=== PATIENT | female | born 1950 | race Caucasian/White ===

== ENCOUNTER 2020-02-08 06:20 | Outpatient (REF) | payer MEDICARE, SELFPAY ==
[2020-02-08 07:39] LABS: MANUAL DIFF FLAG NO
[2020-02-08 07:43] LABS: Basophils Percent Auto 0.4 % (0-2); Eosinophils Absolute Auto 0.2 X10*3/uL (0.0-0.4); Eosinophils Percent Auto 2.1 % (0-4); Hematocrit 44.4 % (37-47); Hemoglobin 14.4 g/dl (12.0-16.0); Imm Gran Abs Auto 0.01 X10*3/uL (0.00-0.03); Imm Gran Pct Auto 0.1 % (0.0-0.4); Lymphocytes Absolute Auto 2.2 X10*3/uL (1.2-4.9); Lymphocytes Percent Auto 29.5 % (20-40); Mean Corpuscular HGB Conc 32.4 g/dl (31.0-35.0); Mean Corpuscular Hemoglobin 28.6 pg (27.0-33.0); Mean Corpuscular Volume 88.3 fL (80-98); Mean Platelet Volume 10.5 fL (9.4-12.3); Monocytes Absolute Auto 0.6 X10*3/uL (0.1-1.2); Monocytes Percent Auto 8.3 % (2-11); Neutrophils Absolute Auto 4.4 X10*3/uL (2.0-8.3); Neutrophils Percent Auto 59.6 % (45-73); Platelet Count 231 X10*3/uL (160-400); Red Blood Count 5.03 X10*6/uL (4.20-5.50); Red Cell Distribution Width 13.6 % (11.0-16.0); White Blood Count 7.3 X10*3/uL (4.8-10.8)
[2020-02-08 08:18] LABS: Alanine Aminotransferase 14 U/L (0-31); Alkaline Phosphatase 96 U/L (39-117); Anion Gap 14 (12-20); Aspartate Amino Transferase 17 U/L (5-31); Bilirubin Total 0.3 mg/dL (0.0-1.0); Blood Urea Nitrogen 11 mg/dL (9-16); Calcium 8.5 mg/dL (8.4-10.2); Carbon Dioxide 28 mmol/L (22-29); Chloride 104 mmol/L (96-108); Cholesterol 188 mg/dL; Estimated Glomerular Filt Rate > 60; Glucose Fasting 104 mg/dL (60-99); HDL Cholesterol 50 mg/dL; LDL Cholesterol Calculated 120 mg/dl; Potassium 4.5 mmol/l (3.3-5.1); Sodium 141 mmol/L (135-145); Total Protein 6.8 g/dL (6.5-8.0); Triglycerides 93 mg/dL
== END 2020-02-08 06:21 | disposition home or self-care (01) ==
LOC: HO.LAB 06:20
PROVIDERS: Visit Provider Internal Medicine Medical Oncology
DX: E66.9 Obesity, unspecified (principal); E78.5 Hyperlipidemia, unspecified
CPT/HCPCS: 36415; 80053; 80061; 85025

== ENCOUNTER 2020-06-04 07:20 | Outpatient (REF) | payer MEDICARE, SELFPAY ==
[2020-06-04 07:55] LABS: MANUAL DIFF FLAG NO
[2020-06-04 08:00] LABS: Basophils Percent Auto 0.5 % (0-2); Eosinophils Absolute Auto 0.2 X10*3/uL (0.0-0.4); Eosinophils Percent Auto 2.8 % (0-4); Hematocrit 45.5 % (37-47); Hemoglobin 14.9 g/dl (12.0-16.0); Imm Gran Abs Auto 0.02 X10*3/uL (0.00-0.03); Imm Gran Pct Auto 0.3 % (0.0-0.4); Lymphocytes Absolute Auto 2.8 X10*3/uL (1.2-4.9); Lymphocytes Percent Auto 37.4 % (20-40); Mean Corpuscular HGB Conc 32.7 g/dl (31.0-35.0); Mean Corpuscular Hemoglobin 28.7 pg (27.0-33.0); Mean Corpuscular Volume 87.7 fL (80-98); Mean Platelet Volume 10.3 fL (9.4-12.3); Monocytes Absolute Auto 0.6 X10*3/uL (0.1-1.2); Neutrophils Absolute Auto 3.9 X10*3/uL (2.0-8.3); Platelet Count 217 X10*3/uL (160-400); Red Blood Count 5.19 X10*6/uL (4.20-5.50); Red Cell Distribution Width 14.1 % (11.0-16.0); White Blood Count 7.5 X10*3/uL (4.8-10.8)
[2020-06-04 08:28] LABS: Alanine Aminotransferase 14 U/L (0-31); Alkaline Phosphatase 90 U/L (39-117); Anion Gap 11 (12-20); Aspartate Amino Transferase 15 U/L (5-31); Bilirubin Total 0.5 mg/dL (0.0-1.0); Blood Urea Nitrogen 12 mg/dL (9-16); Calcium 8.9 mg/dL (8.4-10.2); Carbon Dioxide 30 mmol/L (22-29); Chloride 105 mmol/L (96-108); Estimated Glomerular Filt Rate > 60; Glucose Fasting 105 mg/dL (60-99); Potassium 4.3 mmol/L (3.3-5.1); Sodium 142 mmol/L (135-145); Total Protein 6.7 g/dL (6.5-8.0)
[2020-06-04 08:50] LABS: Free T4 (Free Thyroxine) 0.96 ng/dL (0.71-1.85); Thyroid Stimulating Hormone 0.61 uIU/mL (0.32-4.0); Vitamin D 25-OH Total 61.4 ng/mL (>30)
== END 2020-06-04 07:21 | disposition home or self-care (01) ==
LOC: HO.LAB 07:20
PROVIDERS: PCP Internal Medicine Medical Oncology; Visit Provider Internal Medicine Medical Oncology
DX: E78.5 Hyperlipidemia, unspecified (principal); E66.9 Obesity, unspecified
CPT/HCPCS: 36415; 80053; 82306; 84439; 84443; 85025

== ENCOUNTER 2020-09-12 06:06 | Outpatient (REF) | payer MEDICARE, SELFPAY | END 2020-09-12 06:07 | disposition home or self-care (01) | LOC: HO.LAB 06:06 | PROVIDERS: PCP Psychiatry & Neurology Neurology; Visit Provider Internal Medicine Medical Oncology | DX: G40.209 Localization-related (focal) (partial) symptomatic epilepsy and epileptic syndromes with complex partial seizures, not intractable, without status epilepticus (principal) | CPT/HCPCS: 36415; 80184 ==

== ENCOUNTER 2020-12-13 06:32 | Outpatient (REF) | payer MEDICARE, SELFPAY ==
[2020-12-13 07:54] LABS: MANUAL DIFF FLAG NO
[2020-12-13 08:01] LABS: Basophils Percent Auto 0.5 % (0-2); Eosinophils Absolute Auto 0.2 X10*3/uL (0.0-0.4); Eosinophils Percent Auto 2.5 % (0-4); Hematocrit 43.2 % (37-47); Hemoglobin 14.2 g/dl (12.0-16.0); Imm Gran Abs Auto 0.01 X10*3/uL (0.00-0.03); Imm Gran Pct Auto 0.2 % (0.0-0.4); Lymphocytes Absolute Auto 3.2 X10*3/uL (1.2-4.9); Lymphocytes Percent Auto 49.6 % (20-40); Mean Corpuscular HGB Conc 32.9 g/dl (31.0-35.0); Mean Corpuscular Volume 88.2 fL (80-98); Mean Platelet Volume 10.3 fL (9.4-12.3); Monocytes Absolute Auto 0.6 X10*3/uL (0.1-1.2); Monocytes Percent Auto 9.4 % (2-11); Neutrophils Absolute Auto 2.5 X10*3/uL (2.0-8.3); Neutrophils Percent Auto 37.8 % (45-73); Platelet Count 188 X10*3/uL (160-400); Red Cell Distribution Width 13.7 % (11.0-16.0); White Blood Count 6.5 X10*3/uL (4.8-10.8)
[2020-12-13 08:27] LABS: Alanine Aminotransferase 13 U/L (0-31); Albumin Level 3.9 g/dL (3.5-5.0); Alkaline Phosphatase 89 U/L (39-117); Anion Gap 10 (12-20); Aspartate Amino Transferase 16 U/L (5-31); Bilirubin Total 0.3 mg/dL (0.0-1.0); Blood Urea Nitrogen 15 mg/dL (9-16); Carbon Dioxide 32 mmol/L (22-29); Chloride 105 mmol/L (96-108); Cholesterol 179 mg/dL; Estimated Glomerular Filt Rate > 60; Glucose Fasting 91 mg/dL (60-99); HDL Cholesterol 60 mg/dL; LDL Cholesterol Calculated 105 mg/dl; Potassium 4.5 mmol/L (3.3-5.1); Sodium 142 mmol/L (135-145); Total Protein 6.4 g/dL (6.5-8.0); Triglycerides 72 mg/dL
[2020-12-13 08:51] LABS: Free T4 (Free Thyroxine) 0.99 ng/dL (0.71-1.85); Thyroid Stimulating Hormone 1.29 uIU/mL (0.32-4.0)
== END 2020-12-13 06:33 | disposition home or self-care (01) ==
LOC: HO.LAB 06:32
PROVIDERS: PCP Internal Medicine Medical Oncology; Visit Provider Internal Medicine Medical Oncology
DX: E78.5 Hyperlipidemia, unspecified (principal); E03.9 Hypothyroidism, unspecified; E66.9 Obesity, unspecified
CPT/HCPCS: 36415; 80053; 80061; 84439; 84443; 85025

== ENCOUNTER 2021-05-15 10:46 | Outpatient (REF) | payer MEDICARE, SELFPAY ==
--- NOTE | ~2021-05-15 | MM_ITS ---
EXAMINATION: MM SCREENING DIGITAL BREAST TOMOSYNTHESIS, BILATERAL CLINICAL INFORMATION: Screening. Asymptomatic. Family history breast cancer, sister. The lifetime risk of breast cancer based on the Tyrer-Cuzick Model is 10%. COMPARISON: Mammography: 12/23/2019, 12/17/2018, 12/10/2017 TECHNIQUE: Digital breast tomosynthesis is performed in both the craniocaudal and mediolateral oblique views along with computer-aided detection (CAD). Synthesized 2D images are generated from the tomosynthesis. FINDINGS: There are scattered areas of fibroglandular density (ACR BI-RADS breast composition Category b). The breasts are mildly symmetrically smaller with secondary mild increased density consistent with weight loss. The parenchymal pattern is otherwise similar to prior exams. There is no developing density or interval mass or architectural abnormality or abnormal calcifications. The axilla and skin contours are unremarkable. MM/MM tomosynthesis screening BI IMPRESSION: No significant changes from prior studies. ASSESSMENT: BI-RADS 2: Benign RECOMMENDATION: Routine annual mammography screening. This patient's information was entered into a reminder system with a target due date for their next mammogram.
== END 2021-05-15 10:47 | disposition home or self-care (01) ==
LOC: HO.MAMMO 10:46
PROVIDERS: PCP Internal Medicine Medical Oncology; Visit Provider Internal Medicine Medical Oncology
DX: Z12.31 Encounter for screening mammogram for malignant neoplasm of breast (principal)
CPT/HCPCS: 77063; 77067

== ENCOUNTER 2021-08-14 06:23 | Outpatient (REF) | payer MEDICARE, SELFPAY ==
[2021-08-14 06:33] LABS: MANUAL DIFF FLAG NO
[2021-08-14 07:16] LABS: Basophils Percent Auto 0.5 % (0-2); Eosinophils Absolute Auto 0.2 X10*3/uL (0.0-0.4); Eosinophils Percent Auto 2.8 % (0-4); Hematocrit 43.8 % (37.0-47.0); Hemoglobin 14.3 g/dl (12.0-16.0); Imm Gran Abs Auto 0.01 X10*3/uL (0.00-0.03); Imm Gran Pct Auto 0.2 % (0.0-0.4); Lymphocytes Absolute Auto 3.2 X10*3/uL (1.2-4.9); Lymphocytes Percent Auto 50.3 % (20-40); Mean Corpuscular HGB Conc 32.6 g/dl (31.0-35.0); Mean Corpuscular Hemoglobin 29.2 pg (27.0-33.0); Mean Corpuscular Volume 89.4 fL (80.0-98.0); Mean Platelet Volume 9.8 fL (9.4-12.3); Monocytes Absolute Auto 0.6 X10*3/uL (0.1-1.2); Monocytes Percent Auto 8.9 % (2-11); Neutrophils Absolute Auto 2.4 x10*3/uL (2.0-8.3); Neutrophils Percent Auto 37.3 % (45-73); Platelet Count 186 X10*3/uL (160-400); Red Cell Distribution Width 13.2 % (11.0-16.0); White Blood Count 6.4 X10*3/uL (4.8-10.8)
[2021-08-14 07:43] LABS: Alanine Aminotransferase 16 U/L (0-31); Albumin Level 4.1 g/dL (3.5-5.0); Alkaline Phosphatase 94 U/L (39-117); Anion Gap 11 (12-20); Aspartate Amino Transferase 18 U/L (5-31); Bilirubin Total 0.2 mg/dL (0.0-1.0); Blood Urea Nitrogen 18 mg/dL (9-16); Calcium 9.6 mg/dL (8.4-10.2); Carbon Dioxide 32 mmol/L (22-29); Chloride 102 mmol/L (96-108); Cholesterol 213 mg/dL; Estimated Glomerular Filt Rate 57; Glucose Fasting 99 mg/dL (60-99); HDL Cholesterol 65 mg/dL; LDL Cholesterol Calculated 123 mg/dl; Potassium 4.4 mmol/L (3.3-5.1); Sodium 141 mmol/L (135-145); Triglycerides 125 mg/dL
[2021-08-14 08:06] LABS: Thyroid Stimulating Hormone 1.79 uIU/mL (0.32-4.0)
== END 2021-08-14 06:24 | disposition home or self-care (01) ==
LOC: HO.LAB 06:23
PROVIDERS: PCP Internal Medicine Medical Oncology; Visit Provider Internal Medicine Medical Oncology
DX: E03.9 Hypothyroidism, unspecified (principal); E78.5 Hyperlipidemia, unspecified; E66.3 Overweight
CPT/HCPCS: 36415; 80053; 80061; 84439; 84443; 85025

== ENCOUNTER → 2022-03-12 15:22 | Outpatient (BNVA) | payer MEDICARE, SELFPAY | PROVIDERS: PCP Internal Medicine Medical Oncology; Visit Provider Obstetrics & Gynecology | DX: N75.0 Cyst of Bartholin's gland (principal) | CPT/HCPCS: 99202 ==

== ENCOUNTER 2022-05-21 10:40 | Outpatient (REF) | payer MEDICARE, SELFPAY ==
--- NOTE | ~2022-05-21 | MM_ITS ---
EXAMINATION: MM SCREENING DIGITAL BREAST TOMOSYNTHESIS, BILATERAL CLINICAL INFORMATION: Screening. Asymptomatic. Family history breast cancer, sister. The lifetime risk of breast cancer based on the Tyrer-Cuzick Model is 4%. COMPARISON: Mammography: 05/15/2021, 12/23/2019, 12/17/2018 TECHNIQUE: Digital breast tomosynthesis is performed in both the craniocaudal and mediolateral oblique views along with computer-aided detection (CAD). Synthesized 2D images are generated from the tomosynthesis. FINDINGS: There are scattered areas of fibroglandular density (ACR BI-RADS breast composition Category b). There are no significant masses, abnormal calcifications, or other abnormalities. No architectural abnormality or developing density or significant change from prior studies. The skin contours are smooth. MM/MM tomosynthesis screening BI IMPRESSION: No mammographic evidence of malignancy. ASSESSMENT: BI-RADS 1: Negative RECOMMENDATION: Routine annual mammography screening. This patient's information was entered into a reminder system with a target due date for their next mammogram.
== END 2022-05-21 10:41 | disposition home or self-care (01) ==
LOC: HO.MAMMO 10:40
PROVIDERS: PCP Internal Medicine Medical Oncology; Visit Provider Internal Medicine Medical Oncology
DX: Z12.31 Encounter for screening mammogram for malignant neoplasm of breast (principal)
CPT/HCPCS: 77063; 77067

== ENCOUNTER → 2022-06-13 08:59 | Outpatient (BNVA) | payer MEDICARE, SELFPAY | PROVIDERS: PCP Internal Medicine Medical Oncology; Visit Provider Obstetrics & Gynecology | DX: Z13.89 Encounter for screening for other disorder (principal) ==

== ENCOUNTER 2022-06-23 07:40 | Outpatient (REF) | payer MEDICARE, SELFPAY ==
[2022-06-23 08:10] LABS: MANUAL DIFF FLAG NO
[2022-06-23 08:49] LABS: Basophils Percent Auto 0.6 % (0-2); Eosinophils Absolute Auto 0.2 X10*3/uL (0.0-0.4); Eosinophils Percent Auto 2.9 % (0-4); Hematocrit 45.5 % (37.0-47.0); Hemoglobin 14.7 g/dl (12.0-16.0); Imm Gran Abs Auto 0.02 X10*3/uL (0.00-0.03); Imm Gran Pct Auto 0.3 % (0.0-0.4); Lymphocytes Absolute Auto 2.3 X10*3/uL (1.2-4.9); Lymphocytes Percent Auto 34.6 % (20-40); Mean Corpuscular HGB Conc 32.3 g/dl (31.0-35.0); Mean Corpuscular Hemoglobin 27.6 pg (27.0-33.0); Mean Corpuscular Volume 85.5 fL (80.0-98.0); Mean Platelet Volume 9.6 fL (9.4-12.3); Monocytes Absolute Auto 0.7 X10*3/uL (0.1-1.2); Monocytes Percent Auto 10.5 % (2-11); Neutrophils Absolute Auto 3.4 x10*3/uL (2.0-8.3); Neutrophils Percent Auto 51.1 % (45-73); Platelet Count 242 X10*3/uL (160-400); Red Blood Count 5.32 X10*6/uL (4.20-5.50); Red Cell Distribution Width 13.5 % (11.0-16.0); White Blood Count 6.6 X10*3/uL (4.8-10.8)
[2022-06-23 09:39] LABS: Alanine Aminotransferase 16 U/L (0-31); Alkaline Phosphatase 108 U/L (39-117); Anion Gap 13 (12-20); Aspartate Amino Transferase 16 U/L (5-31); Bilirubin Total 0.4 mg/dL (0.0-1.0); Blood Urea Nitrogen 18 mg/dL (9-16); Calcium 9.2 mg/dL (8.4-10.2); Carbon Dioxide 28 mmol/L (22-29); Chloride 104 mmol/L (96-108); Estimated Glomerular Filt Rate > 60; Glucose Fasting 95 mg/dL (60-99); Sodium 140 mmol/L (135-145); Total Protein 6.8 g/dL (6.5-8.0)
[2022-06-23 09:43] LABS: Free T4 (Free Thyroxine) 0.94 ng/dL (0.71-1.85); Thyroid Stimulating Hormone 0.72 uIU/mL (0.32-4.0); Vitamin D 25-OH Total 47.9 ng/mL (>30)
== END 2022-06-23 07:41 | disposition home or self-care (01) ==
LOC: HO.LAB 07:40
PROVIDERS: PCP Internal Medicine Medical Oncology; Visit Provider Internal Medicine Medical Oncology
DX: G40.219 Localization-related (focal) (partial) symptomatic epilepsy and epileptic syndromes with complex partial seizures, intractable, without status epilepticus (principal); E03.9 Hypothyroidism, unspecified; E78.5 Hyperlipidemia, unspecified; E66.3 Overweight; Z79.899 Other long term (current) drug therapy
CPT/HCPCS: 36415; 80053; 80184; 82306; 84439; 84443; 85025

== ENCOUNTER 2022-07-18 09:19 | Outpatient (REF) | payer MEDICARE, SELFPAY ==
--- NOTE | ~2022-07-18 | MM_ITS ---
EXAMINATION: BONE DENSITOMETRY CLINICAL INDICATION: Asymptomatic menopausal state. COMPARISON: None (current study represents initial baseline exam). TECHNIQUE: Using a Zerply DXA System (software version: 13.1) manufactured by [employer], dual-energy x-ray absorptiometry was performed of the lumbar spine and left hip. The images are of good technical quality. Summary results are attached. FINDINGS: AP SPINE L1-L4: BMD 1.023 g/cm2, Z-score 0.0, T-score -1.3, osteopenia. LEFT FEMUR, NECK: BMD 0.733 g/cm2, Z-score -0.7, T-score -2.2, osteopenia. LEFT FEMUR, TOTAL: BMD 0.770 g/cm2, Z-score -0.6, T-score -1.9, osteopenia. IDENTIFIED RISK FACTORS: Anticonvulsant, menopause. HISTORY OF FRACTURE: None listed. MEDICATIONS: Calcium supplements or multivitamin, vitamin D. MM/XR DEXA axial skeleton IMPRESSION: 1. DIAGNOSIS: Osteopenia based on the lowest T-score value of -2.2 in the femoral neck applying World Health Organization criteria. 2. 10-YEAR FRACTURE RISK PREDICTION, FRAX: Major osteoporotic fracture (clinical spine, forearm, hip or shoulder) 12.5%. Hip fracture 2.8%. 3. Treatment Recommendations: NOF guidelines recommend consideration for treatment in postmenopausal women and men age 50 and older presenting with the following: -A hip or vertebral (clinical or morphometric) fracture. -T-score less than or equal to -2.5 at the femoral neck or spine after appropriate evaluation to exclude secondary causes. -Low bone mass at the hip or spine and a 10-year fracture probability by FRAX of greater than or equal to 3% for hip fracture or greater than or equal to 20% for major osteoporotic fracture based on the [place] adapted WHO algorithm. 4. Other Recommendations: All treatment decisions require clinical judgment and consideration of individual patient factors, including patient preferences, comorbidities, previous drug use, risk factors not captured in the FRAX model (e.g. frailty, falls, vitamin D deficiency, increased bone turnover, interval significant decline in bone density) and possible under or overestimation of fracture risk by FRAX. Additional medical evaluation for secondary cause of low bone mineral density may be appropriate. FUTURE SCAN RECOMMENDATION: People with diagnosed cases of osteoporosis or at high risk for fracture should have regular bone mineral density tests. For patients eligible for Medicare, routine testing is allowed once every 2 years. The testing frequency can be increased to one year for patients who have rapidly progressing disease, those who are receiving or discontinuing medical therapy to restore bone mass, or have additional risk factors.
== END 2022-07-18 09:20 | disposition home or self-care (01) ==
LOC: HO.MAMMO 09:19
PROVIDERS: PCP Internal Medicine Medical Oncology; Visit Provider Obstetrics & Gynecology
DX: Z13.820 Encounter for screening for osteoporosis (principal); Z78.0 Asymptomatic menopausal state
CPT/HCPCS: 77080

== ENCOUNTER → 2022-08-15 10:18 | Outpatient (BNVA) | payer MEDICARE, SELFPAY | PROVIDERS: PCP Internal Medicine Medical Oncology; Visit Provider Obstetrics & Gynecology | DX: M85.80 Other specified disorders of bone density and structure, unspecified site (principal) | CPT/HCPCS: 99212 ==

== ENCOUNTER → 2022-09-27 15:40 | Outpatient (BNVA) | payer MEDICARE, SELFPAY | PROVIDERS: PCP Internal Medicine Medical Oncology; Visit Provider Internal Medicine Endocrinology, Diabetes & Metabolism | DX: E03.9 Hypothyroidism, unspecified (principal); R63.5 Abnormal weight gain; Z68.34 Body mass index [BMI] 34.0-34.9, adult; Z79.899 Other long term (current) drug therapy | CPT/HCPCS: 99212 ==

== ENCOUNTER 2022-11-07 10:29 | Outpatient (AMB) | payer MEDICARE, SELFPAY ==
--- NOTE | 2022-11-07 10:40 | A.OFFVIS_ITS ---
Intake VS Expanded 11/07/22 10:47 Height 5 ft Weight 175 lb 0.752 oz BMI 34.2 Intake Visit Reasons: f/u hypothyroidism Allergies divalproex sodium [From DEPAKOTE] Allergy (Unknown, Verified 09/27/22 15:45) UNKNOWN phenytoin [Dilantin] Allergy (Unknown, Verified 09/27/22 15:45) hives From DILANTIN Allergy (Mild, Uncoded 09/27/22 15:45) HIVES Benadryl Adverse Reaction (Unknown, Uncoded 09/27/22 15:45) rapid heart beat HPI Nutrition Presentation Details Pt presents for MNT for weight gain. Pt was referred by Dr. Chavis Pt reports having tried noom for weight loss in 2019 and was able to reach 138 lbs from 245 lbs . Pt reports in the the past 2 years she has gradually gained weight. Per recorded wt here at [facility] in 03/2022 weight was 170 today 11/07/22 at 175 lbs. Pt reports typically eating 3 meals per day , choosing lean protein foods and salads, admits to gradually increase frequency of higher fat foods /snacks. Breakfast 2good yogurt with 1/2 c blackberries , sour dough bread L: salad with protein chicken , yogurt dressing D: poultry/zucchini, water eating out: 2 x/wk Snacks/empty fer : 2x/wk fish : 0-1/m fruits:0-1/d vegetables : 2-4 serving/d dairy:3 servings/da starches> 19 serving/d fluids: water, , cofee physical activity: sedentary ETOH/SMOking: denies JGZ-Hgxgzzx-Pp.Jeor Equation Height 5 ft Weight 175 lb Resting Metabolic Rate 1235.17 Calculated Activity Level Sedentary Calories Needed to Maintain Weight 1482.20 Diagnosis Nutrition problem #1 overweight/obesity As related to (etiology) #1 excess energy intake As evidenced by (sign/symptom) #1 high BMI (34.2 on 11/07/22) Most Recent Diabetes Results: Cholesterol 213 mg/dL 08/14/21 HDL Cholesterol 65 mg/dL 08/14/21 Triglycerides 125 mg/dL 08/14/21 Creatinine 0.84 mg/dL (0.5-1.4) 06/23/22 Blood Urea Nitrogen 18 mg/dL (9-16) H 06/23/22 Sodium 140 mmol/L (135-145) 06/23/22 Potassium 5.0 mmol/L (3.3-5.1) 06/23/22 Chloride 104 mmol/L (96-108) 06/23/22 Carbon Dioxide 28 mmol/L (22-29) 06/23/22 Calcium 9.2 mg/dL (8.4-10.2) 06/23/22 AST 16 U/L (5-31) 06/23/22 ALT 16 U/L (0-31) 06/23/22 Total Protein 6.8 g/dL (6.5-8.0) 06/23/22 Albumin 4.0 g/dL (3.5-5.0) 06/23/22 [facility] Medical History (Updated 09/27/22 @ 16:18 by Elian Chavis MD) Hypothyroidism Seizure Weight gain Surgical History H/O tubal ligation History of cholecystectomy History of tonsillectomy and adenoidectomy Family History Father HTN (hypertension) Diabetes Mother HTN (hypertension) Diabetes Hyperlipemia Social History Household Members: Spouse Housing: House Alcohol intake: never Patient Tobacco Use Status: Never used Tobacco Current occupational status: retired Sexual orientation: Straight/Heterosexual Gender identity: Female Female Reproductive History Menstrual Age of Menarche: 13 Assessment & Plan Assessment & Plan (1) Weight gain: Code(s): R63.5 - Abnormal weight gain Plan: wt: 80 Est kcal needs as per MSJ: 5086-6976 (40% carb, 30% protein/fat) Est fluid needs as per 25-30 ml/d: 2000 Est prot per day as per 1 g/kg bw: 80 Recommend fiber intake : 8-10 g per day and gradually increase to 25-28 g per day for women or as tolerated Recommend sodium intake per day : less than 2000 mg Educated patient on: ( R = reviewed V = verbalizes understanding N/R = needs review N/A = not applicable * Food sources of carbohydrate, adequate serving sizes and its role in various health conditions: R V * Differences between complex carbohydrates a simple carbohydrates, role of fiber in diet: R V * Differences between types of fats and role in diet (mono on saturated fat fatty acids, saturated fatty acids, trans fats): R V * Food sources of sodium in salt and healthy modifications for heart health in kidney health: R V * Healthy plate method concept: R V * Physical activity: Benefits a precaution: R V Patient Instructions: Reduce on fat intake by: have a fruit in place of pastries on a daily basis Choose to bake/grill/steam in stead of frying Practive mindful eating Coding Level of Care Code Nutr Indiv Intake (48857) Diagnoses Weight gain R63.5 Time Spent (min) 30
[2022-11-07 10:47] VITALS: BMI 34.2
[2022-11-12 12:52] VITALS: BMI 34.2
== END 2022-11-07 11:17 | disposition home or self-care (01) ==
PROVIDERS: PCP Internal Medicine Medical Oncology; Visit Provider Dietitian, Registered
DX: R63.5 Abnormal weight gain (principal)

== ENCOUNTER → 2022-11-07 10:29 | Outpatient (BNVA) | payer MEDICARE, SELFPAY | PROVIDERS: PCP Internal Medicine Medical Oncology; Visit Provider Dietitian, Registered | DX: R63.5 Abnormal weight gain (principal) | CPT/HCPCS: 97802 ==

== ENCOUNTER 2022-12-25 06:33 | Outpatient (REF) | payer MEDICARE, SELFPAY ==
[2022-12-25 06:44] LABS: MANUAL DIFF FLAG NO
[2022-12-25 07:17] LABS: Basophils Percent Auto 0.6 % (0-2); Eosinophils Absolute Auto 0.2 X10*3/uL (0.0-0.4); Eosinophils Percent Auto 3.3 % (0-4); Hematocrit 43.5 % (37.0-47.0); Hemoglobin 14.1 g/dl (12.0-16.0); Imm Gran Abs Auto 0.01 X10*3/uL (0.00-0.03); Imm Gran Pct Auto 0.1 % (0.0-0.4); Lymphocytes Absolute Auto 3.5 X10*3/uL (1.2-4.9); Lymphocytes Percent Auto 48.8 % (20-40); Mean Corpuscular HGB Conc 32.4 g/dl (31.0-35.0); Mean Corpuscular Hemoglobin 28.5 pg (27.0-33.0); Mean Corpuscular Volume 88.1 fL (80.0-98.0); Mean Platelet Volume 9.6 fL (9.4-12.3); Monocytes Absolute Auto 0.6 X10*3/uL (0.1-1.2); Monocytes Percent Auto 8.3 % (2-11); Neutrophils Absolute Auto 2.8 x10*3/uL (2.0-8.3); Neutrophils Percent Auto 38.9 % (45-73); Platelet Count 218 X10*3/uL (160-400); Red Blood Count 4.94 X10*6/uL (4.20-5.50); Red Cell Distribution Width 13.5 % (11.0-16.0); White Blood Count 7.2 X10*3/uL (4.8-10.8)
[2022-12-25 07:50] LABS: Alanine Aminotransferase 11 U/L (0-31); Albumin Level 3.7 g/dL (3.5-5.0); Alkaline Phosphatase 104 U/L (39-117); Anion Gap 12 (12-20); Aspartate Amino Transferase 14 U/L (5-31); Bilirubin Total 0.3 mg/dL (0.0-1.0); Blood Urea Nitrogen 13 mg/dL (9-16); Calcium 8.9 mg/dL (8.4-10.2); Carbon Dioxide 27 mmol/L (22-29); Chloride 107 mmol/L (96-108); Cholesterol 201 mg/dL (<200); Estimated Glomerular Filt Rate > 60; Glucose Fasting 99 mg/dL (60-99); HDL Cholesterol 65 mg/dL (>40); LDL Cholesterol Calculated 119 mg/dL (<100); Potassium 4.1 mmol/L (3.3-5.1); Sodium 142 mmol/L (135-145); Total Protein 6.7 g/dL (6.5-8.0); Triglycerides 86 mg/dL (<150)
[2022-12-25 08:06] LABS: Free T4 (Free Thyroxine) 0.93 ng/dL (0.71-1.85)
== END 2022-12-25 06:34 | disposition home or self-care (01) ==
LOC: HO.LAB 06:33
PROVIDERS: Internal Medicine Endocrinology, Diabetes & Metabolism; Visit Provider Internal Medicine Medical Oncology
DX: E03.9 Hypothyroidism, unspecified (principal); E78.5 Hyperlipidemia, unspecified; E66.9 Obesity, unspecified
CPT/HCPCS: 36415; 80053; 80061; 84439; 84443; 85025

== ENCOUNTER 2023-03-27 10:02 | Outpatient (AMB) | payer MEDICARE, SELFPAY ==
--- NOTE | 2023-03-27 10:03 | MHC.OFFVIS ---
Intake Vital Signs 03/27/23 10:04 Height 5 ft Weight 185 lb 13.595 oz BMI 36.3 BP 120/82 Blood Pressure Location Lt brachial Position Sitting Pulse 74 Pulse Source Pulse Oximeter Intake Visit Reasons: f/u hypothyroidism-LVM Intake Note: Patient present today for Hypothyroidism follow up visit. Material Processor Required: No Accompanied by: Self / Same As Patient Allergies divalproex sodium [From DEPAKOTE] Allergy (Unknown, Verified 03/27/23 10:10) UNKNOWN phenytoin [Dilantin] Allergy (Unknown, Verified 03/27/23 10:10) hives From DILANTIN Allergy (Mild, Uncoded 09/27/22 15:45) HIVES Benadryl Adverse Reaction (Unknown, Uncoded 09/27/22 15:45) rapid heart beat HPI HPI Comments History of Present Illness Details This is a 72-year-old white female previously seen by myself here at [place] for management of hypothyroidism. Patient is currently on Levoxyl 125 mcg q.d.. She denies any symptoms of hypothyroidism hyperthyroidism [facility] Medical History (Updated 09/27/22 @ 16:18 by Elian Chavis MD) Weight gain Seizure Hypothyroidism Surgical History History of cholecystectomy History of tonsillectomy and adenoidectomy H/O tubal ligation Family History Father HTN (hypertension) Diabetes Mother HTN (hypertension) Diabetes Hyperlipemia Social History Household Members: Spouse Housing: House Alcohol intake: never Patient Tobacco Use Status: Never used Tobacco Current occupational status: retired Sexual orientation: Straight/Heterosexual Gender identity: Female Female Reproductive History Menstrual Age of Menarche: 13 Physical Exam Vital Signs: Last Vital Signs Pulse 74 03/27/23 10:04 BP 120/82 03/27/23 10:04 BMI result Body Mass Index 36.3 Const Other: Thyroid gland is normal size weighs about 15 g . There are no thyroid nodules palpated. Reflexes 2+ DTR Assessment & Plan Assessment & Plan (1) Hypothyroidism: Code(s): E03.9 - Hypothyroidism, unspecified Plan: This 72-year-old white female with a history of hypothyroidism be replaced on 125 mcg of Levoxyl She appears to be clinically and biochemically euthyroid Plan is to continue current management (2) Weight gain: Code(s): R63.5 - Abnormal weight gain Plan: See above plan for thyroid Medications: Refilled Levoxyl (levothyroxine) 125 mcg PO DAILY 30 tabs 5RF NS Coding Level of Care Code Est Pt Level 3 (55520) Diagnoses Hypothyroidism E03.9 Weight gain R63.5
[2023-03-27 10:04] VITALS: BP 120/82; PULSE 74; BMI 36.3
== END 2023-03-27 10:40 | disposition home or self-care (01) ==
PROVIDERS: PCP Internal Medicine Medical Oncology; Visit Provider Internal Medicine Endocrinology, Diabetes & Metabolism
DX: E03.9 Hypothyroidism, unspecified (principal); R63.5 Abnormal weight gain
CPT/HCPCS: 99213

== ENCOUNTER → 2023-03-27 10:02 | Outpatient (BNVA) | payer MEDICARE, SELFPAY | PROVIDERS: PCP Internal Medicine Medical Oncology; Visit Provider Internal Medicine Endocrinology, Diabetes & Metabolism | DX: E03.9 Hypothyroidism, unspecified (principal); R63.5 Abnormal weight gain | CPT/HCPCS: 99212 ==

== ENCOUNTER 2023-05-24 10:57 | Outpatient (REF) | payer MEDICARE, SELFPAY | END 2023-05-24 10:58 | disposition home or self-care (01) | LOC: HO.MAMMO 10:57 | PROVIDERS: PCP Internal Medicine Medical Oncology; Visit Provider Internal Medicine Medical Oncology | DX: Z12.31 Encounter for screening mammogram for malignant neoplasm of breast (principal) | CPT/HCPCS: 77063; 77067 ==

== ENCOUNTER → 2023-05-24 11:00 | Outpatient (BNV) | payer MEDICARE, SELFPAY | PROVIDERS: PCP Internal Medicine Medical Oncology; Visit Provider Radiology Diagnostic Radiology | DX: Z12.31 Encounter for screening mammogram for malignant neoplasm of breast (principal) | CPT/HCPCS: 77063; 77067 ==

== ENCOUNTER 2023-07-12 15:00 | Outpatient (REF) | payer MEDICARE, SELFPAY ==
--- NOTE | ~2023-07-12 | XR_ITS ---
EXAMINATION: XR CHEST CLINICAL INFORMATION: Pneumonia COMPARISON: Chest x-ray July 26, 2015 TECHNIQUE: 2 views of the chest were obtained. FINDINGS: Lungs are clear. No pulmonary vascular congestion. There is no pleural effusion. The heart size is normal. The cardiac and mediastinal contours are normal. There are multilevel degenerative changes of dorsal spine. Surgical clips right upper quadrant of abdomen XR/XR chest 2V IMPRESSION: Unremarkable examination.
== END 2023-07-12 15:01 | disposition home or self-care (01) ==
LOC: HO.XRAY 15:00
PROVIDERS: PCP Internal Medicine Medical Oncology; Visit Provider Internal Medicine Medical Oncology
DX: J18.9 Pneumonia, unspecified organism (principal)
CPT/HCPCS: 71046

== ENCOUNTER 2023-08-20 09:32 | Outpatient (AMB) | payer MEDICARE, SELFPAY ==
[2023-08-20 09:44] VITALS: BP 110/66; BMI 37.3
--- NOTE | 2023-08-20 09:44 | MHC.OFFVIS ---
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 No complaints. Last Pap/HPV was many years ago with no history of abnormal Pap smears last 25 Last Mammogram was BI-RADS 1 in 06/01 No previous screening Colonoscopy Last DEXA scan was in 07/29, in the low risk category PFSH Medical History Weight gain Seizure Hypothyroidism Surgical History History of cholecystectomy History of tonsillectomy and adenoidectomy H/O tubal ligation Family History Father HTN (hypertension) Diabetes Mother HTN (hypertension) Diabetes Hyperlipemia Social History Household Members: Spouse Housing: House Alcohol intake: never Patient Tobacco Use Status: Never used Tobacco Patient : No Current occupational status: retired Sexual orientation: Straight/Heterosexual Gender identity: Female Female Reproductive History Menstrual Age of Menarche: 13 control method: permanent sterilization Total pregnancies: 2 Full term: 2 Number of Living Children: 2 Date of Mammogram: 05/24/23 Review of Systems Const All systems reviewed & are unremarkable except as noted in HPI and below Card Reports as per HPI Resp Reports as per HPI GI Reports as per HPI and Reports no additional complaints Reports as per HPI Physical Exam Vital Signs: Last Vital Signs BP 110/66 08/20/23 09:44 BMI result Body Mass Index 37.3 Const General: cooperative, healthy appearing and comfortable Chest Chest palpation & inspection: normal inspection of the chest and normal palpation of entire chest wall Breast/axilla inspection: normal inspection of the breasts and normal inspection of the axillae Breast/axilla palpation: normal palpation of the breasts, normal palpation of the axillae and no axillary lymphadenopathy Resp Effort & Inspection: normal respiratory effort Auscultation: clear to auscultation bilaterally Percussion: percussion normal Cardio Palpation: normal PMI Rate: regular rate Rhythm: regular rhythm Heart sounds: no murmurs and no rubs Peripheral pulses: Peripheral pulses 2+ throughout GI Inspection: Yes normal to inspection Palpation (GI): Soft to palpation, nontender, no guarding, not rigid and No hepatosplenomegaly present Percussion: Yes normal to percussion Auscultation: normal bowel sounds Rectal Exam - Female: deferred General: Yes bladder normal to palpation External Female Exam: No lesion Speculum Exam - Vagina: normal appearance of the vagina, normal palpation, normal vaginal discharge and not erythematous Speculum Exam - Cervix: normal appearance of the cervix and normal palpation Bimanual exam- vagina & uterus: normal bimanual exam, normal palpation, uterine size normal, bladder normal to palpation, consistency normal and normal palpation Bimanual Exam- Adnexa, other: normal adnexae, no masses and no tenderness Assessment & Plan Assessment & Plan (1) Well woman exam: Code(s): Z01.419 - Encounter for gynecological examination (general) (routine) without abnormal findings Category: Medical Plan: Co testing not indicated since the patient 's age is above 65 with no history of abnormal Pap smears last 25 years. Counseled the patient about the recommended dietary allowance of 1200 mg of Calcium & 800 IU of vitamin D. Instructions given the patient to schedule next screening Mammogram in 06/02 Offered the patient to be referred for screening colonoscopy , the patient would like to think about it and get back to us The patient was instructed to perform monthly self-breast exams and to schedule a 2 week DEXA scan follow-up appointment and an annual exam in a year; All questions answered and the patient verbalized understanding. Coding Level of Care Code Est Pt Prev Care >65y(98774) Diagnoses Well woman exam Z01.419
== END 2023-08-20 10:05 | disposition home or self-care (01) ==
LOC: HO.HWS 09:32
PROVIDERS: PCP Internal Medicine Medical Oncology; Visit Provider Obstetrics & Gynecology
DX: Z01.419 Encounter for gynecological examination (general) (routine) without abnormal findings (principal)
CPT/HCPCS: 99397; G0101

== ENCOUNTER → 2023-08-20 09:32 | Outpatient (BNVA) | payer MEDICARE, SELFPAY | PROVIDERS: PCP Internal Medicine Medical Oncology; Visit Provider Obstetrics & Gynecology | DX: Z01.419 Encounter for gynecological examination (general) (routine) without abnormal findings (principal); Z98.51 Tubal ligation status; Z78.0 Asymptomatic menopausal state | CPT/HCPCS: G0101 ==

== ENCOUNTER 2024-01-18 07:33 | Outpatient (REF) | payer MEDICARE, SELFPAY ==
[2024-01-18 07:57] LABS: MANUAL DIFF FLAG NO
[2024-01-18 09:01] LABS: Basophils Percent Auto 0.6 % (0-2); Eosinophils Absolute Auto 0.2 X10*3/uL (0.0-0.4); Eosinophils Percent Auto 2.8 % (0-4); Hematocrit 44.4 % (37.0-47.0); Hemoglobin 14.8 g/dl (12.0-16.0); Imm Gran Abs Auto 0.02 X10*3/uL (0.00-0.03); Imm Gran Pct Auto 0.3 % (0.0-0.4); Lymphocytes Absolute Auto 2.4 X10*3/uL (1.2-4.9); Lymphocytes Percent Auto 38.7 % (20-40); Mean Corpuscular HGB Conc 33.3 g/dl (31.0-35.0); Mean Corpuscular Volume 87.1 fL (80.0-98.0); Mean Platelet Volume 9.4 fL (9.4-12.3); Monocytes Absolute Auto 0.5 X10*3/uL (0.1-1.2); Monocytes Percent Auto 8.3 % (2-11); Neutrophils Absolute Auto 3.1 x10*3/uL (2.0-8.3); Neutrophils Percent Auto 49.3 % (45-73); Platelet Count 222 X10*3/uL (160-400); Red Cell Distribution Width 13.7 % (11.0-16.0); White Blood Count 6.2 X10*3/uL (4.8-10.8)
[2024-01-18 09:31] LABS: Alanine Aminotransferase 17 U/L (0-31); Albumin Level 3.9 g/dL (3.5-5.0); Alkaline Phosphatase 107 U/L (39-117); Anion Gap 12 (12-20); Aspartate Amino Transferase 16 U/L (5-31); Bilirubin Total 0.3 mg/dL (0.0-1.0); Blood Urea Nitrogen 14 mg/dL (9-16); Calcium 9.2 mg/dL (8.4-10.2); Carbon Dioxide 29 mmol/L (22-29); Chloride 105 mmol/L (96-108); Cholesterol 229 mg/dL (<200); Estimated Glomerular Filt Rate > 60; Glucose Fasting 108 mg/dL (60-99); HDL Cholesterol 58 mg/dL (>40); LDL Cholesterol Calculated 141 mg/dL (<100); Potassium 4.4 mmol/L (3.3-5.1); Sodium 142 mmol/L (135-145); Total Protein 7.1 g/dL (6.5-8.0); Triglycerides 150 mg/dL (<150)
[2024-01-18 09:43] LABS: Free T4 (Free Thyroxine) 0.86 ng/dL (0.71-1.85); Thyroid Stimulating Hormone 1.96 uIU/mL (0.32-4.0); Vitamin D 25-OH Total 48.1 ng/mL (>30)
== END 2024-01-18 07:34 | disposition home or self-care (01) ==
LOC: HO.LAB 07:33
PROVIDERS: PCP Internal Medicine Medical Oncology; Visit Provider Internal Medicine Medical Oncology
DX: J45.909 Unspecified asthma, uncomplicated (principal); E03.9 Hypothyroidism, unspecified; E78.5 Hyperlipidemia, unspecified; E66.9 Obesity, unspecified
CPT/HCPCS: 36415; 80053; 80061; 82306; 84439; 84443; 85025

== ENCOUNTER 2024-03-25 09:49 | Outpatient (AMB) | payer MEDICARE, SELFPAY ==
--- OUTSIDE RECORDS SUMMARY | 2024-03-25 09:52 | XMS_ITS ---
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 Name Role Phone Elian Russell Primary Care Provider REASON FOR VISIT Chest Cold-Message Only Social History Sex Assigned At : Social History Observation Description Sex Assigned At Female Encounters Encounter Location Date Provider Diagnosis Elian Russell III, MD [address] [place] [address] [place] [address] 02/07/2024 Elian Russell Plan Of Treatment Next Appt Details Provider Name:Elian Russell, 06/26/2024 10:00:00 AM, [address] [place] [address] [place], [address], Provider Name:Elian Russell, 01/27/2025 03:00:00 PM, [address] [place] [address] [place], [address], Progress Notes * Bjorn CORTEZOB:1950 (73 yo F)Acc No.[id number]:02/07/2024 Patient:?Barbara CORTEZ :1950???Age:73 Y???Sex:Female Address:[address] [place], [address] * true * Date:? Generated for Printi sabrina/Lorenzo/eTransmitting on:?03/25/2024 09:52 AM EST
--- OUTSIDE RECORDS SUMMARY | 2024-03-25 09:52 | XMS_ITS ---
Author Organization Elian Russell III, MD Address [address] [place] [address] Care Team Providers Care Emergency Room Rn Name Role Phone Elian Russell Primary Care Provider Allergies Allergen (clinical drug ingredient) Drug/Non Drug Allergy documented on EMR Reaction Allergy Type Onset Date Status Mold Unknown Allergy Active Dust Mites Unknown Allergy Active Guaiatussin AC stomach upset Drug Allergy Active Seasonale Unknown Drug Allergy Active phenytoin Dilantin HIVES Drug Allergy Active ciprofloxacin Cipro SEVERE ACID REFLUX Drug Allergy Active diphenhydramine Benadryl Unknown Drug Allergy A ctive sulfamethoxazole / trimethoprim Sulfamethoxazole/ Trimethoprim stomach upset Drug Allergy Active REASON FOR VISIT Epilepsy, Obesity, [...] Date Provider Diagnosis Elian Russell III, MD [address] [place] [address] [address] [facility] [place] [address] 03/02/2024 Elian Russell Acute asthmatic bronchitis J45.909 [...] her to the weight loss program at [facility]. 03/02/2024 Acquired hypothyroidism (ICD-10 - E03.9) [...] the [facility] weight loss program Provider Name:Elian Russell, 06/26/2024 10:00:00 AM, [address] [place] [address] [address], [place], [address], Provider Name:Elian Russell, 01/27/2025 03:00:00 PM, [address] [place] [address] [address], [place], [address], Progress Notes * Bjorn ELAMOB: (73 yo F)Acc No.[id number]:03/02/2024 Patient:?DIEGOTessaTaraan Provider:?Elian Russell MD :1950???Age:73 Y???Sex:Female D ate:03/02/2024 Address[address] [facility] Subjective: * Chief Complaints: * ???EpilepsyObesityHypothyroi dismHyperlipidemia * HPI: ???:?Telehealth?Location of provider rendering services:?{...} [address] [place] [address] ?Location of patient:?address listed in demographics for today's visit ?Patient identification confirmed using:?Name, ?Telehealth method:?Telephone only. Patient not visible to care provider. ?Consent:?Patient verbally consented to treatment, Patient verbally consented to billing insurance company, Patient informed of any privacy concerns related to method of visit ?Total time spent with patient (mins)?15 ?This telehealth visit took place over 15 minutes with the patient at home and me in my office.? She gave consent for billing. The patient, [...] does not cover weight loss drugs. * ROS:?General/Constitutional:?pain?only normal aches and pains.?Denies?Chills,?denies.?Fatigue?admits.?Denies?Fever,?denies.?ENT:?Decreased hearing?denies.?Respiratory:?Cough?denies.?Cardiovascular:?Chest pain with exertion?denies.?Dyspnea on exertion?denies.?Shortness of breath?denies.?Gastrointestinal:?Constipation?denies.?Decreased appetite?denies.?Diarrhea?that is infrequent.?Heartburn?occasional.?Nausea?denies.?Rectal bleeding?denies.?Vomiting?denies.?Hematology:?bruising?denies.?petechiae?denies.?Swollen glands?none have been noted.?Genitourinary:?Frequent urination?denies.?Musculoskeletal:?Muscle aches?denies.?Painful joints?denies.?Sciatica?denies.?Weakness?denies.?Skin:?Itching?denies.?Rash?denies.?Skin lesion(s)?denies.?Neurologic:?Difficulty speaking?denies.?Dizziness?denies.?Headache?denies.?Low back pain?denies.?Psychiatric:?Depressed mood?denies.? * Medical History:? * Surgical History:?Tubal liga tion 1995cholecystectomy 2012tonsillecctomy No history * Hospitalization/Major Diagno stic Procedure:?No history * Family History:?Father: dece ased 64 yrs, diagnosed with CVD, DM, HTN, Hyperlipidemia.?Mother: 88 yrs, diagnosed with DM, HTN, Hyperlipidemia.?Daughter(s): alive.?Siblings: alive.?Maternal aunt: .?3 sister(s) - healthy. 2 daughter(s) - healthy. .? Her father at 64 yrs Dx with COPD,diabetes type 2 ,heart disease ,alcoholism, lung disease (activities concierge). Her mother is alive Dx with type 2 diabetes, HTN, emphysema and heart disease. One sister has MS, another sister has heart problems, another sister has mental health issues, another sister with a blood disorder.Maternal aunt with lung CA.. One sister has had lung cancer resected. * Social History:?Tobacco Use:?Tobacco Use/Smoking?Patient is a?nonsmoker ?Additional Findings: Tobacco Non-User?Aggressive non-smoker ?Tobacco Control (Standard)?Tobacco use:?Nonsmoker ?Additional Findings: Tobacco non-user?Aggressive nonsmoker ???She was born at [facility] in [place], [place]. She has been to Dario for 46 years. They have 2 daughters, Maliha and Selene and 2 healthy grandchildren. She worked until she was 57 and then retired. She has no toxic exposures. 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 * Medications:?TakingTriamcino lone Acetonide 0.1 % Cream 1 application Externally [...] reviewed and reconciled with the patient * Allergies:?Dilantin: HIVESCi pro: SEVERE ACID REFLUXBenadrylGuaiatussin AC: stomach upsetSulfamethoxazole/Trimethoprim: stomach upsetMoldDust MitesSeasonaleno[Allergies Verified] Objective: * Vitals:?Ht: 60, Wt:200, BMI: 39.06, Ht-cm: 152.4, Wt-k.72. Assessment: * Assessment: 1.?Obesity (BMI 30.0-34.9) - E66.9 (Primary)???Notes :Her insurance does not cover weight loss.? At her request we have referred her to the weight loss program at [facility].???2.?Acute asthmatic bronchitis - J45.909???Notes :She has a new viral syndrome as does her she will use a cough suppressant containing dextromethorphan and an expectorant. He will use Tylenol. She will call me if the fever returns.???3.?Acquired hypothyroidism - E03.9???Notes :Comprehensive blood work including thyroid function tests will be done.? No change in her medication today was necessary.???4.?Hyperlipidemia - E78.5???Notes :Her lipids have been stable.? We discussed weight loss healthy diet today at length.??? Plan: * Treatment: 2.?Acute asthmatic bronchiti s? Continue Triamcinolone Acetonide Cream, 0.1 %, 1 application, Externally, Twice a day;?Continue PHENobarbital Tablet, 32.4 MG, 1 tablet, Orally, five times a day;?Continue Multivitamin Adults 50+ Tablet, -, Orally;?Continue Vitamin D Tablet, 1000 UNIT, 1 tablet, Orally, Once a day;?Continue Levothyroxine Sodium Tablet, 125 MCG, TAKE ONE TABLET BY MOUTH EVERY DAY IN THE MORNING ON AN EMPTY STOMACH;?Continue Melatonin Tablet, 3 MG, 1 tablet at bedtime as needed, Orally, Once a day;?Continue predniSONE Tablet, 20 MG, 1 tablet with food or milk, Orally, Once a day; Continue Wegovy Solution Auto-injector, 0.25 MG/0.5ML, 0.5 mL, Subcutaneous, weekly;?Continue Semaglutide Tablet, 3 MG, one tablet, Orally, once a day.?? 3.?Acquired hypothyroidism?LAB: PROFILE, FASTING (COMPREHENSIVE METABOLIC) ?LAB: TSH (THYROID STIMULATING HORMONE) ?LAB: CBC WITH AUTO DIFF ?LAB: Lipid Panel ?LAB: Free T4 (Free Thyroxine) 4.?Hyperlipidemia?LAB: PROFILE, FASTING (COMPREHENSIVE METABOLIC) ?LAB: TSH (THYROID STIMULATING HORMONE) ?LAB: CBC WITH AUTO DIFF ?LAB: Lipid Panel ?LAB: Free T4 (Free Thyroxine) 5.?Others? Continue B12.?? * Procedure Codes:?35006 PHONE E/M BY LAITH 11-20 MIN * Preventive Medicine:? ??Counseling:?Care goal follow-up plan:?Counseling for abnormal BMI given?Yes ?Above Normal BMI Follow-up?Dietary management education, guidance, and counseling, Dietary needs education, Exercise promotion: strength training, Exercise promotion: stretching, Feeding regime, Giving encouragement to exercise, Lifestyle education regarding diet, Nutrition / feeding management, Nutrition therapy, Prescribed activity/exercise education, Prescribed diet education, Prescribed dietary intake, Special diet education, Weight monitoring , Intervention, Order not done: Medical or Other reason not done * Follow Up:?4 Months, 3 or 4 months (Reason: OV, To monitor the patient's progress with the '[facility]' weight loss program) * Images: * Sign off status: Completed true * Provider:?Elian Russell MD Date:?02/07 Generated for Ben bennett/Lorenzo/eTransmitting on:?03/25/2024 09:52 AM EST History and Physical Notes * HPI (History of Present Illness) Category Sub-Category Detail Notes Telehealth Location of [facility] rendering services:: {...} [address] [place] [address] Location of patient:: address listed in demographics [...]
--- OUTSIDE RECORDS SUMMARY | 2024-03-25 09:52 | XMS_ITS ---
Author Organization Elian Russell III, MD Address [address] [place] [address] Care Team Providers Care Store Coordinator Name Role Phone Elian Russell Primary Care Provider [phone] Allergies Allergen (clinical drug ingredient) Drug/Non Drug [...] upset Drug Allergy Active REASON FOR VISIT Viral syndrome [...] Date Provider Diagnosis Elian Russell III, MD [address] [place] [address] [address] [place], [place] [id number] 02/10/2024 Elian Russell Acute asthmatic bronchitis J45.909 [...] Follow Up: 2 Weeks, Reason: Provider Name:Elian Russell, 06/26/2024 10:00:00 AM, [address] [place] [address] [address], [place], [phone], Provider Name:Elian Russell, 01/27/2025 03:00:00 PM, [address] [place] [address] [address], [place], [phone], Progress Notes * TaraFranciscoOB: 2 (73 yo F)Acc No.[id number]:02/10/2024 Patient:?Barbara ELAM Provider:?Elian Russell MD :1950???Age:73 Y???Sex:Female D ate:02/10/2024 Address:[address] [place] [address] [facility] [id number] Subjective: * Chief Complaints: * ???Viral syndrome * HPI: ???:?This telehealth visit took place over 15 minutes with the patient at home and me in my office.? She gave consent for billing.? She reports that she has had a bad cold for the last several days.? He has had a cough which is nonproductive and chills and anorexia.? He has had a sore throat and plugged ears and sinuses.? Her temperature was up to 100 and to decrease several days ago but is now within normal limits.? She denies any recent vertigo.? She is rapidly improving.? She was asked to give me a call in 72 hours to report her status.? We were unable to get her insurance company to reimburse Wegovy.? I have prescribed oral semaglutide aat her request. ?Telehealth?Location of provider rendering services:?{...} [address] [place] [address] ?Location of patient:?address listed in demographics for today's visit ?Patient identification confirmed using:?Name, ?Telehealth method:?Telephone only. Patient not visible to care provider. ?Consent:?Patient verbally consented to treatment, Patient verbally consented to billing insurance company, Patient informed of any privacy concerns related to method of visit ?Total time spent with patient (mins)?15 * ROS:?General/Constitutional:?pain?only normal aches and pains.?Chills?associated with fever.?Fatigue?admits.?Fever?up to 102 degrees.?ENT:?Decreased hearing?denies.?Respiratory:?Cough?non-productive.?Cardiovascular:?Chest pain with exertion?denies.?Dyspnea on exertion?denies.?Shortness of breath?denies.?Gastrointestinal:?Constipation?occasional.?Decreased appetite?denies.?Diarrhea?denies.?Heartburn?denies.?Nausea?denies.?Rectal bleeding?denies.?Vomiting?denies.?Hematology:?bruising?denies.?petechiae?denies.?Swollen glands?none have been noted.?Genitourinary:?Frequent urination?denies.?Musculoskeletal:?Muscle aches?denies.?Painful joints?denies.?Sciatica?denies.?Weakness?denies.?Skin:?Itching?denies.?Rash?denies.?Skin lesion(s)?denies.?Neurologic:?Difficulty speaking?denies.?Dizziness?denies.?Headache?denies.?Low back pain?denies.?Psychiatric:?Depressed mood?denies.? * Medical History:? * Surgical History:?Tubal liga tion 1995cholecystectomy 2012tonsillecctomy No history * Hospitalization/Major Diagno stic Procedure:?No history * Family History:?Father: dece ased 64 yrs, diagnosed with DM, HTN, Hyperlipidemia, CVD.?Mother: 88 yrs, diagnosed with DM, HTN, Hyperlipidemia.?Daughter(s): alive.?Siblings: alive.?Maternal aunt: .?3 sister(s) - healthy. 2 daughter(s) - healthy. .? Her father at 64 yrs Dx with COPD,diabetes type 2 ,heart disease ,alcoholism, lung disease (electrical wirer). Her mother is alive Dx with type [...] Tobacco non-user?Aggressive nonsmoker ???She was born at [facility] in [place], [place]. She has been to Dario for 46 years. They have 2 daughters, Neftali and 2 healthy grandchildren. She worked until she was 57 and then retired. She has no toxic exposures. 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 * Medications:?TakingTriamcino lone Acetonide 0.1 % Cream [...] 39.06, Ht-cm: 152.4, Wt-k.72. 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 She is compliant with her phenobarbital and is up-to-date with her neurology visits.???2.?Acute asthmatic bronchitis - J45.909???Notes :She has a new viral syndrome as does her she will use a cough? suppressant containing dextromethorphan and an expectorant.? He will use Tylenol.? She will call me if the fever returns.???3.?Acquired hypothyroidism - E03.9???Notes :She is compliant with her medication and her levels have been normal. No change in her regimen as needed.???4.?Obesity (BMI 30.0- 34.9) - E66.9???Notes :She has gained 9 pounds. She admits to stress eating. We have discussed alternate ways of reducing stress. She declined an order for Contrave. I have prescribed Wegovy.??? Plan: * Treatment: 2.?Others? Continue B12.?? * Procedure Codes:?64567 PHONE E/M BY PHYS 11-20 MIN * Preventive Medicine:? ??Counseling:?Care goal follow-up plan:?Counseling for abnormal BMI given?Yes ?Above Normal BMI Follow-up?Dietary management education, guidance, and counseling, Dietary needs education * Follow Up:?2 Weeks * Images: * Sign off status: Completed true * Provider:?Elian Russell MD Date:?07/2023 Generated for Ben bennett/Lorenzo/Citlaliitting on:?03/25/2024 09:52 AM EST History and Physical Notes * HPI (History of Present Illness) Category Sub-Category Detail Notes Telehealth Location of [facility] rendering services:: {...} [address] [facility] [address] Location of patient:: address listed in demographics [...]
--- OUTSIDE RECORDS SUMMARY | 2024-03-25 09:53 | XMS_ITS | Patient Health Record ---
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 Role Phone Elian Russell Primary Care Provider [phone] Allergies Allergen (clinical drug ingredient) Drug/Non Drug [...] Sulfamethoxazole/ Trimethoprim stomach upset Drug Allergy Active Results Component Value Reference Range Notes URINE DIP STICK Reviewed date:01/27/2024 03:24:51 PM Interpretation: Performing Lab: Notes/Report: SG 1.005 1.005 - 1.025 pH 6.0 5.0 - 9.0 LUCILA Negative Negative - NIT Negative Negative - PRO 15 Negative - Trace GLU Negative Negative - KET Negative Negative - UBG 0.2 0.1 - 1.8 ROSIE negative 0.2 - 1.3 BLD Negative Negative - MM tomosynthesis screening B I Reviewed date:07/06/2023 07:04:51 PM Interpretation: Performing Lab: Notes/Report: [facility] [address] [place] [address] Mammography Report Signed Patient: Barbara Alas MR#: [id number] 807 : 1950 Acct:[id number] Age/Sex: 72 / F ADM Date: 05/24/23 Loc: [facility] Attending Dr: Elian Russell MD Ordering Physician: Elian Russell MD Results: 1Negativ e Date of Service: 05/24/23 Follow Up: 1 Year From Orig inal Mammogram Procedure(s): MM tomosynthesis screening BI Accession Number(s): [id number] cc: Elian Russell MD EXAMINATION: MM SCREENING DIGITAL BREAST TOMOSYNTHESIS, BILATERAL CLINICAL INFORMATION: Screening. Asymptomatic. COMPARISON: Mammography: This study is compared with prior exams dating back to 2018. TECHNIQUE: Digital breast tomosynthesis is performed in both the craniocaudal and mediolateral oblique views along with computer-aided detection (CAD). Synthesized 2D images are generated from the tomosynthesis. FINDINGS: There are scattered areas of fibroglandular density (ACR BI-RADS breast composition Category b). There are no significant masses, abnormal calcifications, or other abnormalities. MM/MM tomosynthesis screening BI IMPRESSION: No mammographic evidence of malignancy. ASSESSMENT: BI-RADS BI-RADS 1 - Negative RECOMMENDATION: Routine annual mammography screening. 1 year F/U This examination should not preclude the clinical evaluation of a suspicious palpable abnormality. This patient's information was entered into a reminder system with a target due date for their next mammogram. Dictated By: Yu Brunson MD Signed By: <Electronically signed by Yu Brunson MD in OV> 06/18/23 1229 DD/ 1120 TD/TT: Wafer Fab Operator: [place] [facility] [address] [place] [address] Mammography Report Signed Patient: Tara Alas MR#: [id number] 807 : 1950 Acct:[id number] Age/Sex: 72 / F ADM Date: 05/24/23 Loc: SHAW Attending Dr: Elian Russell MD Ordering Physician: Elian Russell MD Results: 1Negativ e Date of Service: 05/24/23 Follow Up: 1 Year From Orig inal Mammogram Procedure(s): MM tomosynthesis screening BI Accession Number(s): [id number] cc: Elian Russell MD EXAMINATION: MM SCREENING DIGITAL BREAST TOMOSYNTHESIS, BILATERAL CLINICAL INFORMATION: Screening. Asymptomatic. COMPARISON: Mammography: This study is compared with prior exams dating back to 2018. TECHNIQUE: Digital breast tomosynthesis is performed in both the craniocaudal and mediolateral oblique views along with computer-aided detection (CAD). Synthesized 2D image s are generated from the tomosynthesis. FINDINGS: There are scattered areas of fibroglandular density (ACR BI-RADS breast composition Category b). There are no significant masses, abnormal calcifications, or other abnormalities. MM/MM tomosynthesis screening BI IMPRESSION: No mammographic evidence of malignancy. ASSESSMENT: BI-RADS BI-RADS 1 - Negative RECOMMENDATION: Routine annual mammography screening. 1 year F/U This examination should not preclude the clinical evaluation of a suspicious palpable abnormality. This patient's information was entered into a reminder system with a target due date for their next mammogram. Dictated By: Yu Brunson MD Signed By: <Electronically signed by Yu Brunson MD in OV> 06/18/23 1229 DD/ 1120 TD/TT: Wafer Fab Operator: MAMMOGRAM DIGITAL BILATERAL SCREEN Reviewed date:01/27/2024 03:10:51 PM Interpretation:undefined Performing Lab: Notes/Report: undefined XR chest 2V Reviewed date:07/13/2023 07:25:08 PM Interpretation: Performing Lab: Notes/Report: [address] [address] XRay Report Signed Patient: Barbara Alas MR#: [id number] 807 : 1950 Acct:[id number] Age/Sex: 73 / F ADM Date: 07/12/23 Loc: HO.JANESSA Attending Dr: Elian Russell MD Ordering Physician: Elian Russell MD Date of Service: 07/12/23 Procedure(s): XR chest 2V Accession Number(s): [id number] cc: Elian Russell MD EXAMINATION: XR CHEST CLINICAL INFORMATION: Pneumonia COMPARISON: Chest x-ray July 26, 2015 TECHNIQUE: 2 views of the chest were obtained. FINDINGS: Lungs are clear. No pulmonary vascular congestion. There is no pleural effusion. The heart size is normal. The cardiac and mediastinal contours are normal. There are multilevel degenerative changes of dorsal spine. Surgical clips right upper quadrant of abdomen XR/XR chest 2V IMPRESSION: Unremarkable examination. Dictated By: Jayjay Javier MD Signed By: <Electronically signed by Jayjay Javier MD in OV> 07/12/23 1600 DD/ 1521 TD/TT: Wafer Fab Operator: CASSIDY [address] [address] XRay Report Signed Patient: Tara Alas MR#: [id number] 807 : 1950 Acct:[id number] Age/Sex: 73 / F ADM Date: 07/12/23 Loc: HO.XRAY Attending Dr: Elian Russell MD Ordering Physician: Elian Russell MD Date of Service: 07/12/23 Procedure(s): XR robin st 2V Accession Number(s): [id number] cc: Elian Russell MD EXAMINATION: XR CHEST CLINICAL INFORMATION: Pneumonia COMPARISON: Chest x-ray July TECHNIQUE: 2 views of the chest were obtained. FINDINGS: Lungs are clear. No pulmonary vascular congestion. There is no pleural effusion. The heart size is normal. The cardiac and mediastinal contours are normal. There are multilevel degenerative changes of dorsal spine. Surgical clips right upper quadrant of abdomen XR/XR chest 2V IMPRESSION: Unremarkable examination. Dictated By: Jayjay Javier MD Signed By: <Electronically signed by Jayjay Javier MD in OV> 07/12/23 1600 DD/ 1521 TD/TT: Wafer Fab Operator: CASSIDY Complete Blood Count Auto Di ff Reviewed date:01/20/2024 07:03:09 AM Interpretation: Performing Lab:[facility], [address] [place] [address] Notes/Report: White Blood Count 6.2 4.8-10.8 X10*3/uL Red Blood Count 5.10 4.20-5.50 X10*6/uL Hemoglobin 14.8 12.0-16.0 g/dl Hematocrit 44.4 37.0-47.0 % Mean Corpuscular Volume 87.1 80.0-98.0 fL Mean Corpuscular Hemoglobin 29.0 27.0-33.0 pg Mean Corpuscular HGB Conc 33.3 31.0-35.0 g/dl Red Cell Distribution Width 13.7 11.0-16.0 % Platelet Count 222 160-400 X10*3/uL Mean Platelet Volume 9.4 9.4-12.3 fL Neutrophils Percent Auto 49.3 45-73 % Imm Gran Pct Auto 0.3 0.0-0.4 % Lymphocytes Percent Auto 38.7 20-40 % Monocytes Percent Auto 8.3 2-11 % Eosinophils Percent Auto 2.8 0-4 % Basophils Percent Auto 0.6 0-2 % NRBC Pct Auto 0.0 0.0-0.2 /100WBC Neutrophils Absolute Auto 3.1 2.0-8.3 x10*3/uL Imm Gran Abs Auto 0.02 0.00-0.03 X10*3/uL Lymphocytes Absolute Auto 2.4 1.2-4.9 X10*3/uL Monocytes Absolute Auto 0.5 0.1-1.2 X10*3/uL Eosinophils Absolute Auto 0.2 0.0-0.4 X10*3/uL Basophils Absolute Auto 0.0 0.0-0.2 X10*3/uL NRBC Abs Auto 0.000 0.0-0.012 X10*3/uL Comprehensive [place]. Panel Fa st Reviewed date:01/20/2024 07:03:09 AM Interpretation: Performing Lab:[facility], [address] [place] [address] Notes/Report: Sodium 142 135-145 mmol/L Potassium 4.4 3.3-5.1 mmol/L Chloride 105 96-108 mmol/L Carbon Dioxide 29 22-29 mmol/L Anion Gap 12 12-20 Blood Urea Nitrogen 14 9-16 mg/dL Creatinine 0.84 0.5-1.4 mg/dL Estimated Glomerular Filt Rate > 60 NOTE: For -[place]aur[place] individuals, multiply the result by 1.210. Chronic Kidney Disease: Estimated GFR < 60 mL/min/1.73m2 Severe Kidney Disease: Estimated GFR < 15 mL/min/1.73m2 Glucose Fasting 108 60-99 mg/dL A fasting glucose from 100-125 mg/dl is considered impaired (pre-diabetes). Calcium 9.2 8.4-10.2 mg/dL Bilirubin Total 0.3 0.0-1.0 mg/dL Aspartate Amino Transferase 16 5-31 U/L Alanine Aminotransferase 17 0-31 U/L Total Protein 7.1 6.5-8.0 g/dL Albumin Level 3.9 3.5-5.0 g/dL Alkaline Phosphatase 107 39-117 U/L Lipid Panel Reviewed date:01/20/2024 07:03:09 AM Interpretation: Performing Lab:[address] [address] Notes/Report: Triglycerides 150 <150 mg/dL Desirable Triglyceride: less than 150 mg/dL Borderline High Triglyceride 150-199 mg/dL High Triglyceride: 200-499 mg/dL Very High Triglyceride: greater than or equal to 5OO mg/dL Cholesterol 229 <200 mg/dL Desirable Cholesterol: less than 200 mg/dL Borderline High Cholesterol: 200-239 mg/dL High Cholesterol: greater than 239 mg/dL LDL Cholesterol Calculated 141 <100 mg/dL Desirable LDL: less than 100 mg/dL Near Optimal/Above Optimal LDL: 110-129 mg/dL Borderline High LDL: 130-159 mg/dL High LDL: 160-189 mg/dL Very High LDL: greater than or equal to 190 mg/dL HDL Cholesterol 58 >40 mg/dL Desirable HDL: greater than 40 mg/dL Note: This HDL assay may give artificially low results in patients with liver disease. Vitamin D 25-OH Total Reviewed date:01/20/2024 07:03:09 AM Interpretation: Performing Lab:[address] [address] Notes/Report: Vitamin D 25-OH Total 48.1 >30 ng/mL Health Based Reference Values* < 20 ng/mL Deficient 20-30 ng/mL Insufficient > 30 ng/mL Sufficient *Mohit COBOS. N Engl J Med. 2007;357:266-280 Care must be taken in interpreting Vitamin D results from different laboratories and methodologies. Published data demonstrated that results from patients undergoing hemodialysis may show a negative bias when tested with various automated 25-OH vitamin D assays when compared to LC-MS/MS. When testing samples from patients whose predominant form of Vitamin D is Vitamin D2, such as patients receiving Vitamin D2 supplementation, results that are subtherapeutic should be confirmed with another method such as LC-MS/MS. Free T4 (Free Thyroxine) Reviewed date:01/20/2024 07:03:09 AM Interpretation: Performing Lab:[facility], [address] [place] [address] Notes/Report: Free T4 (Free Thyroxine) 0.86 0.71-1.85 ng/dL Thyroid Stimulating Hormone Reviewed date:01/20/2024 07:03:09 AM Interpretation: Performing Lab:[facility], [address] [place] [address] Notes/Report: Thyroid Stimulating Hormone 1.96 0.32-4.0 uIU/mL TSH 3rd Generation ([facility]) Reason For Referral No Information Medications Medication SIG (Take, Route, Frequency, Duration) Notes Start Date End Date Status Triamcinolone Acetonide 0.1 % 1 application Externally Twice a day 01/11/2023 Active PHENobarbital 32.4 MG 1 tablet Orally fi ve times a day Active Multivitamin Adults 50+ - Orally Active Vitamin D 1000 UNIT 1 tablet Orally Once a day Active Levothyroxine Sodium 125 MCG TAKE ONE TABLET BY MOUTH EVERY DAY IN THE MORNING ON AN EMPTY STOMACH Active Melatonin 3 MG 1 tablet at bedtime as needed Orally Once a day Active predniSONE 20 MG 1 tablet with food o r milk Orally Once a day 07/19/2023 Active B12 Active Wegovy 0.25 MG/0.5ML 0.5 mL Subcutaneous weekly 01/27/2024 Active Semaglutide 3 MG one tablet Orally on 02/10/2024 Active Immunizations Vaccine Route Administration Date Status Comme nts Influenza no Preserv 3 and > Unknown 01/29/2019 Administered PCV13 Unknown 01/29/2019 Administered Influenza, quad IM Intramuscular 03/01/2020 Administered COVID- 19 Vaccine Unknown 04/09/2021 Administered COVID- 19 Vaccine Unknown 07/13/2020 Administered Influenza no Preserv 3 and > Unknown 01/08/2017 Administered SHINGRIX Unknown 02/04/2021 Administered PCV13 Unknown 01/08/2017 Administered PPV 23 Unknown 01/29/2019 Administered SHINGRIX Unknown 06/07/2021 Administered Influenza, quad IM Intramuscular 01/24/2023 Administered COVID 19 [place] Unknown 07/13/2020 Administered Fluzone High-Dose (HD-IIV3) Unknown 01/08/2017 Administered Fluzone High-Dose (HD-IIV3) Unknown 01/02/2018 Administered Influenza High Dose Quadrivalent Unknown 01/08/2020 Administered Social History Tobacco Use: Social History Observation Description Date Details (start date - stop date) Never Smoker NA - NA Sex Assigned At : Social History Observation Description Sex Assigned At Female Tobacco Use/Smoking Question Answer Notes Patient is a nonsmoker Additional Findings: Tobacco Non-User Aggressive non-smoker Tobacco Control (Standard) Question Answer Notes Tobacco use: Nonsmoker Additional Findings: Tobacco non-user Aggressive nonsmoker AUDIT-C (Standard) Question Answer Notes Did you have a drink containing alcohol in the p ast year? No Points 0 Interpretation Negative Problems Problem Type SNOMED Code ICD Code Onset Dates Problem Status W/U Status Risk Notes Problem Hyperlipidemia (44046334) Hyperlipidemia (E78.5) Active confirmed Her lipids have been stable. We discussed weight loss healthy diet today at length. Problem [id number] Obesity (BMI 30.0-34.9) (E66.9) Active confirmed Her insurance does not cover weight loss. At her request we have referred her to the weight loss program at [facility]. Problem [id number] Acquired hypothyroidism (E03.9) Active confirmed Comprehensive blood work including thyroid function tests will be done. No change in her medication today was necessary. Problem 963048044 Lactose intolerance (E73.9) Active confirmed She will contin ue with the lactase tablets. Problem 868225378 Acute asthmatic bronchitis (J45.909) Active confirmed She has a new viral syndrome as does her she will use a cough suppressant containing dextromethorphan and an expectorant. He will use Tylenol. She will call me if the fever returns. 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 She is compliant with her phenobarbital and is up-to-date with her neurology visits. Problem [id number] Colonoscopy refused (Z53.20) Active confirmed She has refused this in the past and visit again today. Vital Signs Heart Rate 74 /min 01/27/2024 Temperature 98.4 degrees Fahrenheit 01/27/2024 Blood pressure diastolic 79 mm Hg 01/27/2024 Height 60 in 03/02/2024 Blood pressure systolic 139 mm Hg 01/27/2024 Weight 200 lbs 03/02/2024 BMI 39.06 kg/m2 03/02/2024 Encounters Encounter Location Date Provider Diagnosis Elian Russell III, MD [address] [place] [address] [place] [address] 07/12/2023 Elian Westonne Acute asthmatic bronchitis J45.909 ; Partial symptomatic epilepsy with complex partial seizures, intractable, without status epilepticus G40.219 ; Acquired hypothyroidism E03.9 ; Lactose intolerance E73.9 ; Hyperlipidemia E78.5 and Obesity (BMI 30.0-34.9) E66.9 Elian Russell III, MD [address] [place] [address] [place] [address] 07/19/2023 Elian Westonne Acute asthmatic bronchitis J45.909 ; Acquired hypothyroidism E03.9 ; Partial symptomatic epilepsy with complex partial seizures, intractable, without status epilepticus G40.219 ; Lactose intolerance E73.9 and Hyperlipidemia E78.5 Elian Russell III, MD [address] [place] [address] [place] [address] 08/07/2023 Elian Westonne Acute asthmatic bronchitis J45.909 ; Acquired hypothyroidism E03.9 ; Hyperlipidemia E78.5 and Obesity (BMI 30.0-34.9) E66.9 Elian Russell III, MD [address] [place] [address] [place] [address] 01/27/2024 Elian Westonne Acute asthmatic bronchitis J45.909 ; Acquired hypothyroidism E03.9 ; Partial symptomatic epilepsy with complex partial seizures, intractable, without status epilepticus G40.219 ; Lactose intolerance E73.9 ; Colonoscopy refused Z53.20 ; Hyperlipidemia E78.5 and Obesity (BMI 30.0-34.9) E66.9 Elian Russell III, MD [address] [place] [address] [place] [address] 02/10/2024 Elian Davenportrne Acute asthmatic bronchitis J45.909 ; Partial symptomatic epilepsy with complex partial seizures, intractable, without status epilepticus G40.219 ; Acquired hypothyroidism E03.9 and Obesity (BMI 30.0-34.9) E66.9 Elian Russell III, MD [address] [place] [address] [place] [address] 03/02/2024 Elian Russell Acute asthmatic bronchitis J45.909 ; Obesity (BMI 30.0-34.9) E66.9 ; Acquired hypothyroidism E03.9 and Hyperlipidemia E78.5 Elian Russell III, MD [address] [place] [address] [place] [address] 07/03/2023 Elian Russell III, MD [address] [place] [address] [place] [address] 07/03/2023 Elian Russell III, MD [address] [place] [address] [place] [address] 07/03/2023 Elian Russell III, MD [address] [place] [address] [place] [address] 07/31/2023 Elian Russell III, MD [address] [place] [address] [place] [address] 07/31/2023 Elian Russell III, MD [address] [place] [address] [place] [address] 01/30/2024 Elian Russell III, MD [address] [place] [address] [place] [address] 02/07/2024 Elian Russell Assessments Encounter Date Diagnosis (ICD Code) Assessment Notes T reatment Notes Treatment Clinical Notes 07/12/2023 Acute asthmatic bronchitis (ICD-10 - J45.909) I ordered a chest x-ray to see if she has pneumonia. 07/12/2023 Partial symptomatic epilepsy with complex partial seizures, intractable, without status epilepticus (ICD-10 - G40.219) She continues on her current medication with no seizures since her last visit. She is compliant with her phenobarbital and is up-to-date with her neurology visits. 07/19/2023 Acquired hypothyroidism (ICD-10 - E03.9) She is euthyroid at the current time and no change in her medications was necessary today. 07/19/2023 Acute asthmatic bronchitis (ICD-10 - J45.909) She will use her inhalers and take a course of prednisone. 08/07/2023 Acquired hypothyroidism (ICD-10 - E03.9) She is compliant with her medication and her levels have been normal. No change in her regimen as needed. 08/07/2023 Acute asthmatic bronchitis (ICD-10 - J45.909) Her cough has resolved and she has returned to baseline. 01/27/2024 Acquired hypothyroidism (ICD-10 - E03.9) She is compliant with her medication and her levels have been normal. No change in her regimen as needed. 01/27/2024 Acute asthmatic bronchitis (ICD-10 - J45.909) Her cough has resolved and she has returned to baseline. 02/10/2024 Acute asthmatic bronchitis (ICD-10 - J45.909) [...] and is up-to-date with her neurology visits. 03/02/2024 Obesity (BMI 30.0-34.9) (ICD-10 - E66.9) Her insurance does not cover weight loss. At her request we have referred her to the weight loss program at [facility]. 03/02/2024 Acute asthmatic bronchitis (ICD-10 - J45.909) She has a new viral syndrome as does her she will use a cough suppressant containing dextromethorphan and an expectorant. He will use Tylenol. She will call me if the fever returns. 07/12/2023 Acquired hypothyroidism (ICD-10 - E03.9) She is euthyroid at the current time and no change in her medications was necessary today. 07/19/2023 Partial symptomatic epilepsy with complex partial seizures, intractable, without status epilepticus (ICD-10 - G40.219) She continues on her current medication with no seizures since her last visit. She is compliant with her phenobarbital and is up-to-date with her neurology visits. 08/07/2023 Hyperlipidemia (ICD-10 - E78.5) Her lipids are currently stable and no change in her medications as needed. 01/27/2024 Partial symptomatic epilepsy with complex partial seizures, [...] No change in her regimen as needed. 03/02/2024 Acquired hypothyroidism (ICD-10 - E03.9) Comprehensive blood work including thyroid function tests will be done. No change in her medication today was necessary. 07/12/2023 Lactose intolerance (ICD-10 - E73.9) She will continue with the lactase tablets. 07/19/2023 Lactose intolerance (ICD-10 - E73.9) She will continue with the lactase tablets. 08/07/2023 Obesity (BMI 30.0-34.9) (ICD-10 - E66.9) She has gained 1 pound. She admits to stress eating. We have discussed alternate ways of reducing stress. 01/27/2024 Lactose intolerance (ICD-10 - E73.9) She will continue with the lactase tablets. 02/10/2024 Obesity (BMI 30.0-34.9) (ICD-10 - E66.9) She has gained 9 pounds. She admits to stress eating. We have discussed alternate ways of reducing stress. She declined an order for Contrave. I have prescribed Wegovy. 03/02/2024 Hyperlipidemia (ICD-10 - E78.5) Her lipids have been stable. We discussed weight loss healthy diet today at length. 07/12/2023 Hyperlipidemia (ICD-10 - E78.5) Her lipids are well controlled. No change in her regimen was made. I recommended aggressive weight loss through diet restricted in fat calories and sodium combined with a regular physical activity. 07/19/2023 Hyperlipidemia (ICD-10 - E78.5) Her lipids are well controlled. No change in her regimen was made. I recommended aggressive weight loss through diet restricted in fat calories and sodium combined with a regular physical activity. 01/27/2024 Colonoscopy refused (ICD-10 - Z53.20) She has refused this in the past and visit again today. 07/12/2023 Obesity (BMI 30.0-34.9) (ICD-10 - E66.9) We have begun to discuss aggressive weight reduction. 01/27/2024 Hyperlipidemia (ICD-10 - E78.5) Her lipids are currently stable and no change in her medications as needed. 01/27/2024 Obesity (BMI 30.0-34.9) (ICD-10 - E66.9) She has gained 9 pounds. She admits to stress eating. We have discussed alternate ways of reducing stress. She declined an order for Contrave. I have prescribed Wegovy. Plan Of Treatment Pending Test Test Name Order Date PROFILE, FASTING (COMPREHENSIVE METABOLI C) 08/07/2023 PROFILE, FASTING (COMPREHENSIVE METABOLI C) 01/23/2023 PROFILE, FASTING (COMPREHENSIVE METABOLI C) 03/02/2024 TSH (THYROID STIMULATING HORMONE) 2023 TSH (THYROID STIMULATING HORMONE) 2022 TSH (THYROID STIMULATING HORMONE) 2023 VITAMIN D 25-OH TOTAL 08/07/2023 CBC WITH AUTO DIFF 01/23/2023 CBC WITH AUTO DIFF 03/02/2024 CBC WITH AUTO DIFF 08/07/2023 Lipid Panel 03/02/2024 Lipid Panel 08/07/2023 Lipid Panel 01/23/2023 Free T4 (Free Thyroxine) 01/23/2023 Free T4 (Free Thyroxine) 03/02/2024 Free T4 (Free Thyroxine) 08/07/2023 Next Appt Details Provider Name:Elian Russell, 06/26/2024 10:00:00 AM, [address] [place] [address] [address], [place], [address], Provider Name:Elian Russell, 01/27/2025 03:00:00 PM, [address] [place] [address] [address], [place], [address], Insurance Providers Payer Name Payer Address Payer Phone Subscriber Number Group Number Insured Name Patient Relationship to Insured Coverage Start Date Coverage End Date [facility] [address] [place], [place] [id number] Barbara Elam Self - patient is the insured MEDICARE NGS [address] [place] [phone] [id number] Barbara Elam Self - patient is the insured Medical (General) History Medical History History ICD Code Hypothyroidism, unspecified type E03.9 Lactose intolerance E73.9 Obesity without serious janeth rbidity, unspecified classification, unspecified obesity type E66.9 Nodule of flexor tendon sheath M67.90 Depression, unspecified depression type F32.9 partial complex seizure disorder The patient has a history of allergies, headaches, positional vertigo, fatigue, and obesity. She is currently being treated for obesity. Her thyroid levels are normal. She is currently taking thyroid medication, Phenobarb, vitamin D, Levothyrox, Uri Jagger, and melatonin. She has started taking Omeprazole in the morning again. Surgical History Surgery Date(Month/Year) Tubal ligation 1994 cholecystectomy 2011 tonsillecctomy No history Hospitalization History Reason Date(Month/Year) No history
--- NOTE | 2024-03-25 09:55 | A.OFFVIS_ITS ---
Vital Signs 03/25/24 09:57 Height 5 ft Weight 198 lb 13.711 oz BMI 38.8 BP 112/70 Blood Pressure Location Rt brachial Position Sitting Pulse 76 Pulse Source Pulse Oximeter Intake Visit Reasons: f/u hypothyroidism Intake Note: Patient present today for Hypothyroidism follow up visit. Manager Provider Relations Required: No Accompanied by: Self / Same As Patient Allergies divalproex sodium [From DEPAKOTE] Allergy (Unknown, Verified 03/25/24 09:58) UNKNOWN phenytoin [Dilantin] Allergy (Unknown, Verified 03/25/24 09:58) hives From DILANTIN Allergy (Mild, Uncoded 03/25/24 09:58) HIVES Benadryl Adverse Reaction (Unknown, Uncoded 03/25/24 09:58) rapid heart beat Medication List - Last Reconciled 03/25/24 by Elian Chavis MD cholecalciferol (vitamin D3) 50 mcg PO DAILY cyanocobalamin (vitamin B-12) (Vitamin B-12) 50 mcg PO .every other day dtvssyru-olb-qtubx-lkt682-thdz 500-500-66.7 mg (Tziallvgzqx-Hjbcdkiwpvq-ANT (with antiox)) tabs PO Levoxyl (levothyroxine) 125 mcg PO DAILY NS multivitamin 1 tab PO DAILY phenobarbital 0 mg PO HPI Comments Details: This is a 73-year-old white female previously seen by myself here at [facility] for management of hypothyroidism. Patient is currently on Levoxyl 125 mcg q.d.. She denies any symptoms of hypothyroidism hyperthyroidism [facility] Medical History Weight gain Seizure Hypothyroidism Surgical History History of cholecystectomy History of tonsillectomy and adenoidectomy H/O tubal ligation Family History Father HTN (hypertension) Diabetes Mother HTN (hypertension) Diabetes Hyperlipemia Social History Household Members: Spouse Housing: House Alcohol intake: never Patient Tobacco Use Status: Never used Tobacco Current occupational status: retired Sexual orientation: Straight/Heterosexual Gender identity: Female Female Reproductive History Menstrual Age of Menarche: 13 Physical Exam Vital Signs: Last Vital Signs Pulse 76 03/25/24 09:57 BP 112/70 03/25/24 09:57 BMI result Body Mass Index 38.8 Const Other: Thyroid gland is normal size weighs about 15 g . There are no thyroid nodules palpated. Reflexes 2+ DTR Assessment & Plan Assessment & Plan (1) Hypothyroidism: Code(s): E03.9 - Hypothyroidism, unspecified Category: Medical Plan: This 72-year-old white female with a history of hypothyroidism be replaced on 125 mcg of Levoxyl She appears to be clinically and biochemically euthyroid Plan is to continue current management Coding Level of Care Code Est Pt Level 3 (22899) Diagnoses Hypothyroidism E03.9
[2024-03-25 09:57] VITALS: BP 112/70; PULSE 76; BMI 38.8
== END 2024-03-25 10:14 | disposition home or self-care (01) ==
PROVIDERS: PCP Internal Medicine Medical Oncology; Visit Provider Internal Medicine Endocrinology, Diabetes & Metabolism
DX: E03.9 Hypothyroidism, unspecified (principal)
CPT/HCPCS: 99213

== ENCOUNTER → 2024-03-25 09:49 | Outpatient (BNVA) | payer MEDICARE, SELFPAY | PROVIDERS: PCP Internal Medicine Medical Oncology; Visit Provider Internal Medicine Endocrinology, Diabetes & Metabolism | DX: E03.9 Hypothyroidism, unspecified (principal) | CPT/HCPCS: 99212 ==

== ENCOUNTER 2024-06-22 07:41 | Outpatient (REF) | payer MEDICARE, SELFPAY ==
[2024-06-22 10:27] LABS: MANUAL DIFF FLAG NO
[2024-06-22 10:32] LABS: Basophils Percent Auto 0.6 % (0-2); Eosinophils Absolute Auto 0.2 X10*3/uL (0.0-0.4); Eosinophils Percent Auto 2.9 % (0-4); Hematocrit 46.2 % (37.0-47.0); Imm Gran Abs Auto 0.03 X10*3/uL (0.00-0.03); Imm Gran Pct Auto 0.4 % (0.0-0.4); Lymphocytes Absolute Auto 2.4 X10*3/uL (1.2-4.9); Lymphocytes Percent Auto 33.7 % (20-40); Mean Corpuscular HGB Conc 32.5 g/dl (31.0-35.0); Mean Corpuscular Hemoglobin 28.3 pg (27.0-33.0); Mean Corpuscular Volume 87.2 fL (80.0-98.0); Mean Platelet Volume 9.5 fL (9.4-12.3); Monocytes Absolute Auto 0.6 X10*3/uL (0.1-1.2); Monocytes Percent Auto 8.2 % (2-11); Neutrophils Absolute Auto 3.9 x10*3/uL (2.0-8.3); Neutrophils Percent Auto 54.2 % (45-73); Platelet Count 230 X10*3/uL (160-400); Red Cell Distribution Width 13.4 % (11.0-16.0); White Blood Count 7.2 X10*3/uL (4.8-10.8)
[2024-06-22 12:15] LABS: Alanine Aminotransferase 17 U/L (0-31); Albumin Level 3.9 g/dL (3.5-5.0); Alkaline Phosphatase 102 U/L (39-117); Anion Gap 13 (12-20); Aspartate Amino Transferase 19 U/L (5-31); Bilirubin Total 0.3 mg/dL (0.0-1.0); Blood Urea Nitrogen 14 mg/dL (9-16); Calcium 8.9 mg/dL (8.4-10.2); Carbon Dioxide 26 mmol/L (22-29); Chloride 107 mmol/L (96-108); Cholesterol 204 mg/dL (<200); Estimated Glomerular Filt Rate > 60; Free T4 (Free Thyroxine) 1.05 ng/dL (0.71-1.85); Glucose Fasting 102 mg/dL (60-99); HDL Cholesterol 59 mg/dL (>40); LDL Cholesterol Calculated 113 mg/dL (<100); Potassium 4.2 mmol/L (3.3-5.1); Sodium 142 mmol/L (135-145); Thyroid Stimulating Hormone 0.57 uIU/mL (0.32-4.0); Total Protein 7.5 g/dL (6.5-8.0); Triglycerides 163 mg/dL (<150)
== END 2024-06-22 07:42 | disposition home or self-care (01) ==
LOC: HO.10HDL 07:41
PROVIDERS: Visit Provider Internal Medicine Medical Oncology
DX: E03.9 Hypothyroidism, unspecified (principal); E78.5 Hyperlipidemia, unspecified; E66.9 Obesity, unspecified
CPT/HCPCS: 36415; 80053; 80061; 84439; 84443; 85025

== ENCOUNTER 2024-08-05 09:01 | Outpatient (REF) | payer MEDICARE, SELFPAY ==
--- NOTE | ~2024-08-05 | US_ITS ---
EXAMINATION: US ABDOMEN HISTORY: Upper quadrant pain TECHNIQUE: Real-time grayscale ultrasound imaging of the abdomen was performed and images were reviewed. COMPARISON: There are no prior studies for comparison. FINDINGS: Liver: The liver is normal in size. The liver demonstrates increased echotexture, consistent with steatosis. There is a 9 mm echogenic lesion in the right lobe. No intrahepatic biliary ductal dilatation is identified. There is normal hepatopedal flow in the portal vein. Gallbladder and biliary tree: The gallbladder is surgically absent. The common bile duct is normal in caliber measuring 4 mm. Kidneys: The right kidney measures 8.8 cm in length. The left kidney measures 10.4 cm in length. The kidneys are unremarkable, without evidence of masses, hydronephrosis, or calculi. Pancreas: The pancreatic head, neck, and body are unremarkable. The pancreatic tail is obscured by bowel gas. Spleen: The spleen is normal in size and contour, measuring 8.2 cm in length. Abdominal aorta and inferior vena cava: The visualized portions of the abdominal aorta and inferior vena cava are normal in caliber. There is no free fluid in the abdomen. US/US abdomen complete IMPRESSION: Hepatic steatosis. 9 mm echogenic lesion in the right lobe which may represent a hemangioma. Follow-up is suggested. Electronically signed by: Elian Barrera MD 08/05/2024 05:22 PM EDT
== END 2024-08-05 09:02 | disposition home or self-care (01) ==
LOC: HO.US 09:01
PROVIDERS: PCP Internal Medicine Medical Oncology; Visit Provider Internal Medicine Medical Oncology
DX: R10.11 Right upper quadrant pain (principal)
CPT/HCPCS: 76700

== ENCOUNTER → 2024-08-05 09:14 | Outpatient (BNV) | payer MEDICARE, SELFPAY | PROVIDERS: PCP Internal Medicine Medical Oncology; Visit Provider Radiology Diagnostic Radiology | DX: K76.0 Fatty (change of) liver, not elsewhere classified (principal); K76.89 Other specified diseases of liver | CPT/HCPCS: 76700 ==

== ENCOUNTER 2025-03-25 15:21 | Outpatient (REF) | payer MEDICARE, SELFPAY ==
--- OUTSIDE RECORDS SUMMARY | 2024-01-30 08:57 | XMS_ITS ---
Author Organization Elian Russell III, MD Address [address] [address] Care Team Providers Care Senior Industrial Engineer Name Role Phone Dr. Elian Russell III Primary Care Provider [phone] REASON FOR VISIT FYI only Social History Sex Assigned At : Social History Observation Description Sex Assigned At Female Encounters Encounter Location Date Provider Diagnosis Elian Russell III, MD [address] [place] [address] [place] [address] 01/30/2024 Elian Russell Plan Of Treatment Next Appt Details Provider Name:Elian Russell , 08/17/2025 09:30:00 AM, [address] [place] [address] [place], [address], Provider Name:Elian Russell , 02/01/2026 09:30:00 AM, [address] [place] [address] [place], [address], Progress Notes * Bjorn ALASOB:1950 (73 yo F)Acc No.[id number]:01/30/2024 Patient: Barbara TANG :1950 A ge:73 Y S ex:Female Address:[address] [place], [address] * true * Date: Generated for Printi ng/Faxing/eTransmitting on: 05/26/2024 07:20 PM EST
--- OUTSIDE RECORDS SUMMARY | 2024-02-07 08:33 | XMS_ITS ---
Author Organization Elian Russell III, MD Address [address] [place] [address] Care Team Providers Care Lathe Operator Contact Lens Name Role Phone Dr. Elian Russell III Primary Care Provider [phone] REASON FOR VISIT Chest Cold-Message Only Social History Sex Assigned At : Social History Observation Description Sex Assigned At Female Encounters Encounter Location Date Provider Diagnosis Elian Russell III, MD [address] [place] [address] [place] [address] 02/07/2024 Elian Russell Plan Of Treatment Next Appt Details Provider Name:Elian Russell , 08/17/2025 09:30:00 AM, [address] [place] [address] [place], [address], Provider Name:Elian Russell , 02/01/2026 09:30:00 AM, [address] [place] [address] [place], [address], Progress Notes * Bjorn ALASOB:1950 (73 yo F)Acc No.[id number]:02/07/2024 Patient: Barbara TANG :1950 A ge:73 Y S ex:Female Address:[address] [place], [address] * true * Date: Generated for Printi ng/Faxing/eTransmitting on: 05/26/2024 07:19 PM EST
--- OUTSIDE RECORDS SUMMARY | 2024-02-10 04:15 | XMS_ITS ---
Author Organization Elian Russell III, MD Address [address] [place] [address] Care Team Providers Care Food And Beverage Associate Name Role Phone Dr. Elian Russell III Primary Care Provider [phone] Allergies Allergen (clinical drug ingredient) Drug/Non Drug [...] Date Provider Diagnosis Elian Russell III, MD [address] [place] [address] [place] [address] 02/10/2024 Elian Russell Acute asthmatic bronchitis J45.909 [...] Provider Name:Elian Russell , 08/17/2025 09:30:00 AM, [address] [place] [address] [address], [place], [address], Provider Name:Elian Russell , 02/01/2026 09:30:00 AM, [address] [place] [address] [address], [place], [address], Progress Notes * Bjorn BELLOB: 2 (73 yo F)Acc No.[id number]:02/10/2024 Patient: Barbara GARCIA Provider: Ericka Russell MD :1950 A ge:73 Y S ex:Female Date:02/10/2024 Address:[address] [place] [address] JACQUELINESudarshan [facility]-[id number] Subjective: * Chief Complaints: * V iral [...] of provider rendering services: { ...} [address] [facility] [address] L ocation of patient: bert santiago listed [...] type 2 ,heart disease ,alcoholism, lung disease (gold stamper). Her mother is alive Dx with type [...] ggressive nonsmoker S he was born at [facility] in [place], [place]. She has been to Dario for 46 years. They have 2 daughters, Maliha and Selene and 2 healthy grandchildren. She worked until she was 57 and then retired. She has no toxic exposures. 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 * Medications: T akingTriamcinolone [...] Date: 04/11/2023 Generated for Ben bennett/Lorenzo/Dulce on: 05/26/2024 07:20 PM EST History and Physical Notes * HPI (History of Present Illness) Category Sub-Category Detail Notes Telehealth Location of [facility] rendering services:: {...} [address] [place] [address] Drive [address] [place] [address] Location of patient:: address listed in demographics [...]
--- OUTSIDE RECORDS SUMMARY | 2024-03-02 11:30 | XMS_ITS ---
Author Organization Elian Russell III, MD Address [address] [place] [address] Care Team Providers Care Occupational Health Physiotherapist Name Role Phone Dr. Elian Russell III [...] Date Provider Diagnosis Elian Russell III, MD [address] [place] [address] [place] [address] 03/02/2024 Elian Russell Acute asthmatic bronchitis J45.909 [...] her to the weight loss program at [facility]. 03/02/2024 Acquired hypothyroidism (ICD-10 - E03.9) Comprehensive [...] Provider Name:Elian Russell , 08/17/2025 09:30:00 AM, [address] [place] [address] [address], [place], [address], Provider Name:Elian Russell , 02/01/2026 09:30:00 AM, [address] [place] [address] [address], [place], [address], Progress Notes * Tara BELLFranciscoOB: 2 (73 yo F)Acc No.[id number]:03/02/2024 Patient: Barbara GARCIA Provider: Ericka Russell MD :1950 A ge:73 Y S ex:Female Date:03/02/2024 Address: [address] [id number] Subjective: * Chief Complaints: * E pilepsyObesityHypothyroidismHyperlipidemia * HPI: * : Telehealth L ocation of provider rendering services: { ...} [address] [place] [address] [address] [place] [address] L ocation of patient: bert robyness listed [...] type 2 ,heart disease ,alcoholism, 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 Her mother is alive Dx with type [...] ggressive nonsmoker S he was born at [facility] in [place], [place]. She has been to Dario for 46 years. They have 2 daughters, Maliha and Selene and 2 healthy grandchildren. She worked until she was 57 and then retired. She has no toxic exposures. 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 * Medications: T akingTriamcinolone Acetonide [...] her to the weight loss program at [facility]. 2 . A cute asthmatic bronchitis - [...] Date: 05/02/2023 Generated for Ben bennett/Lorenzo/Dulce on: 05/26/2024 07:20 PM EST History and Physical Notes * HPI (History of Present Illness) Category Sub-Category Detail Notes Telehealth Location of [facility] ider rendering services:: {...} [address] [facility] [address] Location of patient:: address listed in demographics [...]
--- OUTSIDE RECORDS SUMMARY | 2024-06-26 05:00 | XMS_ITS ---
Author Organization Elian Russell III, MD Address [address] [place] [place] [address] Care Team Providers Care Air Conditioning Engineer Name Role Phone Dr. Elian Russell [...] Mold Unknown Allergy Active REASON FOR VISIT Oral semaglutide weight loss program, Partial epilepsy, Hypo-thyroid, Lactose intolerance, hyperlipidemia, Obesity Medications Medication SIG (Take, Route, Frequency, Duration) Notes Start Date End Date Status Triamcinolone Acetonide 0.1 % 1 application Externally Twice a day 01/11/2023 Active Biotin Active Multivitamin Adults 50+ - Orally Active PHENobarbital 32.4 MG 1 tablet Orally fi ve times a day Active Semaglutide 3 MG one tablet Orally on a day 02/10/2024 Active Wegovy 0.25 MG/0.5ML 0.5 mL Subcutaneous weekly 01/27/2024 Active B12 Active predniSONE 20 MG 1 tablet with food o r milk Orally Once a day 07/19/2023 Active Melatonin 3 MG 1 tablet at bedtime as needed Orally Once a day Active Levothyroxine Sodium 125 MCG TAKE ONE TABLET BY MOUTH EVERY DAY IN THE MORNING ON AN EMPTY STOMACH Active Vitamin D 1000 UNIT 1 tablet Orally Once a day Active Social History Tobacco Use: Social History Observation Description Date Details (start date - stop date) Never Smoker NA - NA Sex Assigned At : Social History Observation Description Sex Assigned At Female Tobacco Control (Standard) Question Answer Notes Tobacco use: Nonsmoker Additional Findings: Tobacco non-user Aggressive nonsmoker Problems Problem Type SNOMED Code ICD Code Onset Dates Problem Status W/U Status Risk Notes Problem Right upper quadrant pain (798289418) Right upper quadrant abdominal pain (R10.11) Active confirmed The pain has resolved for today. She declined further imaging of any kind.She did agree to have an ultrasound of the abdomen 6 months from today. This was scheduled. Vital Signs Temperature 98.0 degrees Fahrenheit 06/27/19 25 Blood pressure systolic 136 mm Hg 06/27/19 25 Blood pressure diastolic 77 mm Hg 025 Heart Rate 70 /min 06/26/2024 Height 60 in 06/26/2024 Weight 204 lbs 06/26/2024 BMI 39.84 kg/m2 06/26/2024 Encounters Encounter Location Date Provider Diagnosis Elian Russell III, MD [address] [place] [address] [place] [address] 06/26/2024 Elian Russell Acute asthmatic bronchitis J45.909 ; Right upper quadrant abdominal pain R10.11 ; Lactose intolerance E73.9 ; Acquired hypothyroidism E03.9 ; Partial symptomatic epilepsy with complex partial seizures, intractable, without status epilepticus G40.219 and Hyperlipidemia E78.5 Assessments Encounter Date Diagnosis (ICD Code) Assessment Notes T reatment Notes Treatment Clinical Notes 06/26/2024 Acute asthmatic bronchitis (ICD-10 - J45.909) She has a new viral syndrome as does her she will use a cough suppressant containing dextromethorphan and an expectorant. He will use Tylenol. She will call me if the fever returns. 06/26/2024 Right upper quadrant abdominal pain (ICD-10 - R10.11) This is a chronic problem lasting for years. The cause is unclear. She has gained 4 pounds since her last visit. We discussed various lifestyle modification she could make to try and reduce postprandial discomfort 06/26/2024 Lactose intolerance (ICD-10 - E73.9) She will continue with the lactase tablets. 06/26/2024 Acquired hypothyroidism (ICD-10 - E03.9) Comprehensive blood work including thyroid function tests will be done. No change in her medication today was necessary. 06/26/2024 Partial symptomatic epilepsy with complex partial seizures, intractable, without status epilepticus (ICD-10 - G40.219) She continues on her current medication with no seizures since her last visit. She is compliant with her phenobarbital and is up-to-date with her neurology visits. 06/26/2024 Hyperlipidemia (ICD-10 - E78.5) Her lipids have been stable. The triglycerides are elevated.We discussed weight loss healthy diet today at length. Plan Of Treatment Medication Medication Name Sig Start Date Stop Date Notes Triamcinolone Acetonide 0.1 % 1 applicat ion Externally Twice a day 01/11/2023 Biotin Multivitamin Adults 50+ - Orally PHENobarbital 32.4 MG 1 tablet Orally fi ve times a day Semaglutide 3 MG one tablet Orally once a day 02/10/2024 Wegovy 0.25 MG/0.5ML 0.5 mL Subcutaneous weekly 01/27/2024 B12 predniSONE 20 MG 1 tablet with food o r milk Orally Once a day 07/19/2023 Melatonin 3 MG 1 tablet at bedtime as needed Orally Once a day Levothyroxine Sodium 125 MCG TAKE ONE TA BLET BY MOUTH EVERY DAY IN THE MORNING ON AN EMPTY STOMACH Vitamin D 1000 UNIT 1 tablet Orally Once a day Pending Test Test Name Order Date [facility] 06/26/2024 Next Appt Details Follow Up: 6 Weeks, Reason: ov Provider Name:Elian Russell , 08/17/2025 09:30:00 AM, [address] [place] [address] [address], [place], [address], Provider Name:Elian Russell , 02/01/2026 09:30:00 AM, [address] [place] [address] [place], [address], Progress Notes * Tara CORTEZFranciscoOB:1950 (73 yo F)Acc No.[id number]:06/26/2024 Progress Notes Patient: Barbara TANG Provider: Ericka Russell MD :1950 A ge:73 Y S ex:Female Date:06/26/2024 Address:[address], [id number] Subjective: * Chief Complaints: * O ral semaglutide weight loss programPartial epilepsyHypo-thyroidLactose intoleranceHyperlipidemiaObesity * HPI: C OVID-19 Screening: She complains of a right upper quadrant abdominal pain after meals. She says she has had this discomfort for many many years. On October 13, 2010 she had a laparoscopic cholecystectomy. She has had no nausea or vomiting. Her weight is stable. Her examination was unremarkable.She continues on the oral semaglutide or weight loss.She has had no seizures. She is compliant with all of her medications. She is avoiding lactose. Questions H ave you had any new onset fever, chills, cough, congestion, sore throat, shortness of breath, muscle aches? N o * ROS: G eneral/Constitutional: pain C hronic right upper quadrant abdominal discomfort after eating, otherwise only normal aches and pains. C hills d enies. F atigue a dmits.?Fever d enies. E NT: Decreased hearing d enies. R espiratory: Cough d enies. C ardiovascular: Chest pain with exertion d enies. D yspnea on exertion?denies. S hortness of breath d enies. G astrointestinal: Constipation o ccasional. D ecreased appetite d enies. D iarrhea d enies. H eartburn o ccasional. N ausea d enies. R ectal bleeding d enies. V omiting d enies. H ematology: bruising d enies. p etechiae d enies. S wollen glands n one have been noted. G enitourinary: Frequent urination a t night. M usculoskeletal: Muscle aches d enies. P [...] * Surgical History: T ubal ligation 1994cholecystectomy 2011tonsillecctomy * Hospitalization/Major Diagno stic Procedure: N o history * Family History: F ather: 64 yrs, diagnosed with CVD, DM, HTN, Hyperlipidemia. M other: 88 yrs, diagnosed with DM, HTN, Hyperlipidemia. D aughter(s): alive. S iblings: alive. M aternal aunt: . 3 sister(s) - healthy. 2 daughter(s) - healthy. . Her father at 64 yrs Dx with COPD,diabetes type 2 ,heart disease ,alcoholism, lung disease (lead ruby on rails developer). Her mother is alive Dx with type 2 diabetes, HTN, emphysema and heart disease. One sister has MS, another sister has heart problems, another sister has mental health issues, another sister with a blood disorder.Maternal aunt with lung CA.. One sister has had lung cancer resected. * Social History: T obacco Use: T obacco Control (Standard) T obacco use: N onsmoker A dditional Findings: Tobacco non-user A ggressive nonsmoker S he was born at [facility] in [place], [place]. She has been to Dario for 46 years. They have 2 daughters, Maliha and Selene and 2 healthy grandchildren. She worked until she was 57 and then retired. She has no toxic exposures. 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 * Medications: T akingBiotin PHENobarbital 32.4 MG Tablet 1 tablet Orally five times a day Multivitamin Adults 50+ - Tablet Orally Vitamin D 1000 UNIT Tablet 1 tablet Orally Once a day Levothyroxine Sodium 125 MCG Tablet TAKE ONE TABLET BY MOUTH EVERY DAY IN THE MORNING ON AN EMPTY STOMACH Melatonin 3 MG Tablet 1 tablet at bedtime as needed Orally Once a day B12 Taking Biotin Taking PHENobarbital 32.4 MG Tablet 1 tablet [...] as needed Orally Once a day Taking B12 DiscontinuedTriamcinolone Acetonide 0.1 % Cream 1 application Externally Twice a day predniSONE 20 MG Tablet 1 tablet with food or milk Orally Once a day Wegovy 0.25 MG/0.5ML Solution Auto-injector 0.5 mL Subcutaneous weekly Semaglutide 3 MG Tablet one tablet Orally once a day Medication List reviewed and reconciled with the patientDiscontinued Triamcinolone Acetonide 0.1 % Cream 1 application Externally Twice a day Discontinued predniSONE 20 MG Tablet 1 tablet with food or milk Orally Once a day Discontinued Wegovy 0.25 MG/0.5ML Solution Auto-injector 0.5 mL Subcutaneous weekly Discontinued Semaglutide 3 MG Tablet one tablet Orally once a day Medication List reviewed and reconciled with the patient * Allergies: D ilantin: HIVESCipro: SEVERE ACID REFLUXBenadrylGuaiatussin AC: stomach upsetSulfamethoxazole/Trimethoprim: stomach upsetMoldDust MitesSeasonaleno[Allergies Verified] Objective: * Vitals: H t: 60, Wt:204, BMI:39.84, BP:136/77, HR:70, Temp:98.0, Ht-cm: 152.4, Wt-k.53. * P ast Orders: Lab:Complete Blood Count Aut o Diff * Collection Date 06/22/2024 01/18/2024 12/25/2022 Collection Time 07:46 AM 07:55 AM 06:43 AM Order Date 06/22/2024 01/18/2024 12/25/2022 White Blood Count 7.2 (Ref Range: 4.8-10.8 X10*3/uL) 6.2 (Ref Range: 4.8-10.8 X10*3/uL) 7.2 (Ref Range: 4.8-10.8 X10*3/uL) Red Blood Count 5.30 (Ref Range: 4.20-5.50 X10*6/uL) 5.10 (Ref Range: 4.20-5.50 X10*6/uL) 4.94 (Ref Range: 4.20-5.50 X10*6/uL) Hemoglobin 15.0 (Ref Range: 12.0-16.0 g/dl) 14.8 (Ref Range: 12.0-16.0 g/dl) 14.1 (Ref Range: 12.0-16.0 g/dl) Hematocrit 46.2 (Ref Range: 37.0-47.0 %) 44.4 (Ref Range: 37.0-47.0 %) 43.5 (Ref Range: 37.0-47.0 %) Mean Corpuscular Volume 87.2 (Ref Range: 80.0-98.0 fL) 87.1 (Ref Range: 80.0-98.0 fL) 88.1 (Ref Range: 80.0-98.0 fL) Mean Corpuscular Hemoglobin 28.3 (Ref Range: 27.0-33.0 pg) 29.0 (Ref Range: 27.0-33.0 pg) 28.5 (Ref Range: 27.0-33.0 pg) Mean Corpuscular HGB Conc 32.5 (Ref Range: 31.0-35.0 g/dl) 33.3 (Ref Range: 31.0-35.0 g/dl) 32.4 (Ref Range: 31.0-35.0 g/dl) Red Cell Distribution Width 13.4 (Ref Range: 11.0-16.0 %) 13.7 (Ref Range: 11.0-16.0 %) 13.5 (Ref Range: 11.0-16.0 %) Platelet Count 230 (Ref Range: 160-400 X10*3/uL) 222 (Ref Range: 160-400 X10*3/uL) 218 (Ref Range: 160-400 X10*3/uL) Mean Platelet Volume 9.5 (Ref Range: 9.4-12.3 fL) 9.4 (Ref Range: 9.4-12.3 fL) 9.6 (Ref Range: 9.4-12.3 fL) Neutrophils Percent Auto 54.2 (Ref Range: 45-73 %) 49.3 (Ref Range: 45-73 %) 38.9 L (Ref Range: 45-73 %) Imm Gran Pct Auto 0.4 (Ref Range: 0.0-0.4 %) 0.3 (Ref Range: 0.0-0.4 %) 0.1 (Ref Range: 0.0-0.4 %) Lymphocytes Percent Auto 33.7 (Ref Range: 20-40 %) 38.7 (Ref Range: 20-40 %) 48.8 H (Ref Range: 20-40 %) Monocytes Percent Auto 8.2 (Ref Range: 2-11 %) 8.3 (Ref Range: 2-11 %) 8.3 (Ref Range: 2-11 %) Eosinophils Percent Auto 2.9 (Ref Range: 0-4 %) 2.8 (Ref Range: 0-4 %) 3.3 (Ref Range: 0-4 %) Basophils Percent Auto 0.6 (Ref Range: 0-2 %) 0.6 (Ref Range: 0-2 %) 0.6 (Ref Range: 0-2 %) NRBC Pct Auto 0.0 (Ref Range: 0.0-0.2 /100WBC) 0.0 (Ref Range: 0.0-0.2 /100WBC) 0.0 (Ref Range: 0.0-0.2 /100WBC) Neutrophils Absolute Auto 3.9 (Ref Range: 2.0-8.3 x10*3/uL) 3.1 (Ref Range: 2.0-8.3 x10*3/uL) 2.8 (Ref Range: 2.0-8.3 x10*3/uL) Imm Gran Abs Auto 0.03 (Ref Range: 0.00-0.03 X10*3/uL) 0.02 (Ref Range: 0.00-0.03 X10*3/uL) 0.01 (Ref Range: 0.00-0.03 X10*3/uL) Lymphocytes Absolute Auto 2.4 (Ref Range: 1.2-4.9 X10*3/uL) 2.4 (Ref Range: 1.2-4.9 X10*3/uL) 3.5 (Ref Range: 1.2-4.9 X10*3/uL) Monocytes Absolute Auto 0.6 (Ref Range: 0.1-1.2 X10*3/uL) 0.5 (Ref Range: 0.1-1.2 X10*3/uL) 0.6 (Ref Range: 0.1-1.2 X10*3/uL) Eosinophils Absolute Auto 0.2 (Ref Range: 0.0-0.4 X10*3/uL) 0.2 (Ref Range: 0.0-0.4 X10*3/uL) 0.2 (Ref Range: 0.0-0.4 X10*3/uL) Basophils Absolute Auto 0.0 (Ref Range: 0.0-0.2 X10*3/uL) 0.0 (Ref Range: 0.0-0.2 X10*3/uL) 0.0 (Ref Range: 0.0-0.2 X10*3/uL) NRBC Abs Auto 0.000 (Ref Range: 0.0-0.012 X10*3/uL) 0.000 (Ref Range: 0.0-0.012 X10*3/uL) 0.000 (Ref Range: 0.0-0.012 X10*3/uL) * Lab:Jaqui Reyes. Ashwin l Fast * Collection Date 06/22/2024 01/18/2024 12/25/2022 Collection Time 07:46 AM 07:55 AM 06:43 AM Order Date 06/22/2024 01/18/2024 12/25/2022 Sodium 142 (Ref Range: 135-145 mmol/L) 142 (Ref Range: 135-145 mmol/L) 142 (Ref Range: 135-145 mmol/L) Bilirubin Total 0.3 (Ref Range: 0.0-1.0 mg/dL) 0.3 (Ref Range: 0.0-1.0 mg/dL) 0.3 (Ref Range: 0.0-1.0 mg/dL) Aspartate Amino Transferase 19 (Ref Range: 5-31 U/L) 16 (Ref Range: 5-31 U/L) 14 (Ref Range: 5-31 U/L) Alanine Aminotransferase 17 (Ref Range: 0-31 U/L) 17 (Ref Range: 0-31 U/L) 11 (Ref Range: 0-31 U/L) Total Protein 7.5 (Ref Range: 6.5-8.0 g/dL) 7.1 (Ref Range: 6.5-8.0 g/dL) 6.7 (Ref Range: 6.5-8.0 g/dL) Albumin Level 3.9 (Ref Range: 3.5-5.0 g/dL) 3.9 (Ref Range: 3.5-5.0 g/dL) 3.7 (Ref Range: 3.5-5.0 g/dL) Alkaline Phosphatase 102 (Ref Range: 39-117 U/L) 107 (Ref Range: 39-117 U/L) 104 (Ref Range: 39-117 U/L) Potassium 4.2 (Ref Range: 3.3-5.1 mmol/L) 4.4 (Ref Range: 3.3-5.1 mmol/L) 4.1 (Ref Range: 3.3-5.1 mmol/L) Chloride 107 (Ref Range: 96-108 mmol/L) 105 (Ref Range: 96-108 mmol/L) 107 (Ref Range: 96-108 mmol/L) Carbon Dioxide 26 (Ref Range: 22-29 mmol/L) 29 (Ref Range: 22-29 mmol/L) 27 (Ref Range: 22-29 mmol/L) Anion Gap 13 (Ref Range: 12-20) 12 (Ref Range: 12-20) 12 (Ref Range: 12-20) Blood Urea Nitrogen 14 (Ref Range: 9-16 mg/dL) 14 (Ref Range: 9-16 mg/dL) 13 (Ref Range: 9-16 mg/dL) Creatinine 0.86 (Ref Range: 0.5-1.4 mg/dL) 0.84 (Ref Range: 0.5-1.4 mg/dL) 0.85 (Ref Range: 0.5-1.4 mg/dL) Estimated Glomerular Filt Rate > 60 > 60 > 60 Glucose Fasting 102 H (Ref Range: 60-99 mg/dL) 108 H (Ref Range: 60-99 mg/dL) 99 (Ref Range: 60-99 mg/dL) Calcium 8.9 (Ref Range: 8.4-10.2 mg/dL) 9.2 (Ref Range: 8.4-10.2 mg/dL) 8.9 (Ref Range: 8.4-10.2 mg/dL) * Lab:Lipid Panel * Collection Date 06/22/2024 01/18/2024 12/25/2022 Collection Time 07:46 AM 07:55 AM 06:43 AM Order Date 06/22/2024 01/18/2024 12/25/2022 Triglycerides 163 H (Ref Range: <150 mg/dL) 150 H (Ref Range: <150 mg/dL) 86 (Ref Range: <150 mg/dL) Cholesterol 204 H (Ref Range: <200 mg/dL) 229 H (Ref Range: <200 mg/dL) 201 H (Ref Range: <200 mg/dL) LDL Cholesterol Calculated 113 H (Ref Range: <100 mg/dL) 141 H (Ref Range: <100 mg/dL) 119 H (Ref Range: <100 mg/dL) HDL Cholesterol 59 (Ref Range: >40 mg/dL) 58 (Ref Range: >40 mg/dL) 65 (Ref Range: >40 mg/dL) * Lab:Free T4 (Free Thyroxine) * Collection Date 06/22/2024 01/18/2024 12/25/2022 Collection Time 07:46 AM 07:55 AM 06:43 AM Order Date 06/22/2024 01/18/2024 12/25/2022 Free T4 (Free Thyroxine) 1.05 (Ref Range: 0.71-1.85 ng/dL) 0.86 (Ref Range: 0.71-1.85 ng/dL) 0.93 (Ref Range: 0.71-1.85 ng/dL) * Lab:Thyroid Stimulating Horm one * Collection Date 06/22/2024 01/18/2024 12/25/2022 Collection Time 07:46 AM 07:55 AM 06:43 AM Order Date 06/22/2024 01/18/2024 12/25/2022 Thyroid Stimulating Hormone 0.57 (Ref Range: 0.32-4.0 uIU/mL) 1.96 (Ref Range: 0.32-4.0 uIU/mL) 0.60 (Ref Range: 0.32-4.0 uIU/mL) * Examination: G eneral Examination: GENERAL APPEARANCE: p leasant, well nourished, well developed, in no acute distress, calm and relaxed, obese, woman. HEAD: a traumatic, normocephalic. EYES: e ailyn, perrla, anicteric, conjugate. EARS: n ormal. NOSE: s eptum intact. ORAL CAVITY: n ormal, unremarkable. NECK/THYROID: n o jugular venous distention, no carotid bruit, thyroid normal. LYMPH NODES: n o enlarged lymph nodes,spleen normal. SKIN: n o suspicious lesions, anicteric. HEART: n o clicks, gallops, murmurs, or rubs, regular rhythm, S1, S2 normal, no s3, or vascular bruits. LUNGS: c lear to auscultation . BREASTS: no masses palpable bilaterally. ABDOMEN: b owel sounds normal, no ascites, no organomegaly, no mass, Laparoscopic cholecystectomy scars,, centripital obesity. RECTAL EXAM: n ot examined. MUSCULOSKELETAL: e xtremities unremarkable, no clubbing, cyanosis or edema. PERIPHERAL PULSES: n ormal. NEUROLOGIC: a lert and oriented, cranial nerves 2-12 grossly intact, deep tendon reflexes 2+ symmetrical, motor strength normal upper and lower extremities, sensory exam intact. PSYCH: a lert, oriented. Assessment: * Assessment: 1. R ight upper quadrant abdominal pain - R10.11 (Primary) N otes :This is a chronic problem lasting for years. The cause is unclear. She has gained 4 pounds since her last visit. We discussed various lifestyle modification she could make to try and reduce postprandial discomfort 2 . A cute asthmatic bronchitis - J45.909 N otes :She has a new viral syndrome as does her she will use a cough suppressant containing dextromethorphan and an expectorant. He will use Tylenol. She will call me if the fever returns. 3 . L actose intolerance - E73.9 N otes :She will continue with the lactase tablets. 4 . A cquired hypothyroidism - E03.9 N otes :Comprehensive blood work including thyroid function tests will be done. No change in her medication today was necessary. 5 . P artial symptomatic epilepsy with complex partial seizures, intractable, without status epilepticus - G40.219 N otes :She continues on her current medication with no seizures since her last visit. She is compliant with her phenobarbital and is up-to-date with her neurology visits. 6 . H yperlipidemia - E78.5 N otes :Her lipids have been stable. The triglycerides are elevated.We discussed weight loss healthy diet today at [...] one tablet, Orally, once a day. 3. O thers Continue B12. * Procedure Codes: * Preventive Medicine: Counseling: C are goal follow-up plan: Counseling for abnormal BMI given Y es Above Normal BMI Follow-up D ietary management education, guidance, and counseling, Dietary needs education * Follow Up: 6 Weeks (Reason: ov) * Images: * Sign off status: Completed true * Provider: Ericka Russell MD Date: 0 06/26/2024 Generated for Lorenzai sabrina/Lorenzo/eTransmitting on: 1 05/26/2024 07:21 PM EST History and Physical Notes * HPI (History of Present Illness) Category Sub-Category Detail Notes COVID-19 Screening Questions Have you had any new onset fever, chills, cough, congestion, sore throat, shortness of breath, muscle aches?: No Examination Category Sub-Category Detail Notes General Examination GENERAL APPEARANCE: pleasant , well nourished, well developed, in no acute distress, calm and relaxed, obese, woman HEAD: atraumatic, normocep halic EYES: eomi, perrla, anicte justice, conjugate EARS: normal NOSE: septum intact NECK/THYROID: no jugular venous di stention, no carotid bruit, thyroid normal HEART: no clicks, gallops, murmurs, or rubs, regular rhythm, S1, S2 normal, no s3, or vascular bruits LUNGS: clear to auscultatio n ABDOMEN: bowel sounds normal, no ascites, no organomegaly, no mass, Laparoscopic cholecystectomy scars,, centripital obesity NEUROLOGIC: alert and oriented, cranial nerves 2-12 grossly intact, deep tendon reflexes 2+ symmetrical, motor strength normal upper and lower extremities, sensory exam intact SKIN: no suspicious lesion s, anicteric PERIPHERAL PULSES: normal BREASTS: no masses palpable b ilaterally MUSCULOSKELETAL: extremities unremark able, no clubbing, cyanosis or edema LYMPH NODES: no enlarged lymph no donald,spleen normal RECTAL EXAM: not examined PSYCH: alert, oriented ORAL CAVITY: normal, unremarkable
--- OUTSIDE RECORDS SUMMARY | 2024-08-17 06:00 | XMS_ITS ---
Author Organization Elian Russell III, MD Address [address] [place] [address] Care Team Providers Care Kiln Repairer Name Role Phone Dr. Elian Russell III [...] Provider Diagnosis Elian Russell III, MD [address] [place] [address] [place] [address] 08/17/2024 Elian Russell Right upper quadrant abdominal [...] her to the weight loss program at [facility]. Plan Of Treatment Medication Medication Name Sig [...] Name:Elian Russell , 08/17/2025 09:30:00 AM, [address] [place] [address] [address], [place], [address], Provider Name:Elian Russell , 02/01/2026 09:30:00 AM, [address] [place] [address] [address], [place], [address], Progress Notes * Bjorn CORTEZOB:1950 (74 yo F)Acc No.[id number]:08/17/2024 Patient: Barbara TANG Provider: Ericka Russell MD :1950 A ge:74 Y S ex:Female Date:08/17/2024 [id number] Subjective: * Chief Complaints: * R ight [...] of provider rendering services: { ...} [address] 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 Her mother is alive Dx with type [...] ggressive nonsmoker S he was born at [facility] in [place], [place]. She has been to Dario for 46 years. They have 2 daughters, Maliha and Selene and 2 healthy grandchildren. She worked until she was 57 and then retired. She has no toxic exposures. 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 * Medications: T akingTriamcinolone [...] her to the weight loss program at [facility]. Plan: * Treatment: 2. O thers Continue [...] 0 08/17/2024 Generated for Ben bennett/Lorenzo/Dulce on: 05/26/2024 07:20 PM EST History and Physical Notes * HPI (History of Present Illness) Category Sub-Category Detail Notes Telehealth Location of [facility] rendering services:: {...} [address] [place] [phone] Location of patient:: address listed in demographics [...]
--- OUTSIDE RECORDS SUMMARY | 2024-11-10 05:33 | XMS_ITS ---
Author Organization Elian Russell III, MD Address [address] [place] [address] Care Team Providers Care Blind Cleaner Name Role Phone Dr. Elian Russell III Primary Care Provider [phone] REASON FOR VISIT cataract surgery cancelled Social History Sex Assigned At : Social History Observation Description Sex Assigned At Female Encounters Encounter Location Date Provider Diagnosis Elian Russell III, MD [address] [place] [address] [place] [address] 11/10/2024 Elian Russell Plan Of Treatment Next Appt Details Provider Name:Elian Russell , 08/17/2025 09:30:00 AM, [address] [place] [address] [place], [address], Provider Name:Elian Russell , 02/01/2026 09:30:00 AM, [address] [place] [address] [place], [address], Progress Notes * Bjorn ALASOB:1950 (74 yo F)Acc No.[id number]:11/10/2024 Patient: Barbara TANG :1950 A ge:74 Y S ex:Female Address:[address] [place], [address] * true * Date: Generated for Printi ng/Fachloég/eTransmitting on: 05/26/2024 07:21 PM EST
--- OUTSIDE RECORDS SUMMARY | 2024-11-17 13:15 | XMS_ITS ---
Author Organization Elian Russell III, MD Address [address] [place] [address] Care Team Providers Care College Or University Registrar Name Role Phone Dr. Elian Russell III Primary Care Provider [phone] REASON FOR VISIT Pre-Op Social History Sex Assigned At : Social History Observation Description Sex Assigned At Female Encounters Encounter Location Date Provider Diagnosis Elian Russell III, MD [address] [place] [address] [place] [address] 11/17/2024 Elian Russell Plan Of Treatment Next Appt Details Provider Name:Elian Russell , 08/17/2025 09:30:00 AM, [address] [place] [address] [place], [address], Provider Name:Elian Russell , 02/01/2026 09:30:00 AM, [address] [place] [address] [place], [address], Progress Notes * Tara CORTEZFranciscoOB:1950 (74 yo F)Acc No.[id number]:11/17/2024 Patient: Barbara TANG Provider: Ericka Russell MD :1950 A ge:74 Y S ex:Female Date:11/17/2024 Address:[address] [place] Subjective: * Chief Complaints: * 1 . Pre-Op. * Medical History: Objective: * Vitals: Assessment: Plan: * Treatment: * Images: * The named appointment provid er may or may not be the originator of this progress note, and it is not deemed complete until electronically signed by the appointment provider. Sign off status: Pending * Provider: Ericka Russell MD Date: 0 11/17/2024 Generated for Ben bennett/Lorenzo/Dulce on: 1 05/26/2024 07:20 PM EST
--- OUTSIDE RECORDS SUMMARY | 2025-01-27 10:00 | XMS_ITS ---
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 Elian Russell III Primary Care Provider [phone] Allergies Allergen (clinical drug ingredient) Drug/Non Drug Allergy documented on EMR Reaction Allergy Type Onset Date Status Guaiatussin AC stomach upset Drug Allergy Active Seasonale Unknown Drug Allergy Active phenytoin Dilantin HIVES Drug Allergy Active ciprofloxacin Cipro SEVERE ACID REFLUX Drug Allergy Active Blueberry Flavor Unknown Drug Allergy Active diphenhydramine Benadryl Unknown Drug Allergy A ctive sulfamethoxazole / trimethoprim Sulfamethoxazole/ Trimethoprim stomach upset Drug Allergy Active Mold Unknown Allergy Active Dust Mites Unknown Allergy Active REASON FOR VISIT Annual Visit Medications Medication SIG (Take, Route, Frequency, Duration) Notes Start Date End Date Status Vitamin D 1000 UNIT 1 tablet Orally Once a day Active Levothyroxine Sodium 125 MCG TAKE ONE TA BLET BY MOUTH EVERY DAY IN THE MORNING ON AN EMPTY STOMACH Active Melatonin 3 MG 1 tablet at bedtime as needed Orally Once a day Active B12 Active Biotin Active Multivitamin Adults 50+ - Orally Active Airborne - as directed Orally Active PHENobarbital 32.4 MG 1 tablet Orally fi ve times a day Active Immunizations Vaccine Route Administration Date Status Comme nts Influenza Vaccine Afluria IM Intramuscular 01/27/2025 Admi nistered Social History Tobacco Use: Social History Observation [...] Problem Status W/U Status Risk Notes Problem Screening for malignant neoplasm of colon (460906190) Screen for colon cancer (Z12.11) Active confirmed She continues to decline to have a colonoscopy. Problem Liver mass (358813808) Liver mass (R16.0) Active confirmed There is a 9 mm abnormality in the upper Right lobe of the liver. She declined to have imaging done for another 6 months. Problem [id number] Morbid obesity (E66.01) Active confirmed Her body mass index is slightly over 40. We have discussed diet and nutrition. We made a plan to lose weight at a rate of one half of a pound per week. She declined any weight loss medications. Vital Signs Temperature 97.5 degrees Fahrenheit 01/28/20 25 Blood pressure systolic 145 mm Hg 01/28/20 25 Blood pressure diastolic 74 mm Hg 025 Heart Rate 79 /min 01/27/2025 Height 60 in 01/27/2025 Weight 209 lbs 01/27/2025 BMI 40.81 kg/m2 01/27/2025 Encounters Encounter Location Date Provider Diagnosis Elian Russell III, MD [address] [place] [address] [place] [address] 01/27/2025 Elian Russell Encounter for immunization Z23 ; Liver mass R16.0 ; Right upper quadrant abdominal pain R10.11 ; Screen for colon cancer Z12.11 ; Screening mammogram, encounter for Z12.31 ; Morbid obesity E66.01 ; Partial symptomatic epilepsy with complex partial seizures, intractable, without status epilepticus G40.219 ; Acquired hypothyroidism E03.9 ; Lactose intolerance E73.9 and Hyperlipidemia E78.5 Assessments Encounter Date Diagnosis (ICD Code) Assessment Notes Treat ment Notes Treatment Clinical Notes 01/27/2025 Encounter for immunization (ICD-10 - Z23) She received influenza vaccine today without difficulty and tolerated it well. 01/27/2025 Liver mass (ICD-10 - R16.0) There is a 9 mm abnormality in the upper Right lobe of the liver. She declined to have imaging done for another 6 months. 01/27/2025 Right upper quadrant abdominal pain (ICD-10 - R10.11) The pain has resolved for today. She declined further imaging of any kind.She did agree to have an ultrasound of the abdomen 6 months from today. This was scheduled. 01/27/2025 Screen for colon cancer (ICD-10 - Z12.11) She continues to decline to have a colonoscopy. 01/27/2025 Screening mammogram, encounter for (ICD-10 - Z12.31) Her annual screening mammogram has been scheduled. 01/27/2025 Morbid obesity (ICD-10 - E66.01) Her body mass index is slightly over 40. We have discussed diet and nutrition. We made a plan to lose weight at a rate of one half of a pound per week. She declined any weight loss medications. 01/27/2025 Partial symptomatic epilepsy with complex partial seizures, intractable, without status epilepticus (ICD-10 - G40.219) She continues on her current medication with no seizures since her last visit. She is compliant with her phenobarbital and is up-to-date with her neurology visits. 01/27/2025 Acquired hypothyroidism (ICD-10 - E03.9) Comprehensive blood work including thyroid function tests will be done. No change in her medication today was necessary. 01/27/2025 Lactose intolerance (ICD-10 - E73.9) She will continue with the lactase tablets. 01/27/2025 Hyperlipidemia (ICD-10 - E78.5) Her lipids have been stable. The triglycerides are elevated.We discussed weight loss healthy diet today at length. Plan Of Treatment Medication Medication Name Sig Start Date Stop Date Notes Vitamin D 1000 UNIT 1 tablet Orally Once a day Levothyroxine Sodium 125 MCG TAKE ONE TA BLET BY MOUTH EVERY DAY IN THE MORNING ON AN EMPTY STOMACH Melatonin 3 MG 1 tablet at bedtime as needed Orally Once a day B12 Biotin Multivitamin Adults 50+ - Orally Airborne - as directed Orally PHENobarbital 32.4 MG 1 tablet Orally fi ve times a day Pending Test Test Name Order Date US ABD 01/27/2025 COLOGUARD 01/27/2025 MM tomosynthesis screening BI 01/27/2025 Next Appt Details Follow Up: 7 months, Reason: OV Provider Name:Elian Russell , 08/17/2025 09:30:00 AM, [address] [place] [address] , [address], [place], [address], Provider Name:Elian Russell , 02/01/2026 09:30:00 AM, [address] [place] [address] [address] [place], [address], Progress Notes * Bjorn CORTEZOB:1950 (74 yo F)Acc No.[id number]:01/27/2025 Progress Notes Patient: Barbara TANG Provider: Ericka Russell MD :1950 A ge:74 Y S ex:Female Date:01/27/2025 Address: [address] [id number] Subjective: * Chief Complaints: * A nnual Visit * HPI: D epression Screening: He returns to the office at the age of 74 for her annual visit. Her chief complaint today is a small lump under the skin of the medial portion of the left second finger. It appears to be an inclusion cyst. It will be observed. On August 05, 2024. She had an ultrasound of her abdomen that showed a 9 mm abnormality in the right lobe of her liver likely a hemangioma. The radiologist recommended a followup. I suggested we do a 6 month followup ultrasound today to see if there hasn't been increasing in size. I made her aware that there are tumors called hepatoma metastatic and arises in the liver. She did not agreed to have the ultrasound saying she declined at this time but would accept an ultrasound of the abdomen to reimage the abnormality 6 months from today.She is due for a screening mammogram and it was scheduled.I suggested that she have a screening colonoscopy. He adamantly and completely refuses to consider having a colonoscopy and declined my suggestion. PHQ-9 L ittle interest or pleasure in doing things?Not at all F eeling down, depressed, or hopeless N ot at all T rouble falling or staying asleep, or sleeping too much N ot at all F eeling tired or having little energy S everal days P oor appetite or overeating S everal days F eeling bad about yourself or that you are a failure, or have let yourself or your family down N ot at all T rouble concentrating on things, such as reading the newspaper or watching television N ot at all M oving or speaking so slowly that other people could have noticed; or the opposite, being so fidgety or restless that you have been moving around a lot more than usual N ot at all T houghts that you would be better off or of hurting yourself in some way N ot at all T otal Score 2 I nterpretation M inimal Depression Interpretation and Intervention D epression Screening Findings N egative C OVID-19 Screening: Questions H ave you had any new onset fever, chills, cough, congestion, sore throat, shortness of breath, muscle aches? N o S ALEXIS Questions: SDOH Questions I n the past year have you been worried about losing your housing? N o I n the past year have you or any family members you live with been unable to get any of the following when it was really needed? Check all that apply: N one F all Risk Screening: Fall History H ave you had any falls with injury in the past year? N o H ave you had two or more falls in the past year? N o F all Risk Assessment: N o falls in the past year * ROS: G eneral/Constitutional: pain R ight upper quadrant abdominal pain has resolved.?Chills d enies. F atigue a dmits. F [...] yrs, diagnosed with Hyperlipidemia, DM, HTN. D aughter(s): alive. S iblings: alive, Lung Cancer, multiple sclerosis. M aternal aunt: . 3 sister(s) - healthy. 2 daughter(s) - healthy. . Her father at 64 yrs Dx with COPD,diabetes type 2 ,heart disease ,alcoholism, lung disease (supervisor benzene refining). Her mother is alive Dx with type 2 diabetes, HTN, emphysema and heart disease. One sister has MS, another sister has heart problems, another sister has mental health issues, another sister with a blood disorder.Maternal aunt with lung CA.. One sister has had lung cancer resected and . * Social History: T obacco Use: T obacco Control (Standard) T obacco use: N onsmoker A dditional Findings: Tobacco non-user A ggressive nonsmoker D rugs/Alcohol: D rugs H ave you used drugs other than those for medical reasons in the past 12 months? N o D rug/Alcohol: A ALIN-C (Standard) D id you have a drink containing alcohol in the past year? N o P oints 0 I nterpretation N egative S he was born at [facility] in [place], [place]. She has been to Dario for 46 years. They have 2 daughters, Maliha and Selene and 2 healthy grandchildren. She worked until she was 57 and then retired. She has no toxic exposures. 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 * Medications: T akingAirborne - Tablet Chewable as directed Orally PHENobarbital 32.4 MG Tablet 1 tablet Orally [...] Orally Once a day B12 Biotin Taking Airborne - Tablet Chewable as directed Orally Taking PHENobarbital 32.4 MG Tablet 1 tablet [...] Once a day Taking B12 Taking Biotin DiscontinuedTriamcinolone Acetonide 0.1 % Cream 1 application [...] ACID REFLUXBenadrylGuaiatussin AC: stomach upsetSulfamethoxazole/Trimethoprim: stomach upsetMoldDust MitesSeasonaleBlueberry Flavorno[Allergies Verified] Objective: * Vitals: H t: 60, Wt:209, BMI:40.81, BP:145/74, HR:79, Temp:97.5, Ht-cm: 152.4, Wt-k.8. * Examination: G eneral Examination: GENERAL APPEARANCE: p leasant, well nourished, well developed, in no acute distress, calm and relaxed: morbidly obese: woman. HEAD: a traumatic, normocephalic. EYES: e [...] sounds normal, no ascites, no organomegaly, no mass: morbid obesity. RECTAL EXAM: n ot examined. MUSCULOSKELETAL: e xtremities unremarkable, no clubbing, cyanosis or edema. PERIPHERAL PULSES: n ormal. NEUROLOGIC: a lert and oriented, cranial nerves 2-12 grossly intact, deep tendon reflexes 2+ symmetrical, motor strength normal upper and lower extremities, sensory exam intact. PSYCH: a lert, oriented: cognitive function intact: good eye contact: speech clear: thought process logical, goal directed, Appears mentally competent to make decisions on her own behalf. Assessment: * Assessment: 1. L iver mass - R16.0 (Primary) N otes :There is a 9 mm abnormality in the upper Right lobe of the liver. She declined to have imaging done for another 6 months. 2 . E ncounter for immunization - Z23 N otes :She received influenza vaccine today without difficulty and tolerated it well. 3 . R ight upper quadrant abdominal pain - R10.11 N otes :The pain has resolved for today. She declined further imaging of any kind.She did agree to have an ultrasound of the abdomen 6 months from today. This was scheduled. 4 . S creen for colon cancer - Z12.11 N otes :She continues to decline to have a colonoscopy. 5 . S creening mammogram, encounter for - Z12.31 N otes :Her annual screening mammogram has been scheduled. 6 . M orbid obesity - E66.01 N otes :Her body mass index is slightly over 40. We have discussed diet and nutrition. We made a plan to lose weight at a rate of one half of a pound per week. She declined any weight loss medications. 7 . P artial symptomatic epilepsy with complex partial seizures, intractable, without status epilepticus - G40.219 N otes :She continues on her current medication with no seizures since her last visit. She is compliant with her phenobarbital and is up-to-date with her neurology visits. 8 . A cquired hypothyroidism - E03.9 N otes :Comprehensive blood work including thyroid function tests will be done. No change in her medication today was necessary. 9 . L actose intolerance - E73.9 N otes :She will continue with the lactase tablets. 1 0. H yperlipidemia - E78.5 N otes :Her lipids have been stable. The triglycerides are elevated.We discussed weight loss healthy diet today at length. Plan: * Treatment: 2. R ight upper quadrant abdominal pain Continue Airborne Tablet Chewable, -, as directed, Orally; C ontinue PHENobarbital Tablet, 32.4 MG, 1 tablet, Orally, five times a day; C ontinue Multivitamin Adults 50+ Tablet, -, Orally; Continue Vitamin D Tablet, 1000 UNIT, 1 tablet, Orally, Once a day; C ontinue Levothyroxine Sodium Tablet, 125 MCG, TAKE ONE TABLET BY MOUTH EVERY DAY IN THE MORNING ON AN EMPTY STOMACH; C ontinue Melatonin Tablet, 3 MG, 1 tablet at bedtime as needed, Orally, Once a day; C ontinue B12; C ontinue Biotin. I maging: US ABD 3. S creen for colon cancer L AB: COLOGUARD 4. S creening mammogram, encounter for I maging: MM tomosynthesis screening BI * Immunizations: Influenza Vaccine Afluria : 0.5 mL (Dose No:1) (Route: Intramuscular) given by Osmany Helms on Left Arm (Encounter for immunization) ???Immunization record has been reviewed and updated. * Procedure Codes: 9 0674 CCIIV4 VAC NO PRSV 0.5 ML [id number] FLU VACC 4 BREEZY 3 YRS PLUS IM * Preventive Medicine: Counseling: C are goal follow-up plan: Counseling for abnormal BMI given Y es Above Normal BMI Follow-up D ietary management education, guidance, and counseling, Dietary needs education * Follow Up: 7 months (Reason: OV) * Images: * Sign off status: Completed true * Provider: Ericka Russell MD Date: Generated for Ben bennett/Lorenzo/eTransmitting on: 1 05/26/2024 07:20 PM EST History and Physical Notes * HPI (History of Present Illness) Category Sub-Category Detail Notes Depression Screening PHQ-9 Little inte rest or pleasure in doing things: Not at all Feeling down, depressed, or hopeless: No t at all Trouble falling or staying asleep, or sl eeping too much: Not at all Feeling tired or having little energy: S everal days Poor appetite or overeating: Several day s Feeling bad about yourself o r that you are a failure, or have let yourself or your family down: Not at all Trouble concentrating on thi ngs, such as reading the newspaper or watching television: Not at all Moving or speaking so slowly that other people could have noticed; or the opposite, being so fidgety or restless that you have been moving around a lot more than usual: Not at all Thoughts that you would be b deepak off or of hurting yourself in some way: Not at all Total Score: 2 Interpretation: Minimal Depression Interpretation and Intervention Depression Vikash pryor Findings: Negative Fall Risk Screening Fall History Have you had any falls with injury in the past year?: No Have you had two or more falls in the year?: No Fall Risk Assessment:: No falls in the year COVID-19 Screening Questions Have you had any new onset fever, chills, cough, congestion, sore throat, shortness of breath, muscle aches?: No SDOH Questions SDOH Questions In the past year have you been worried about losing your housing?: No In the past year have you or any family members you live with been unable to get any of the following when it was really needed? Check all that apply:: None Examination Category Sub-Category Detail Notes General Examination GENERAL APPEARANCE: pleasant , well nourished, well developed, in no acute distress, calm and relaxed: morbidly obese: woman HEAD: atraumatic, normocep halic EYES: eomi, perrla, anicte justice, conjugate EARS: normal NOSE: septum intact NECK/THYROID: no jugular venous di stention, no carotid bruit, thyroid normal HEART: no clicks, gallops, murmurs, or rubs, regular rhythm, S1, S2 normal, no s3, or vascular bruits LUNGS: clear to auscultatio n ABDOMEN: bowel sounds normal, no ascites, no organomegaly, no mass: morbid obesity NEUROLOGIC: alert and oriented, cranial nerves 2-12 grossly intact, deep tendon reflexes 2+ symmetrical, motor strength normal upper and lower extremities, sensory exam intact SKIN: no suspicious lesion s, anicteric PERIPHERAL PULSES: normal BREASTS: no masses palpable b ilaterally MUSCULOSKELETAL: extremities unremark able, no clubbing, cyanosis or edema LYMPH NODES: no enlarged lymph no donald,spleen normal RECTAL EXAM: not examined PSYCH: alert, oriented: cog nitive function intact: good eye contact: speech clear: thought process logical, goal directed, Appears mentally competent to make decisions on her own behalf ORAL CAVITY: normal, unremarkable
--- OUTSIDE RECORDS SUMMARY | 2025-03-01 08:22 | XMS_ITS ---
Author Organization Elian Russell III, MD Address [address] [place] [address] Care Team Providers Care Change Analyst Name Role Phone Dr. Elian Russell III Primary Care Provider Results Component Value Reference Range Notes COLOGUARD Reviewed date:03/01/2025 01:23:16 PM Interpretation: Performing Lab: Notes/Report: Result Negative REASON FOR VISIT Cologuard order Social History Sex Assigned At : Social History Observation Description Sex Assigned At Female Encounters Encounter Location Date Provider Diagnosis Elian Russell III, MD [address] [place] [address] [place] [address] 03/01/2025 Elian Russell Encounter for screening for malignant neoplasm of colon Z12.11 Assessments Encounter Date Diagnosis (ICD Code) Assessment Notes Treatment Notes Treatment Clinical Notes 03/01/2025 Encounter for screening for malignant neoplasm of colon (ICD-10 - Z12.11) Plan Of Treatment Next Appt Details Provider Name:Elian Russell , 08/17/2025 09:30:00 AM, [address] [place] [address] [place], [address], Provider Name:Elian Russell , 02/01/2026 09:30:00 AM, [address] [place] [address] [place], [address], Progress Notes * Bjorn CORTEZOB:1950 (74 yo F)Acc No.[id number]:03/01/2025 Patient: Barbara TANG :1950 A ge:74 Y S ex:Female Address: [place], [address] Subjective: * Chief Complaints: * C ologuard order * Medical History: * Surgical History: * Hospitalization/Major Diagno stic Procedure: * Medications: Objective: * Vitals: * Physical Examination: Assessment: * Assessment: 1. E ncounter for screening for malignant neoplasm of colon - Z12.11 Plan: * Treatment: Value Reference Range R esult Negative * Procedure Codes: * true * Date: Generated for Ben bennett/Lorenzo/eTneenasmitting on: 05/26/2024 07:20 PM EST
[2025-03-25 17:04] LABS: Free T4 (Free Thyroxine) 0.99 ng/dL (0.71-1.85); Thyroid Stimulating Hormone 0.61 uIU/mL (0.32-4.0)
--- OUTSIDE RECORDS SUMMARY | 2025-03-25 19:21 | XMS_ITS | Patient Health Record ---
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 Elian Russell III Primary Care Provider [phone] Allergies Allergen (clinical drug ingredient) Drug/Non Drug [...] Allergy Active Dust Mites Unknown Allergy Active Results Component Value Reference Range Notes COLOGUARD Reviewed date:03/01/2025 01:23:16 PM Interpretation: Performing Lab: Notes/Report: Result Negative Complete Blood Count Auto Di ff Reviewed date:06/24/2024 08:50:19 PM Interpretation: Performing Lab:[facility], [address] [place] [phone] Notes/Report: White Blood Count 7.2 4.8-10.8 X10*3/uL Red Blood Count 5.30 4.20-5.50 X10*6/uL Hemoglobin 15.0 12.0-16.0 g/dl Hematocrit 46.2 37.0-47.0 % Mean Corpuscular Volume 87.2 80.0-98.0 fL Mean Corpuscular Hemoglobin 28.3 27.0-33.0 pg Mean Corpuscular HGB Conc 32.5 31.0-35.0 g/dl Red Cell Distribution Width 13.4 11.0-16.0 % Platelet Count 230 160-400 X10*3/uL Mean Platelet Volume 9.5 9.4-12.3 fL Neutrophils Percent Auto 54.2 45-73 % Imm Gran Pct Auto 0.4 0.0-0.4 % Lymphocytes Percent Auto 33.7 20-40 % Monocytes Percent Auto 8.2 2-11 % Eosinophils Percent Auto 2.9 0-4 % Basophils Percent Auto 0.6 0-2 % NRBC Pct Auto 0.0 0.0-0.2 /100WBC Neutrophils Absolute Auto 3.9 2.0-8.3 x10*3/u L Imm Gran Abs Auto 0.03 0.00-0.03 X10*3/uL Lymphocytes Absolute Auto 2.4 1.2-4.9 X10*3/u L Monocytes Absolute Auto 0.6 0.1-1.2 X10*3/uL Eosinophils Absolute Auto 0.2 0.0-0.4 X10*3/u L Basophils Absolute Auto 0.0 0.0-0.2 X10*3/uL NRBC Abs Auto 0.000 0.0-0.012 X10*3/uL Comprehensive [place]. Panel Fa st Reviewed date:06/24/2024 08:50:19 PM Interpretation: Performing Lab:[facility], [address] [place] [phone] Notes/Report: Sodium 142 135-145 mmol/L Potassium 4.2 3.3-5.1 mmol/L Chloride 107 96-108 mmol/L Carbon Dioxide 26 22-29 mmol/L Anion Gap 13 12-20 Blood Urea Nitrogen 14 9-16 mg/dL Creatinine 0.86 0.5-1.4 mg/dL Estimated Glomerular Filt Rate > 60 Chronic Kidney Disease: Estimated GFR < 60 mL/min/1.73m2 Severe Kidney Disease: Estimated GFR < 15 mL/min/1.73m2 Glucose Fasting 102 60-99 mg/dL A fasting glucose from 100-125 mg/dl is considered impaired (pre-diabetes). Calcium 8.9 8.4-10.2 mg/dL Bilirubin Total 0.3 0.0-1.0 mg/dL Aspartate Amino Transferase 19 5-31 U/L Alanine Aminotransferase 17 0-31 U/L Total Protein 7.5 6.5-8.0 g/dL Albumin Level 3.9 3.5-5.0 g/dL Alkaline Phosphatase 102 39-117 U/L Lipid Panel Reviewed date:06/24/2024 08:50:19 PM Interpretation: Performing Lab:[facility], [address] [place] [phone] Notes/Report: Triglycerides 163 <150 mg/dL Desirable Triglyceride: less than 150 mg/dL Borderline High Triglyceride 150-199 mg/dL High Triglyceride: 200-499 mg/dL Very High Triglyceride: greater than or equal to 5OO mg/dL Cholesterol 204 <200 mg/dL Desirable Cholesterol: less than 200 mg/dL Borderline High Cholesterol: 200-239 mg/dL High Cholesterol: greater than 239 mg/dL LDL Cholesterol Calculated 113 <100 mg/dL Desirable LDL: less than 100 mg/dL Near Optimal/Above Optimal LDL: 110-129 mg/dL Borderline High LDL: 130-159 mg/dL High LDL: 160-189 mg/dL Very High LDL: greater than or equal to 190 mg/dL HDL Cholesterol 59 >40 mg/dL Desirable HDL: greater than 40 mg/dL Note: This HDL assay may give artificially low results in patients with liver disease. Free T4 (Free Thyroxine) Reviewed date:06/24/2024 08:50:19 PM Interpretation: Performing Lab:[facility], [address] [place] [phone] Notes/Report: Free T4 (Free Thyroxine) 1.05 0.71-1.85 ng/dL Thyroid Stimulating Hormone Reviewed date:06/24/2024 08:50:19 PM Interpretation: Performing Lab:[facility], [address] [place] [phone] Notes/Report: Thyroid Stimulating Hormone 0.57 0.32-4.0 uIU/mL TSH 3rd Generation ([facility]) US abdomen complete Reviewed date:01/25/2025 04:45:29 AM Interpretation: Performing Lab: Notes/Report: [address] [address] Ultrasound Report Signed Patient: Barbara Alas MR#: [id number] 807 : 1950 Acct:[id number] Age/Sex: 74 / F ADM Date: 08/05/24 Loc: HO.US Attending Dr: Elian Russell MD Ordering Physician: Elian Russell MD Date of Service: 08/05/24 Procedure(s): US abdomen complete Accession Number(s): [id number] cc: Elian Russell MD EXAMINATION: US ABDOMEN HISTORY: Upper quadrant pain TECHNIQUE: Real-time grayscale ultrasound imaging of the abdomen was performed and images were reviewed. COMPARISON: There are no prior studies for comparison. FINDINGS: Liver: The liver is normal in size. The liver demonstrates increased echotexture, consistent with steatosis. There is a 9 mm echogenic lesion in the right lobe. No intrahepatic biliary ductal dilatation is identified. There is normal hepatopedal flow in the portal vein. Gallbladder and biliary tree: The gallbladder is surgically absent. The common bile duct is normal in caliber measuring 4 mm. Kidneys: The right kidney measures 8.8 cm in length. The left kidney measures 10.4 cm in length. The kidneys are unremarkable, without evidence of masses, hydronephrosis, or calculi. Pancreas: The pancreatic head, neck, and body are unremarkable. The pancreatic tail is obscured by bowel gas. Spleen: The spleen is normal in size and contour, measuring 8.2 cm in length. Abdominal aorta and inferior vena cava: The visualized portions of the abdominal aorta and inferior vena cava are normal in caliber. There is no free fluid in the abdomen. US/US abdomen complete IMPRESSION: Hepatic steatosis. 9 mm echogenic lesion in the right lobe which may represent a hemangioma. Follow-up is suggested. Electronically signed by: Elian Barrera MD 08/05/2024 05:22 PM EDT Dictated By: Elian Barrera MD Signed By: <Electronically signed by Elian Barrera MD in OV> 08/05/24 1722 DD/ 3 TD/TT: 08/05/24923 Theatre Manager: [address] [address] Ultrasound Report Signed Patient: Tara Alas MR#: [id number] 807 : 1950 Acct:[id number] Age/Sex: 74 / F ADM Date: 08/05/24 Loc: HO.US Attending Dr: Elian Russell MD Ordering Physician: Elian Russell MD Date of Service: 08/05/24 Procedure(s): US abdomen complete Accession Number(s): [id number] cc: Elian Russell MD EXAMINATION: US ABDOMEN HISTORY: Upper quadr ant pain TECHNIQUE: Real-time grayscale ultrasound imaging of the abdomen was performed and images were reviewed. COMPARISON: There ar e no prior studies for comparison. FINDINGS: Liver: The liver is normal in size. The liver demonstrates increased echotexture, consist ent with steatosis. There is a 9 mm echogenic lesion in the right lobe. No intrahepatic biliary ductal dilatation is identified. There is normal hepatopedal flow in the portal vein. Gallbladder and bili hiren tree: The gallbladder is surgically absent. The common bile duct is normal in caliber measuring 4 mm. Kidneys: The right kidney measures 8.8 cm in length. The left kidney measures 10.4 cm in length. The kidneys are unremarkable, without evidence of masses, hydronephrosis, or calculi. Pancreas: The pancreatic head, neck, and body are unremarkable. The pancreatic tail is obscured by bowel gas. Spleen: The spleen i s normal in size and contour, measuring 8.2 cm in length. Abdominal aorta and inferior vena cava: The visualized portions of the abdominal aorta and inferior vena cava are normal in caliber. There is no free flu id in the abdomen. US/US abdomen complete IMPRESSION: Hepatic steatosis. 9 mm echogenic lesion in the right lobe which may represent a hemangio ma. Follow-up is suggested. Electronically mary d by: Elian Barrera MD 08/05/2024 05:22 PM EDT Dictated By: Elina Barrera MD Signed By: <Electronically signed by Elian Barrera MD in OV> 08/05/24 1722 DD/ 3 TD/TT: 08/05/24923 Theatre Manager: Free T4 (Free Thyroxine) (No t yet reviewed by provider) Interpretation: Performing Lab:[facility], [address] [place] [phone] Notes/Report: Free T4 (Free Thyroxine) 0.99 0.71-1.85 ng/dL Thyroid Stimulating Hormone (Not yet reviewed by provider) Interpretation: Performing Lab:[facility], [address], [place] [address] Notes/Report: Thyroid Stimulating Hormone 0.61 0.32-4.0 uIU/mL TSH 3rd Generation ([facility]) Reason For Referral No Information Medications Medication SIG (Take, Route, Frequency, Duration) Notes Start Date End Date Status Multivitamin Adults 50+ - Orally Active Vitamin D 1000 UNIT 1 tablet Orally Once a day Active Levothyroxine Sodium 125 MCG TAKE ONE TA BLET BY MOUTH EVERY DAY IN THE MORNING ON AN EMPTY STOMACH Active Melatonin 3 MG 1 tablet at bedtime as needed Orally Once a day Active B12 Active Biotin Active Airborne - as directed Orally Active [...] Influenza High Dose Quadrivalent Unknown 01/08/2020 Administered Influenza no Preserv 3 and > Unknown 01/24/2016 Administered Flu-IIv3 Unknown 01/29/2019 Administered Influenza Vaccine Afluria IM Intramuscular 01/27/2025 Admi [...] Status W/U Status Risk Notes Problem Hyperlipidemia (00042924) Hyperlipidemia (E78.5) Active confirmed Her lipids have been stable. The triglycerides are elevated.We discussed weight loss healthy diet today at length. Problem [id number] Obesity (BMI 30.0-34.9) (E66.9) Active confirmed Her insurance does not cover weight loss. At her request we have referred her to the weight loss program at [facility]. Problem Liver mass (641822088) Liver mass (R16.0) Active confirmed There is a 9 mm abnormality in the upper Right lobe of the liver. She declined to have imaging done for another 6 months. Problem 324568358 Acquired hypothyroidism (E03.9) Active confirmed Comprehensive blood work including thyroid function tests will be done. No change in her medication today was necessary. Problem Right upper quadrant pain (038170532) Right upper quadrant abdominal pain (R10.11) Active confirmed The pain has resolved for today. She declined further imaging of any kind.She did agree to have an ultrasound of the abdomen 6 months from today. This was scheduled. Problem 229258723 Morbid obesity (E66.01) Active confirmed Her body mass index is slightly over 40. We have discussed diet and nutrition. We made a plan to lose weight at a rate of one half of a pound per week. She declined any weight loss medications. Problem 002486747 Lactose intolerance (E73.9) Active confirmed She will contin ue with the lactase tablets. Problem 407146811 Acute asthmatic bronchitis (J45.909) Active confirmed She has a new viral syndrome as does her she will use a cough suppressant containing dextromethorphan and an expectorant. He will use Tylenol. She will call me if the fever returns. 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 She is compliant with her phenobarbital and is up-to-date with her neurology visits. Problem [id number] Colonoscopy refused (Z53.20) Active confirmed She has refused this in the past and visit again today. Problem Screening for malignant neoplasm of colon (004669405) Screen for colon cancer (Z12.11) Active confirmed She continues t o decline to have a colonoscopy. Vital Signs Heart Rate 79 /min 01/27/2025 Temperature 97.5 degrees Fahrenheit 01/27/2025 Blood pressure diastolic 74 mm Hg 01/27/2025 Height 60 in 01/27/2025 Blood pressure systolic 145 mm Hg 01/27/2025 Weight 209 lbs 01/27/2025 BMI 40.81 kg/m2 01/27/2025 Encounters Encounter Location Date Provider Diagnosis Elian Russell III, MD [address] [place] [address] [place] [phone] 06/26/2024 Elian Russell Acute asthmatic bronchitis J45.909 ; Right upper quadrant abdominal pain R10.11 ; Lactose intolerance E73.9 ; Acquired hypothyroidism E03.9 ; Partial symptomatic epilepsy with complex partial seizures, intractable, without status epilepticus G40.219 and Hyperlipidemia E78.5 Elian Russell III, MD [address] [place] [address] [place] [address] 08/17/2024 Elian Russell Right upper quadrant abdominal pain R10.11 ; Acquired hypothyroidism E03.9 ; Lactose intolerance E73.9 ; Hyperlipidemia E78.5 and Obesity (BMI 30.0-34.9) E66.9 Elian Russell III, MD [address] [place] [address] [place] [address] 01/27/2025 Elian Russell Encounter for immunization Z23 ; Liver mass R16.0 ; Right upper quadrant abdominal pain R10.11 ; Screen for colon cancer Z12.11 ; Screening mammogram, encounter for Z12.31 ; Morbid obesity E66.01 ; Partial symptomatic epilepsy with complex partial seizures, intractable, without status epilepticus G40.219 ; Acquired hypothyroidism E03.9 ; Lactose intolerance E73.9 and Hyperlipidemia E78.5 Elian Russell III, MD [address] [place] [address] [place] [address] 11/10/2024 Elian Russell III, MD [address] [place] [address] [place] [address] 03/01/2025 Elian Russell Encounter for screen ing for malignant neoplasm of colon Z12.11 Assessments Encounter Date Diagnosis (ICD Code) Assessment Notes T reatment Notes Treatment Clinical Notes 06/26/2024 Right upper quadrant abdominal pain (ICD-10 - R10.11) This is a chronic problem lasting for years. The cause is unclear. She has gained 4 pounds since her last visit. We discussed various lifestyle modification she could make to try and reduce postprandial discomfort 06/26/2024 Acute asthmatic bronchitis (ICD-10 - J45.909) She has a new viral syndrome as does her she will use a cough suppressant containing dextromethorphan and an expectorant. He will use Tylenol. She will call me if the fever returns. 08/17/2024 Acquired hypothyroidism (ICD-10 - E03.9) Comprehensive blood work including thyroid function tests will be done. No change in her medication today was necessary. 08/17/2024 Right upper quadrant abdominal pain (ICD-10 - R10.11) This is a chronic problem lasting for years. The cause is unclear. She has gained 4 pounds since her last visit. We discussed various lifestyle modification she could make to try and reduce postprandial discomfor. Pyle MRI or CT scan of the abdomen is being considered. 01/27/2025 Liver mass (ICD-10 - R16.0) There is a 9 mm abnormality in the upper Right lobe of the liver. She declined to have imaging done for another 6 months. 01/27/2025 Encounter for immunization (ICD-10 - Z23) She received influenza vaccine today without difficulty and tolerated it well. 03/01/2025 Encounter for screening for malignant neoplasm of colon (ICD-10 - Z12.11) 06/26/2024 Lactose intolerance (ICD-10 - E73.9) She will continue with the lactase tablets. 08/17/2024 Lactose intolerance (ICD-10 - E73.9) She will continue with the lactase tablets. 01/27/2025 Right upper quadrant abdominal pain (ICD-10 - R10.11) The pain has resolved for today. She declined further imaging of any kind.She did agree to have an ultrasound of the abdomen 6 months from today. This was scheduled. 06/26/2024 Acquired hypothyroidism (ICD-10 - E03.9) Comprehensive blood work including thyroid function tests will be done. No change in her medication today was necessary. 08/17/2024 Hyperlipidemia (ICD-10 - E78.5) Her lipids have been stable. The triglycerides are elevated.We discussed weight loss healthy diet today at length. 01/27/2025 Screen for colon cancer (ICD-10 - Z12.11) She continues to decline to have a colonoscopy. 06/26/2024 Partial symptomatic epilepsy with complex partial seizures, intractable, without status epilepticus (ICD-10 - G40.219) She continues on her current medication with no seizures since her last visit. She is compliant with her phenobarbital and is up-to-date with her neurology visits. 08/17/2024 Obesity (BMI 30.0-34.9) (ICD-10 - E66.9) Her insurance does not cover weight loss. At her request we have referred her to the weight loss program at [facility]. 01/27/2025 Screening mammogram, encounter for (ICD-10 - Z12.31) Her annual screening mammogram has been scheduled. 06/26/2024 Hyperlipidemia (ICD-10 - E78.5) Her lipids have been stable. The triglycerides are elevated.We discussed weight loss healthy diet today at length. 01/27/2025 Morbid obesity (ICD-10 - E66.01) Her [...] diet today at length. Plan Of Treatment Pending Test Test Name Order Date PROFILE, FASTING (COMPREHENSIVE METABOLI C) 08/07/2023 PROFILE, FASTING (COMPREHENSIVE METABOLI C) 01/23/2023 PROFILE, FASTING (COMPREHENSIVE METABOLI C) 03/02/2024 TSH (THYROID STIMULATING HORMONE) 2023 TSH (THYROID STIMULATING HORMONE) 2022 TSH (THYROID STIMULATING HORMONE) 2023 US ABD 06/26/2024 US ABD 01/27/2025 VITAMIN D 25-OH TOTAL 08/07/2023 CBC WITH AUTO DIFF 01/23/2023 CBC WITH AUTO DIFF 03/02/2024 CBC WITH AUTO DIFF 08/07/2023 COLOGUARD 01/27/2025 Lipid Panel 01/23/2023 Lipid Panel 03/02/2024 Lipid Panel 08/07/2023 Free T4 (Free Thyroxine) 01/23/2023 Free T4 (Free Thyroxine) 03/25/2025 Free T4 (Free Thyroxine) 03/02/2024 Free T4 (Free Thyroxine) 08/07/2023 Thyroid Stimulating Hormone 03/25/2025 MM tomosynthesis screening BI 01/27/2025 Next Appt Details Provider Name:Elian Russell , 08/17/2025 09:30:00 AM, [address] [place] [address] [address], [place], [address], Provider Name:Elian Russell , 02/01/2026 09:30:00 AM, [address] [place] [address] [address], [place], [address], Insurance Providers Payer Name Payer Address Payer Phone Subscriber Number Group Number Insured Name Patient Relationship to Insured Coverage Start Date Coverage End Date [facility] [address] [place], [place] [id number] Barbara Alas Self - patient is the insured MEDICARE NGS [address] [place] [phone] [id number] Barbara Alas Self - patient is the insured Medical (General) History Medical History History ICD Code Hypothyroidism, unspecified type E03.9 Lactose intolerance E73.9 Obesity without serious janeth rbidity, unspecified classification, unspecified obesity type E66.9 Nodule of flexor tendon sheath M67.90 Depression, unspecified depression type F32.9 partial complex seizure disorder History of cholecystitis 2010 Surgical History Surgery Date(Month/Year) tonsillecctomy cholecystectomy 2010 Tubal ligation 1994 Hospitalization History Reason Date(Month/Year) No history
== END 2025-03-25 15:22 | disposition home or self-care (01) ==
LOC: HO.LAB 15:21
PROVIDERS: PCP Internal Medicine Medical Oncology; Visit Provider Internal Medicine Endocrinology, Diabetes & Metabolism
DX: E03.9 Hypothyroidism, unspecified (principal)
CPT/HCPCS: 36415; 84439; 84443

== ENCOUNTER 2025-03-29 10:01 | Outpatient (AMB) | payer MEDICARE, SELFPAY ==
--- OUTSIDE RECORDS SUMMARY | 2024-01-30 08:57 | XMS_ITS ---
Author Organization Elian Russell III, MD Address [address] [place] [address] Care Team Providers Care Programming Engineer Name Role Phone Dr. Elian Russell III Primary Care Provider REASON FOR VISIT FYI only Social History Sex Assigned At : Social History Observation Description Sex Assigned At Female Encounters Encounter Location Date Provider Diagnosis Elian Russell III, MD [address] [place] [address] [place] [address] 01/30/2024 Elian Russell Plan Of Treatment Next Appt Details Provider Name:Elian Russell , 08/17/2025 09:30:00 AM, [address] [place] [address] [place], [address], Provider Name:Elian Russell , 02/01/2026 09:30:00 AM, [address] [place] [address] [place], [address], Progress Notes * Bjorn ALASOB:1950 (73 yo F)Acc No.[id number]:01/30/2024 Patient: Barbara TANG :1950 A ge:73 Y S ex:Female Address:[address] [place], [address] * true * Date: Generated for Printi ng/Faxing/eTransmitting on: 05/30/2024 12:01 PM EST
--- OUTSIDE RECORDS SUMMARY | 2024-02-07 08:33 | XMS_ITS ---
Author Organization Elian Russell III, MD Address [address] [place] [address] Care Team Providers Care Machine Former Name Role Phone Dr. Elian Russell III Primary Care Provider REASON FOR VISIT Chest Cold-Message Only Social History Sex Assigned At : Social History Observation Description Sex Assigned At Female Encounters Encounter Location Date Provider Diagnosis Elian Russell III, MD [address] [place] [address] [place] [address] 02/07/2024 Elian Russell Plan Of Treatment Next Appt Details Provider Name:Elian Russell , 08/17/2025 09:30:00 AM, [address] [place] [address] [place], [address], Provider Name:Elian Russell , 02/01/2026 09:30:00 AM, [address] [place] [address] [place], [address], Progress Notes * Bjorn ALASOB:1950 (73 yo F)Acc No.[id number]:02/07/2024 Patient: Barbara TANG :1950 A ge:73 Y S ex:Female Address:[address] [place], [address] * true * Date: Generated for Printi ng/Fachloég/eTransmitting on: 05/30/2024 12:00 PM EST
--- OUTSIDE RECORDS SUMMARY | 2024-02-10 04:15 | XMS_ITS ---
Author Organization Elian Russell III, MD Address [address] [place] [address] Care Team Providers Care Dot Compliance Coordinator Name Role Phone Dr. Elian Russell III Primary Care Provider Allergies Allergen (clinical drug ingredient) Drug/Non Drug Allergy documented on EMR Reaction Allergy Type Onset Date Status Dust Mites Unknown Allergy Active Guaiatussin AC stomach upset Drug Allergy Active Seasonale Unknown Drug Allergy Active phenytoin Dilantin HIVES Drug Allergy Active ciprofloxacin Cipro SEVERE ACID REFLUX Drug Allergy Active diphenhydramine Benadryl Unknown Drug Allergy A ctive sulfamethoxazole / trimethoprim Sulfamethoxazole/ Trimethoprim stomach upset Drug Allergy Active Mold Unknown Allergy Active REASON FOR VISIT Viral syndrome Medications Medication SIG (Take, Route, Frequency, Duration) Notes Start Date End Date Status Levothyroxine Sodium 125 MCG TAKE ONE TABLET BY MOUTH EVERY DAY IN THE MORNING ON AN EMPTY STOMACH Active Vitamin D 1000 UNIT 1 tablet Orally Once a day Active Multivitamin Adults 50+ - Orally Active PHENobarbital 32.4 MG 1 tablet Orally fi ve times a day Active Melatonin 3 MG 1 tablet at bedtime as needed Orally Once a day Active Triamcinolone Acetonide 0.1 % 1 application Externally Twice a day 01/11/2023 Active B12 Active Wegovy 0.25 MG/0.5ML 0.5 mL Subcutaneous weekly 01/27/2024 Active predniSONE 20 MG 1 tablet with food o r milk Orally Once a day 07/19/2023 Active Semaglutide 3 MG one tablet Orally on ce a day for 30 days 02/10/2024 09/07/2024 Active Social History Tobacco Use: Social History Observation Description Date Details (start date - stop date) Never Smoker NA - NA Sex Assigned At : Social History Observation Description Sex Assigned At Female Tobacco Use/Smoking Question Answer Notes Patient is a nonsmoker Additional Findings: Tobacco Non-User Aggressive non-smoker Tobacco Control (Standard) Question Answer Notes Tobacco use: Nonsmoker Additional Findings: Tobacco non-user Aggressive nonsmoker Vital Signs Height 60 in 02/10/2024 Weight 200 lbs 02/10/2024 BMI 39.06 kg/m2 02/10/2024 Encounters Encounter Location Date Provider Diagnosis Elian Russell III, MD [address] [place] [address] [place] [address] 02/10/2024 Elian Russell Acute asthmatic bronchitis J45.909 ; Partial symptomatic epilepsy with complex partial seizures, intractable, without status epilepticus G40.219 ; Acquired hypothyroidism E03.9 and Obesity (BMI 30.0-34.9) E66.9 Assessments Encounter Date Diagnosis (ICD Code) Assessment Notes T reatment Notes Treatment Clinical Notes 02/10/2024 Acute asthmatic bronchitis (ICD-10 - J45.909) She has a new viral syndrome as does her she will use a cough suppressant containing dextromethorphan and an expectorant. He will use Tylenol. She will call me if the fever returns. 02/10/2024 Partial symptomatic epilepsy with complex partial seizures, intractable, without status epilepticus (ICD-10 - G40.219) She continues on her current medication with no seizures since her last visit. She is compliant with her phenobarbital and is up-to-date with her neurology visits. 02/10/2024 Acquired hypothyroidism (ICD-10 - E03.9) She is compliant with her medication and her levels have been normal. No change in her regimen as needed. 02/10/2024 Obesity (BMI 30.0-34.9) (ICD-10 - E66.9) She has gained 9 pounds. She admits to stress eating. We have discussed alternate ways of reducing stress. She declined an order for Contrave. I have prescribed Wegovy. Plan Of Treatment Medication Medication Name Sig Start Date Stop Date Notes Levothyroxine Sodium 125 MCG TAKE ONE TA BLET BY MOUTH EVERY DAY IN THE MORNING ON AN EMPTY STOMACH Vitamin D 1000 UNIT 1 tablet Orally Once a day Multivitamin Adults 50+ - Orally PHENobarbital 32.4 MG 1 tablet Orally fi ve times a day Melatonin 3 MG 1 tablet at bedtime as needed Orally Once a day Triamcinolone Acetonide 0.1 % 1 applicat ion Externally Twice a day 01/11/2023 B12 Wegovy 0.25 MG/0.5ML 0.5 mL Subcutaneous weekly 01/27/2024 predniSONE 20 MG 1 tablet with food o r milk Orally Once a day 07/19/2023 Semaglutide 3 MG one tablet Orally on ce a day for 30 days 02/10/2024 09/07/2024 Next Appt Details Follow Up: 2 Weeks, Reason: Provider Name:Elian Russell , 08/17/2025 09:30:00 AM, [address] [place] [address] [address], [place], [address], Provider Name:Elian Russell , 02/01/2026 09:30:00 AM, [address] [place] [address] [address], [place], [address], Progress Notes * Bjorn BELLOB: 2 (73 yo F)Acc No.[id number]:02/10/2024 Patient: Barbara GARCIA Provider: Ericka Russell MD :1950 A ge:73 Y S ex:Female Date:02/10/2024 Address:[address] [place] [address] JACQUELINESudarshan [id number] Subjective: * Chief Complaints: * V iral syndrome * HPI: * : This telehealth visit took place over 15 minutes with the patient at home and me in my office. She gave consent for billing. She reports that she has had a bad cold for the last several days. He has had a cough which is nonproductive and chills and anorexia. He has had a sore throat and plugged ears and sinuses. Her temperature was up to 100 and to decrease several days ago but is now within normal limits. She denies any recent vertigo. She is rapidly improving. She was asked to give me a call in 72 hours to report her status. We were unable to get her insurance company to reimburse Gaurivy. I have prescribed oral semaglutide aat her request. Telehealth L ocation of provider rendering services: { ...} [address] [facility] [address] L ocation of patient: bert santiago listed in demographics for today's visit P atient identification confirmed using: Maribel smith, ERIC T elehealth method: T elephone only. Patient not visible to care provider. C onsent: P atient verbally consented to treatment, Patient verbally consented to billing insurance company, Patient informed of any privacy concerns related to method of visit T otal time spent with patient (mins) 1 5 * ROS: G eneral/Constitutional: pain o nly normal aches and pains. C hills a ssociated with fever. F atigue a dmits. F ever u p to 102 degrees. E NT: Decreased hearing d enies. R espiratory: Cough n on-productive. C ardiovascular: Chest pain with exertion d enies. D yspnea on exertion?denies. S hortness of breath d enies. G astrointestinal: Constipation o ccasional. D ecreased appetite d enies. D iarrhea d enies. H eartburn d enies. N ausea d enies. R ectal bleeding d enies. V omiting d enies. H ematology: bruising d enies. p etechiae d enies. S wollen glands n one have been noted. G enitourinary: Frequent urination d enies. M usculoskeletal: Muscle aches d enies. P ainful joints d enies. S ciatica d enies. W eakness d enies. S kin: Itching d enies. R wilbur d enies. S kin lesion(s)?denies. N eurologic: Difficulty speaking d enies. D izziness d enies.?Headache d enies. L ow back pain d enies. P sychiatric: Depressed mood d enies. * Medical History: * Surgical History: T ubal ligation 1994cholecystectomy 2012tonsillecctomy No history * Hospitalization/Major Diagno stic Procedure: N o history * Family History: F ather: 64 yrs, diagnosed with DM, HTN, Hyperlipidemia, CVD. M other: 88 yrs, diagnosed with DM, HTN, Hyperlipidemia. D kris(s): alive. S lonnie: alive. M breann aunt: . 3 sister(s) - healthy. 2 daughter(s) - healthy. . Her father at 64 yrs Dx with COPD,diabetes type 2 ,heart disease ,alcoholism, lung disease (logistics associate). Her mother is alive Dx with type 2 diabetes, HTN, emphysema and heart disease. One sister has MS, another sister has heart problems, another sister has mental health issues, another sister with a blood disorder.Maternal aunt with lung CA.. One sister has had lung cancer resected. * Social History: T obacco Use: T obacco Use/Smoking P atnorm is a n onsmoker A dditional Findings: Tobacco Non-User A ggressive non-smoker Tobacco Control (Standard) T obacco use: N onsmoker A dditional Findings: Tobacco non-user A ggressive nonsmoker S he was born at [facility] in [place], [place]. She has been to Dario for 46 years. They have 2 daughters, Maliha and Selene and 2 healthy grandchildren. She worked until she was 57 and then retired. She has no toxic exposures. 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 * Medications: T akingTriamcinolone Acetonide 0.1 % Cream 1 application Externally Twice a day PHENobarbital 32.4 MG Tablet 1 tablet Orally five times a day Multivitamin Adults 50+ - Tablet Orally Vitamin D 1000 UNIT Tablet 1 tablet Orally Once a day Levothyroxine Sodium 125 MCG Tablet TAKE ONE TABLET BY MOUTH EVERY DAY IN THE MORNING ON AN EMPTY STOMACH Melatonin 3 MG Tablet 1 tablet at bedtime as needed Orally Once a day predniSONE 20 MG Tablet 1 tablet with food or milk Orally Once a day B12 Wegovy 0.25 MG/0.5ML Solution Auto-injector 0.5 mL Subcutaneous weekly , stop date 12/28/2024Medication List reviewed and reconciled with the patientTaking Triamcinolone Acetonide 0.1 % Cream 1 application Externally Twice a day Taking PHENobarbital 32.4 MG Tablet 1 tablet Orally five times a day Taking Multivitamin Adults 50+ - Tablet Orally Taking Vitamin D 1000 UNIT Tablet 1 tablet Orally Once a day Taking Levothyroxine Sodium 125 MCG Tablet TAKE ONE TABLET BY MOUTH EVERY DAY IN THE MORNING ON AN EMPTY STOMACH Taking Melatonin 3 MG Tablet 1 tablet at bedtime as needed Orally Once a day Taking predniSONE 20 MG Tablet 1 tablet with food or milk Orally Once a day Taking B12 Taking Wegovy 0.25 MG/0.5ML Solution Auto-injector 0.5 mL Subcutaneous weekly , stop date 12/28/2024Medication List reviewed and reconciled with the patient * Allergies: D ilantin: HIVESCipro: SEVERE ACID REFLUXBenadrylGuaiatussin AC: stomach upsetSulfamethoxazole/Trimethoprim: stomach upsetMoldDust MitesSeasonaleno[Allergies Verified] Objective: * Vitals: H t: 60, Wt:200, BMI:39.06, Ht-cm: 152.4, Wt-k.72. Assessment: * Assessment: 1. P artial symptomatic epilepsy with complex partial seizures, intractable, without status epilepticus - G40.219 (Primary) N otes :She continues on her current medication with no seizures since her last visit. She is compliant with her phenobarbital and is up-to-date with her neurology visits. 2 . A cute asthmatic bronchitis - J45.909 N otes :She has a new viral syndrome as does her she will use a cough suppressant containing dextromethorphan and an expectorant. He will use Tylenol. She will call me if the fever returns. 3 . A cquired hypothyroidism - E03.9 N otes :She is compliant with her medication and her levels have been normal. No change in her regimen as needed. 4 . O besity (BMI 30.0-34.9) - E66.9 N otes :She has gained 9 pounds. She admits to stress eating. We have discussed alternate ways of reducing stress. She declined an order for Contrave. I have prescribed Wegovy. Plan: * Treatment: 2. O thers Continue B12. * Procedure Codes: 9 [id number] PHONE E/M BY PHYS 11-20 MIN * Preventive Medicine: Counseling: C are goal follow-up plan: Counseling for abnormal BMI given Y es Above Normal BMI Follow-up D ietary management education, guidance, and counseling, Dietary needs education * Follow Up: 2 Weeks * Images: * Sign off status: Completed true * Provider: Ericka Russell MD Date: 04/11/2023 Generated for Ben bennett/Lorenzo/Dulce on: 05/30/2024 12:01 PM EST History and Physical Notes * HPI (History of Present Illness) Category Sub-Category Detail Notes Telehealth Location of [facility] rendering services:: {...} [address] [place] [address] Drive [address] [place] [address] Location of patient:: address listed in demographics for today's visit Patient identification confirmed using:: Name, Telehealth method:: Telephone only. Lazara ent not visible to care provider. Consent:: Patient verbally c onsented to treatment, Patient verbally consented to billing insurance company, Patient informed of any privacy concerns related to method of visit Total time spent with patient (mins): 15
--- OUTSIDE RECORDS SUMMARY | 2024-03-02 11:30 | XMS_ITS ---
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 Elian Russell III [...] Mold Unknown Allergy Active REASON FOR VISIT Epilepsy, Obesity, Hypothyroidism, Hyperlipidemia Medications Medication SIG (Take, Route, Frequency, Duration) Notes Start Date End Date Status Melatonin 3 MG 1 tablet at bedtime as needed Orally Once a day Active predniSONE 20 MG 1 tablet with food o r milk Orally Once a day 07/19/2023 Active B12 Active Wegovy 0.25 MG/0.5ML 0.5 mL Subcutaneous weekly 01/27/2024 Active Semaglutide 3 MG one tablet Orally on a day 02/10/2024 Active Triamcinolone Acetonide 0.1 % 1 application Externally Twice a day 01/11/2023 Active PHENobarbital 32.4 MG 1 tablet Orally fi ve times a day Active Multivitamin Adults 50+ - Orally Active Vitamin D 1000 UNIT 1 tablet Orally Once a day Active Levothyroxine Sodium 125 MCG TAKE ONE TABLET BY MOUTH EVERY DAY IN THE MORNING ON AN EMPTY STOMACH Active Social History Tobacco Use: Social History [...] Aggressive nonsmoker Vital Signs Height 60 in 03/02/2024 Weight 200 lbs 03/02/2024 BMI 39.06 kg/m2 03/02/2024 Encounters Encounter Location Date Provider Diagnosis Elian Russell III, MD [address] [place] [address] [place] [address] 03/02/2024 Elian Russell Acute asthmatic bronchitis J45.909 ; Obesity (BMI 30.0-34.9) E66.9 ; Acquired hypothyroidism E03.9 and Hyperlipidemia E78.5 Assessments Encounter Date Diagnosis (ICD Code) Assessment Notes T reatment Notes Treatment Clinical Notes 03/02/2024 Acute asthmatic bronchitis (ICD-10 - J45.909) She has a new viral syndrome as does her she will use a cough suppressant containing dextromethorphan and an expectorant. He will use Tylenol. She will call me if the fever returns. 03/02/2024 Obesity (BMI 30.0-34.9) (ICD-10 - E66.9) Her insurance does not cover weight loss. At her request we have referred her to the weight loss program at [facility]. 03/02/2024 Acquired hypothyroidism (ICD-10 - E03.9) Comprehensive blood work including thyroid function tests will be done. No change in her medication today was necessary. 03/02/2024 Hyperlipidemia (ICD-10 - E78.5) Her lipids have been stable. We discussed weight loss healthy diet today at length. Plan Of Treatment Medication Medication Name Sig Start Date Stop Date Notes Melatonin 3 MG 1 tablet at bedtime as needed Orally Once a day predniSONE 20 MG 1 tablet with food o r milk Orally Once a day 07/19/2023 B12 Wegovy 0.25 MG/0.5ML 0.5 mL Subcutaneous weekly 01/27/2024 Semaglutide 3 MG one tablet Orally once a day 02/10/2024 Triamcinolone Acetonide 0.1 % 1 applicat ion Externally Twice a day 01/11/2023 PHENobarbital 32.4 MG 1 tablet Orally fi ve times a day Multivitamin Adults 50+ - Orally Vitamin D 1000 UNIT 1 tablet Orally Once a day Levothyroxine Sodium 125 MCG TAKE ONE TA BLET BY MOUTH EVERY DAY IN THE MORNING ON AN EMPTY STOMACH Pending Test Test Name Order Date PROFILE, FASTING (COMPREHENSIVE METABOLI C) 03/02/2024 TSH (THYROID STIMULATING HORMONE) 2023 CBC WITH AUTO DIFF 03/02/2024 Lipid Panel 03/02/2024 Free T4 (Free Thyroxine) 03/02/2024 Next Appt Details Follow Up: 4 Months, 3 or 4 months, Reason: OV, To monitor the patient's progress with the [facility] weight loss program Provider Name:Elian Russell , 08/17/2025 09:30:00 AM, [address] [place] [address] [address], [place], [address], Provider Name:Elian Russell , 02/01/2026 09:30:00 AM, [address] [place] [address] [address], [place], [address], Progress Notes * Tara BELLFranciscoOB: 2 (73 yo F)Acc No.[id number]:03/02/2024 Patient: Barbara GARCIA Provider: Ericka Russell MD :1950 A ge:73 Y S ex:Female Date:03/02/2024 Address: [address] [id number] Subjective: * Chief Complaints: * E pilepsyObesityHypothyroidismHyperlipidemia * HPI: * : Telehealth L ocation of provider rendering services: { ...} [address] [place] [address] Drive [address] [place] [address] L ocation of patient: bert robyness listed in demographics for today's visit P atient identification confirmed using: N luis, T elehealth method: T elephone only. Patient not visible to care provider. C onsent: P atient verbally consented to treatment, Patient verbally consented to billing insurance company, Patient informed of any privacy concerns related to method of visit Jabari yang time spent with patient (mins) 1 5 This telehealth visit took place over 15 minutes with the patient at home and me in my office. She gave consent for billing. The patient, a 73-year-old female, reported feeling much better with no fever or chills. She mentioned that she had recently started a weight loss program called [facility]'. She also mentioned that she had been prescribed semaglutide tablets, but her insurance did not cover it. The patient also mentioned that she struggles with weight gain during the summer due to ice cream and barbecues. She plans to manage her diet during the upcoming holidays using the [facility] program. Unfortunately her insurance does not cover weight loss drugs. * ROS: G eneral/Constitutional: pain o nly normal aches and pains. D enies C hills,?denies. F atigue a dmits. D enies F ever, d enies. E NT: Decreased hearing d enies. R espiratory: Cough d enies. C ardiovascular: Chest pain with exertion d enies. D yspnea on exertion?denies. S hortness of breath d enies. G astrointestinal: Constipation d enies. D ecreased appetite d enies.?Diarrhea t hat is infrequent. H eartburn o ccasional. N ausea d enies. R ectal bleeding [...] History: F ather: 65 yrs, diagnosed with CVD, DM, HTN, Hyperlipidemia. M other: 88 yrs, diagnosed with DM, HTN, Hyperlipidemia. D aughter(s): alive. S iblings: alive. M frantzl aunt: . 3 sister(s) - healthy. 2 daughter(s) - healthy. . Her father at 64 yrs Dx with COPD,diabetes type 2 ,heart disease ,alcoholism, lung disease (nuclear equipment design engineer). Her mother is alive Dx with type 2 diabetes, HTN, emphysema and heart disease. One sister has MS, another sister has heart problems, another sister has mental health issues, another sister with a blood disorder.Maternal aunt with lung CA.. One sister has had lung cancer resected. * Social History: T obacco Use: T obacco Use/Smoking P v[place] is a n onsmoker A dditional Findings: Tobacco Non-User A ggressive non-smoker Tobacco Control (Standard) T obacco use: N onsmoker A dditional Findings: Tobacco non-user A ggressive nonsmoker S he was born at [facility] in [place], [place]. She has been to Dario for 46 years. They have 2 daughters, Maliha and Selene and 2 healthy grandchildren. She worked until she was 57 and then retired. She has no toxic exposures. 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 * Medications: T akingTriamcinolone Acetonide 0.1 % [...] or milk Orally Once a day B12 Semaglutide 3 MG Tablet one tablet Orally once a day , stop date 09/07/2024Wegovy 0.25 MG/0.5ML Solution Auto-injector 0.5 mL Subcutaneous weekly Medication List reviewed and reconciled with the patientTaking [...] Orally Once a day Taking B12 Taking Semaglutide 3 MG Tablet one tablet Orally once a day , stop date 09/07/2024Taking Wegovy 0.25 MG/0.5ML Solution Auto-injector 0.5 mL Subcutaneous weekly Medication List reviewed and reconciled with the patient * Allergies: D ilantin: HIVESCipro: SEVERE ACID REFLUXBenadrylGuaiatussin AC: stomach upsetSulfamethoxazole/Trimethoprim: stomach upsetMoldDust MitesSeasonaleno[Allergies Verified] Objective: * Vitals: H t: 60, Wt:200, BMI:39.06, Ht-cm: 152.4, Wt-k.72. Assessment: * Assessment: 1. O besity (BMI 30.0-34.9) - E66.9 (Primary) N otes :Her insurance does not cover weight loss. At her request we have referred her to the weight loss program at [facility]. 2 . A cute asthmatic bronchitis - J45.909 N otes :She has a new viral syndrome as does her she will use a cough suppressant containing dextromethorphan and an expectorant. He will use Tylenol. She will call me if the fever returns. 3 . A cquired hypothyroidism - E03.9 N otes :Comprehensive blood work including thyroid function tests will be done. No change in her medication today was necessary. 4 . H yperlipidemia - E78.5 N otes :Her lipids have been stable. We discussed weight loss healthy diet today at length. Plan: * Treatment: 2. A cute asthmatic bronchitis Continue Triamcinolone Acetonide Cream, 0.1 %, 1 application, Externally, Twice a day; C ontinue PHENobarbital Tablet, 32.4 MG, 1 tablet, Orally, five times a day; C ontinue Multivitamin Adults 50+ Tablet, -, Orally; C ontinue Vitamin D Tablet, 1000 UNIT, 1 tablet, Orally, Once a day;?Continue Levothyroxine Sodium Tablet, 125 MCG, TAKE ONE TABLET BY MOUTH EVERY DAY IN THE MORNING ON AN EMPTY STOMACH; C ontinue Melatonin Tablet, 3 MG, 1 tablet at bedtime as needed, Orally, Once a day; C ontinue predniSONE Tablet, 20 MG, 1 tablet with food or milk, Orally, Once a day; Continue Wegovy Solution Auto-injector, 0.25 MG/0.5ML, 0.5 mL, Subcutaneous, weekly; C ontinue Semaglutide Tablet, 3 MG, one tablet, Orally, once a day. 3. A cquired hypothyroidism L AB: PROFILE, FASTING (COMPREHENSIVE METABOLIC) L AB: TSH (THYROID STIMULATING HORMONE) L AB: CBC WITH AUTO DIFF L AB: Lipid Panel L AB: Free T4 (Free Thyroxine) 4. H yperlipidemia L AB: PROFILE, FASTING (COMPREHENSIVE METABOLIC) L AB: TSH (THYROID STIMULATING HORMONE) L AB: CBC WITH AUTO DIFF L AB: Lipid Panel L AB: Free T4 (Free Thyroxine) 5. O thers Continue B12. * Procedure Codes: 9 9442 PHONE E/M BY PHYS 11-20 MIN * Preventive Medicine: Counseling: C are goal follow-up plan: Counseling for abnormal BMI given Y es Above Normal BMI Follow-up D ietary management education, guidance, and counseling, Dietary needs education, Exercise promotion: strength training, Exercise promotion: stretching, Feeding regime, Giving encouragement to exercise, Lifestyle education regarding diet, Nutrition / feeding management, Nutrition therapy, Prescribed activity/exercise education, Prescribed diet education, Prescribed dietary intake, Special diet education, Weight monitoring , Intervention, Order not done: Medical or Other reason not done * Follow Up: 4 Months, 3 or 4 months (Reason: OV, To monitor the patient's progress with the [facility] weight loss program) * Images: * Sign off status: Completed true * Provider: Ericka Russell MD Date: 05/02/2023 Generated for Ben bennett/Lorenzo/Dulce on: 05/30/2024 12:01 PM EST History and Physical Notes * HPI (History of Present Illness) Category Sub-Category Detail Notes Telehealth Location of [facility] ider rendering services:: {...} [address] [facility] [address] Location of patient:: address listed in demographics [...]
--- OUTSIDE RECORDS SUMMARY | 2024-06-26 05:00 | XMS_ITS ---
Author Organization Elian Russell III, MD Address [address] [place] [place] [address] Care Team Providers Care Training And Development Officer Name Role Phone Dr. Elian Russell III [...] Risk Notes Problem Right upper quadrant pain ([id number]) Right upper quadrant abdominal pain (R10.11) Active [...] Date Provider Diagnosis Elian Russell III, MD [address] [place] [address] [place] [address] 06/26/2024 Elian Russell Acute asthmatic bronchitis J45.909 [...] day Pending Test Test Name Order Date [facility] 06/26/2024 Next Appt Details Follow Up: 6 Weeks, Reason: ov Provider Name:Elian Russell , 08/17/2025 09:30:00 AM, [address] [place] [address] [address] [place], [address], Provider Name:Elian Russell , 02/01/2026 09:30:00 AM, [address] [place] [address] [place], [address], Progress Notes * Tara CORTEZFranciscoOB:1950 (73 yo F)Acc No.[id number]:06/26/2024 Progress Notes Patient: Barbara TANG Provider: Ericka Russell MD :1950 A ge:73 Y S ex:Female Date:06/26/2024 Address:[address], [id number] Subjective: * Chief Complaints: * O ral [...] type 2 ,heart disease ,alcoholism, 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 Her mother is alive Dx with type [...] ggressive nonsmoker S he was born at [facility] in [place], [place]. She has been to Dario for 46 years. They have 2 daughters, Maliha and Selene and 2 healthy grandchildren. She worked until she was 57 and then retired. She has no toxic exposures. 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 * Medications: T akingBiotin PHENobarbital [...] (Ref Range: 0.0-0.012 X10*3/uL) * Lab:Jaqui Reyes. Ashwni l Fast * Collection Date 06/22/2024 01/18/2024 [...] 06/26/2024 Generated for Lorenzai sabrina/Lorenzo/eTransmitting on: 1 05/30/2024 12:02 PM EST History and Physical Notes * [...]
--- OUTSIDE RECORDS SUMMARY | 2024-08-17 06:00 | XMS_ITS ---
Author Organization Elian Russell III, MD Address [address] [place] [address] Care Team Providers Care Chemical Tank Worker Name Role Phone Dr. Elian Russell [...] Mold Unknown Allergy Active REASON FOR VISIT Right upper quadrant abdominal discomfort, Hepatic steatosis, 9 mm herpetic lesion, Seizures, Hypothyroid, Lactose intolerant, Obesity Medications Medication SIG (Take, Route, Frequency, Duration) Notes Start Date End Date Status Biotin Active Wegovy 0.25 MG/0.5ML 0.5 mL Subcutaneous weekly 01/27/2024 Active Semaglutide 3 MG one tablet Orally on ce a day 02/10/2024 Active predniSONE 20 MG 1 tablet with food o r milk Orally Once a day 07/19/2023 Active B12 Active Melatonin 3 MG 1 tablet at bedtime as needed Orally Once a day Active Vitamin D 1000 UNIT 1 tablet Orally Once a day Active Levothyroxine Sodium 125 MCG TAKE ONE TABLET BY MOUTH EVERY DAY IN THE MORNING ON AN EMPTY STOMACH Active PHENobarbital 32.4 MG 1 tablet Orally fi ve times a day Active Multivitamin Adults 50+ - Orally Active Triamcinolone Acetonide 0.1 % 1 application Externally Twice a day 01/11/2023 Active Social History Tobacco Use: Social History Observation Description Date Details (start date - stop date) Never Smoker NA - NA Sex Assigned At : Social History Observation Description Sex Assigned At Female Tobacco Control (Standard) Question Answer Notes Tobacco use: Nonsmoker Additional Findings: Tobacco non-user Aggressive nonsmoker Vital Signs Temperature 97.1 degrees Fahrenheit 08/18/19 25 Blood pressure systolic 140 mm Hg 08/18/19 25 Blood pressure diastolic 70 mm Hg 025 Heart Rate 78 /min 08/17/2024 Height 60 in 08/17/2024 Weight 204 lbs 08/17/2024 BMI 39.84 kg/m2 08/17/2024 Encounters Encounter Location Date Provider Diagnosis Elian Russell III, MD [address] [place] [address] [place] [id number] 08/17/2024 Elian Russell Right upper quadrant abdominal pain R10.11 ; Acquired hypothyroidism E03.9 ; Lactose intolerance E73.9 ; Hyperlipidemia E78.5 and Obesity (BMI 30.0-34.9) E66.9 Assessments Encounter Date Diagnosis (ICD Code) Assessment Notes Treat ment Notes Treatment Clinical Notes 08/17/2024 Right upper quadrant abdominal pain (ICD-10 - R10.11) This is a chronic problem lasting for years. The cause is unclear. She has gained 4 pounds since her last visit. We discussed various lifestyle modification she could make to try and reduce postprandial discomfor. Pyle MRI or CT scan of the abdomen is being considered. 08/17/2024 Acquired hypothyroidism (ICD-10 - E03.9) Comprehensive blood work including thyroid function tests will be done. No change in her medication today was necessary. 08/17/2024 Lactose intolerance (ICD-10 - E73.9) She will continue with the lactase tablets. 08/17/2024 Hyperlipidemia (ICD-10 - E78.5) Her lipids have been stable. The triglycerides are elevated.We discussed weight loss healthy diet today at length. 08/17/2024 Obesity (BMI 30.0-34.9) (ICD-10 - E66.9) Her insurance does not cover weight loss. At her request we have referred her to the weight loss program at [facility]. Plan Of Treatment Medication Medication Name Sig Start Date Stop Date Notes Biotin Wegovy 0.25 MG/0.5ML 0.5 mL Subcutaneous weekly 01/27/2024 Semaglutide 3 MG one tablet Orally once a day 02/10/2024 predniSONE 20 MG 1 tablet with food o r milk Orally Once a day 07/19/2023 B12 Melatonin 3 MG 1 tablet at bedtime as needed Orally Once a day Vitamin D 1000 UNIT 1 tablet Orally Once a day Levothyroxine Sodium 125 MCG TAKE ONE TA BLET BY MOUTH EVERY DAY IN THE MORNING ON AN EMPTY STOMACH PHENobarbital 32.4 MG 1 tablet Orally fi ve times a day Multivitamin Adults 50+ - Orally Triamcinolone Acetonide 0.1 % 1 applicat ion Externally Twice a day 01/11/2023 Next Appt Details Follow Up: 4 Weeks, Reason: ov Provider Name:Elian Russell , 08/17/2025 09:30:00 AM, [address] [place] [address] [address], [place], [id number], Provider Name:Elian Russell , 02/01/2026 09:30:00 AM, [address] [place] [address] [address], [place], [id number], Progress Notes * Bjorn CORTEZOB:1950 (74 yo F)Acc No.[id number]:08/17/2024 Patient: Barbara TANG Provider: Ericka Russell MD :1950 A ge:74 Y S ex:Female Date:08/17/2024 [id number] Subjective: * Chief Complaints: * R ight upper quadrant abdominal discomfortHepatic steatosis9 mm herpetic lesionSeizuresHypothyroidLactose intolerantObesity * HPI: * : S he returns to review her recent ultrasound. She has been experiencing a sensation in the lower right thorax or right upper abdomen which she finds difficult to describe. The ultrasound of the abdomen shows a 9 mm lesion in the liver possibly a hemangioma and steatosis. ?The discomfort has not changed and is long-standing. She says it is precipitated by consuming protein. CT scan of the area. A CT scan or MRI is being considered. Telehealth L ocation of provider rendering services: { ...} [address] [facility] [address] [facility] [address] L ocation of patient: bert santiago listed in demographics for today's visit P atient identification confirmed using: ERIC López ame T elehealth method: T elephone only. Patient not visible to care provider. C onsent: P atient verbally consented to treatment, Patient verbally consented to billing insurance company, Patient informed of any privacy concerns related to method of visit T otal time spent with patient (mins) 1 5 * ROS: G eneral/Constitutional: pain R ight side of abdomen and thorax. C hills d enies. F atigue a dmits. F ever d enies. E NT: Decreased hearing d enies. R espiratory: Cough d enies. C ardiovascular: Chest pain with exertion d enies. D yspnea on exertion?denies. S hortness of breath d enies. G astrointestinal: Constipation d enies. D ecreased appetite d enies.?Diarrhea d enies. H eartburn d enies. N ausea d enies. R ectal bleeding?denies. V omiting d enies. H ematology: bruising [...] Hyperlipidemia. M other: 89 yrs, diagnosed with Hyperlipidemia, DM, HTN. D rozhter(s): alive. S lonnie: alive. M breann aunt: . 3 sister(s) - healthy. 2 daughter(s) - healthy. . Her father at 64 yrs Dx with COPD,diabetes type 2 ,heart disease ,alcoholism, lung disease (spinning frame fixer). Her mother is alive Dx with type [...] ggressive nonsmoker S he was born at [facility] in [place], [place]. She has been to Dario for 46 years. They have 2 daughters, Maliha and Selene and 2 healthy grandchildren. She worked until she was 57 and then retired. She has no toxic exposures. 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 * Medications: T akingTriamcinolone Acetonide [...] as needed Orally Once a day B12 Biotin Taking Triamcinolone Acetonide 0.1 % Cream 1 application [...] needed Orally Once a day Taking B12 Taking Biotin DiscontinuedpredniSONE 20 MG Tablet 1 tablet with food or milk Orally Once a day Wegovy 0.25 MG/0.5ML Solution Auto-injector 0.5 mL Subcutaneous weekly Semaglutide 3 MG Tablet one tablet Orally once a day Medication List reviewed and reconciled with the patientDiscontinued predniSONE 20 MG Tablet 1 tablet with [...] * Vitals: H t: 60, Wt:204, BMI:39.84, BP:140/70, HR:78, Temp:97.1, Ht-cm: 152.4, Wt-k.53. * P ast Orders: Lab:Thyroid Stimulating Horm one * Collection Date 06/22/2024 01/18/2024 12/25/2022 Collection Time 07:46 AM 07:55 AM 06:43 AM Order Date 06/22/2024 01/18/2024 12/25/2022 Thyroid Stimulating Hormone 0.57 (Ref Range: 0.32-4.0 uIU/mL) 1.96 (Ref Range: 0.32-4.0 uIU/mL) 0.60 (Ref Range: 0.32-4.0 uIU/mL) * Lab:Complete Blood Count Aut o Diff * [...] 0.000 (Ref Range: 0.0-0.012 X10*3/uL) * Lab:Jaqui obregon Fast * Collection Date 06/22/2024 01/18/2024 12/25/2022 [...] 0.71-1.85 ng/dL) 0.93 (Ref Range: 0.71-1.85 ng/dL) Assessment: * Assessment: 1. R ight upper quadrant abdominal pain - R10.11 (Primary) N otes :This is a chronic problem lasting for years. The cause is unclear. She has gained 4 pounds since her last visit. We discussed various lifestyle modification she could make to try and reduce postprandial discomfor. Pyle MRI or CT scan of the abdomen is being considered. 2 . A cquired hypothyroidism - E03.9 N otes :Comprehensive blood work including thyroid function tests will be done. No change in her medication today was necessary. 3 . L actose intolerance - E73.9 N otes :She will continue with the lactase tablets. 4 . H yperlipidemia - E78.5 N otes :Her lipids have been stable. The triglycerides are elevated.We discussed weight loss healthy diet today at length. 5 . O besity (BMI 30.0-34.9) - E66.9 N otes :Her insurance does not cover weight loss. At her request we have referred her to the weight loss program at [facility]. Plan: * Treatment: 2. O thers Continue Triamcinolone Acetonide Cream, 0.1 %, 1 [...] or milk, Orally, Once a day; Continue B12; C ontinue Wegovy Solution Auto-injector, 0.25 MG/0.5ML, 0.5 mL, Subcutaneous, weekly; C ontinue Semaglutide Tablet, 3 MG, one tablet, Orally, once a day. * Procedure Codes: 9 8012 SYNCH AUDIO-ONLY EST SF 10 * Preventive Medicine: Counseling: C are goal [...] reason not done * Follow Up: 4 Weeks (Reason: ov) * Images: * Sign off status: Completed true * Provider: Ericka Russell MD Date: 0 08/17/2024 Generated for Ben bennett/Lorenzo/Dulce on: 05/30/2024 12:02 PM EST History and Physical Notes * HPI (History of Present Illness) Category Sub-Category Detail Notes Telehealth Location of [facility] rendering services:: {...} [address] [place] [id number] Location of patient:: address listed in demographics [...]
--- OUTSIDE RECORDS SUMMARY | 2024-11-10 05:33 | XMS_ITS ---
Author Organization Elian Russell III, MD Address [address] [address] Care Team Providers Care Airplane Pilot Photogrammetry Name Role Phone Dr. Elian Russell III Primary Care Provider REASON FOR VISIT cataract surgery cancelled Social History Sex Assigned At : Social History Observation Description Sex Assigned At Female Encounters Encounter Location Date Provider Diagnosis Elian Russell III, MD [address] [place] [address] [place] [address] 11/10/2024 Elian Russell Plan Of Treatment Next Appt Details Provider Name:Elian Russell , 08/17/2025 09:30:00 AM, [address] [place] [address] [place], [address], Provider Name:Elian Russell , 02/01/2026 09:30:00 AM, [address] [place] [address] [place], [address], Progress Notes * Bjorn ALASOB:1950 (74 yo F)Acc No.[id number]:11/10/2024 Patient: Barbara TANG :1950 A ge:74 Y S ex:Female Address:[address] [place], [address] * true * Date: Generated for Printi ng/Fachloég/eTransmitting on: 05/30/2024 12:02 PM EST
--- OUTSIDE RECORDS SUMMARY | 2024-11-17 13:15 | XMS_ITS ---
Author Organization Elian Russell III, MD Address [address] [place] [address] Care Team Providers Care Assorter Name Role Phone Dr. Elian Russell III Primary Care Provider [phone] REASON FOR VISIT Pre-Op Social History Sex Assigned At : Social History Observation Description Sex Assigned At Female Encounters Encounter Location Date Provider Diagnosis Elian Russell III, MD [address] [place] [address] [place] [address] 11/17/2024 Elian Russell Plan Of Treatment Next Appt Details Provider Name:Elian Russell , 08/17/2025 09:30:00 AM, [address] [place] [address] [place], [address], Provider Name:Elian Russell , 02/01/2026 09:30:00 AM, [address] [place] [address] [place], [address], Progress Notes * Tara CORTEZFranciscoOB:1950 (74 yo F)Acc No.[id number]:11/17/2024 Patient: Barbara TANG Provider: Ericka Russell MD [...] 11/17/2024 Generated for Ben bennett/Lorenzo/Dulce on: 1 05/30/2024 12:01 PM EST
--- OUTSIDE RECORDS SUMMARY | 2025-01-27 10:00 | XMS_ITS ---
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 Elian Russell III [...] Problem Screening for malignant neoplasm of colon (322388342) Screen for colon cancer (Z12.11) Active confirmed She continues to decline to have a colonoscopy. Problem Liver mass (377744771) Liver mass (R16.0) Active confirmed There is a 9 mm abnormality in the upper Right lobe of the liver. She declined to have imaging done for another 6 months. Problem 054529354 Morbid obesity (E66.01) Active confirmed Her body [...] Date Provider Diagnosis Elian Russell III, MD [address] [place] [address] [place] [address] 01/27/2025 Elian Russell Encounter for immunization Z23 [...] Provider Name:Elian Russell , 08/17/2025 09:30:00 AM, [address] [place] [address] , [address], [place], [address], Provider Name:Elian Russell , 02/01/2026 09:30:00 AM, [address] [place] [address] [address] [place], [address], Progress Notes * Bjorn CORTEZOB:1950 (74 yo F)Acc No.[id number]:01/27/2025 Progress Notes Patient: Barbara TANG Provider: Ericka Russell MD :1950 A ge:74 Y S ex:Female Date:01/27/2025 Address: [address] [id number] Subjective: * Chief Complaints: * A nnual [...] type 2 ,heart disease ,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 Her mother is alive Dx with type [...] egative S he was born at [facility] in [place], [place]. She has been to Dario for 46 years. They have 2 daughters, Maliha and Selene and 2 healthy grandchildren. She worked until she was 57 and then retired. She has no toxic exposures. 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 * Medications: T akingAirborne [...] 0674 CCIIV4 VAC NO PRSV 0.5 ML [id number] FLU VACC 4 BREEZY 3 YRS PLUS [...] MD Date: Generated for Ben bennett/Lorenzo/eTransmitting on: 05/30/2024 12:01 PM EST History and [...]
--- OUTSIDE RECORDS SUMMARY | 2025-03-01 08:22 | XMS_ITS ---
Author Organization Elian Russell III, MD Address [address] [address] Care Team Providers Care Automatic Lathe Setter Name Role Phone Dr. Elian Russell III Primary Care Provider Results Component Value Reference Range Notes COLOGUARD Reviewed date:03/01/2025 01:23:16 PM Interpretation: Performing Lab: Notes/Report: Result Negative REASON FOR VISIT Cologuard order Social History Sex Assigned At : Social History Observation Description Sex Assigned At Female Encounters Encounter Location Date Provider Diagnosis Elian Russell III, MD [address] [place] [address] [place] [address] 03/01/2025 Elian Russell Encounter for screening for malignant neoplasm of colon Z12.11 Assessments Encounter Date Diagnosis (ICD Code) Assessment Notes Treatment Notes Treatment Clinical Notes 03/01/2025 Encounter for screening for malignant neoplasm of colon (ICD-10 - Z12.11) Plan Of Treatment Next Appt Details Provider Name:Elian Russell , 08/17/2025 09:30:00 AM, [address] [place] [address] [place], [address], Provider Name:Elian Russell , 02/01/2026 09:30:00 AM, [address] [place] [address] [place], [address], Progress Notes * Bjorn CORTEZOB:1950 (74 yo F)Acc No.[id number]:03/01/2025 Patient: Barbara TANG :1950 A ge:74 Y S ex:Female Address: [place], [address] Subjective: * Chief Complaints: * C ologuard order * Medical History: * Surgical History: * Hospitalization/Major Diagno stic Procedure: * Medications: Objective: * Vitals: * Physical Examination: Assessment: * Assessment: 1. E ncounter for screening for malignant neoplasm of colon - Z12.11 Plan: * Treatment: Value Reference Range R esult Negative * Procedure Codes: * true * Date: Generated for Ben bennett/Lorenzo/eTneenasmitting on: 05/30/2024 12:01 PM EST
--- NOTE | 2025-03-29 10:04 | MHC.OFFVIS ---
Vital Signs 03/29/25 10:10 Height 5 ft Weight 213 lb 6.519 oz BMI 41.7 BP 112/64 Blood Pressure Location Lt brachial Position Sitting Pulse 89 Pulse Source Pulse Oximeter Pulse Oximetry (%) 98 Oxygen Delivery Method Room Air Intake Visit Reasons: f/u hypothyroidism Intake Note: Patient present today for Hypothyroidism follow up visit. Tip Out Worker Required: No Accompanied by: Self / Same As Patient Allergies divalproex sodium (From DEPAKOTE) Allergy (Unknown, Verified 03/29/25 10:10) UNKNOWN phenytoin (Dilantin) Allergy (Unknown, Verified 03/29/25 10:10) hives epinephrine Adverse Reaction (Unknown, Verified 03/29/25 10:10) Tachycardia From DILANTIN Allergy (Mild, Uncoded 03/29/25 10:10) HIVES Benadryl Adverse Reaction (Unknown, Uncoded 03/29/25 10:10) rapid heart beat Medication List - Last Reconciled 03/29/25 by Elian Chavis MD cholecalciferol (vitamin D3) 50 mcg PO DAILY cyanocobalamin (vitamin B-12) (Vitamin B-12) 50 mcg PO .every other day upuoytdz-vwx-ysntg-mqi998-zcyt 500-500-66.7 mg (Jvkunqnowcw-Ahnjltnrddb-KWX (with antiox)) tabs PO Levoxyl (levothyroxine) 125 mcg PO DAILY NS multivitamin 1 tab PO DAILY phenobarbital 162 mg (5 x 32.4 mg) PO DAILY 90 days HPI Comments Details: This is a 74-year-old white female previously seen by myself here at [facility] for management of hypothyroidism. Patient is currently on Levoxyl 125 mcg q.d.. She denies any symptoms of hypothyroidism hyperthyroidism. Gained 100 lbs in past 2 yrs [facility] Medical History Weight gain Seizure Hypothyroidism Surgical History History of cholecystectomy History of tonsillectomy and adenoidectomy H/O tubal ligation Family History Father HTN (hypertension) Diabetes Mother HTN (hypertension) Diabetes Hyperlipemia Social History Household Members: Spouse Housing: House Alcohol intake: never Patient Tobacco Use Status: Never used Tobacco Current occupational status: retired Sexual orientation: Straight/Heterosexual Gender identity: Female Female Reproductive History Menstrual Age of Menarche: 13 Physical Exam Vital Signs: Last Vital Signs Pulse 89 03/29/25 10:10 BP 112/64 03/29/25 10:10 Pulse Ox 98 03/29/25 10:10 Oxygen Delivery Method Room Air 03/29/25 10:10 BMI result Body Mass Index 41.7 Const Other: Thyroid gland is normal size weighs about 15 g . There are no thyroid nodules palpated. Reflexes 2+ DTR. Somewhat of Cushingoid appearance Assessment & Plan Assessment & Plan (1) Hypothyroidism: Code(s): E03.9 - Hypothyroidism, unspecified Category: Medical Plan: This 74-year-old white female with a history of hypothyroidism be replaced on 125 mcg of Levoxyl She appears to be clinically and biochemically euthyroid Plan is to continue current management. Will check 24 hr UFC (pt did not do it last time ) Orders: Orders Cortisol, Free 24Hr Urine 1 Month R63.5 - Abnormal weight gain Free T4 (Free Thyroxine) 03/25/25 E03.9 - Hypothyroidism, unspecified Thyroid Stimulating Hormone 03/25/25 E03.9 - Hypothyroidism, unspecified Creatinine, 24 Hr Group 1 Month R63.5 - Abnormal weight gain Coding Level of Care Code Est Pt Level 3 (04937) Add On Problem Visit Only Diagnoses Hypothyroidism E03.9
[2025-03-29 10:10] VITALS: BP 112/64; PULSE 89; O2SAT 98; BMI 41.7
--- OUTSIDE RECORDS SUMMARY | 2025-03-29 12:03 | XMS_ITS | Patient Health Record ---
Author Organization Elian Russell III, MD Address [address] [place] [address] Care Team Providers Care Housekeeping Assistant Name Role Phone Dr. Elian Russell III [...] ff Reviewed date:06/24/2024 08:50:19 PM Interpretation: Performing Lab:[facility], [address] [place] [phone] Notes/Report: White Blood Count 7.2 4.8-10.8 X10*3/uL [...] NRBC Abs Auto 0.000 0.0-0.012 X10*3/uL Comprehensive [place]. Panel Fa st Reviewed date:06/24/2024 08:50:19 PM Interpretation: Performing Lab:[facility], [address] [place] [phone] Notes/Report: Sodium 142 135-145 mmol/L Potassium 4.2 [...] Panel Reviewed date:06/24/2024 08:50:19 PM Interpretation: Performing Lab:[facility], [address] [place] [phone] Notes/Report: Triglycerides 163 <150 mg/dL Desirable Triglyceride: [...] Thyroxine) Reviewed date:06/24/2024 08:50:19 PM Interpretation: Performing Lab:[facility], [address] [place] [phone] Notes/Report: Free T4 (Free Thyroxine) 1.05 0.71-1.85 ng/dL Thyroid Stimulating Hormone Reviewed date:06/24/2024 08:50:19 PM Interpretation: Performing Lab:[facility], [address] [place] [phone] Notes/Report: Thyroid Stimulating Hormone 0.57 0.32-4.0 uIU/mL TSH 3rd Generation ([facility]) US abdomen complete Reviewed date:01/25/2025 04:45:29 AM Interpretation: Performing Lab: Notes/Report: [address] [address] Ultrasound Report Signed Patient: Barbara Alas MR#: [id number] 807 : 1950 Acct:[id number] Age/Sex: 74 / F ADM Date: 08/05/24 Loc: HO.US Attending Dr: Elian Russell MD Ordering Physician: Elian Russell MD Date of Service: 08/05/24 Procedure(s): US abdomen complete Accession Number(s): [id number] cc: Elian Russell MD EXAMINATION: US ABDOMEN [...] OV> 08/05/24 1722 DD/ 3 TD/TT: 08/05/24923 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: [address] [address] Ultrasound Report Signed Patient: Tara Alas MR#: [id number] 807 : 1950 Acct:[id number] Age/Sex: 74 / F ADM Date: 08/05/24 Loc: HO.US Attending Dr: Elian Russell MD Ordering Physician: Elian Russell MD Date of Service: 08/05/24 Procedure(s): US abdomen complete Accession Number(s): [id number] cc: Elian Russell MD EXAMINATION: US ABDOMEN [...] Barrera MD in OV> 08/05/24 1722 DD/ TD/TT: 08/05/24923 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: Free T4 (Free Thyroxine) Reviewed date:03/27/2025 08:08:51 AM Interpretation: Performing Lab:[facility], [address] [place] [phone] Notes/Report: Free T4 (Free Thyroxine) 0.99 0.71-1.85 ng/dL Thyroid Stimulating Hormone Reviewed date:03/27/2025 08:08:51 AM Interpretation: Performing Lab:[facility], [address] [place] [phone] Notes/Report: Thyroid Stimulating Hormone 0.61 0.32-4.0 uIU/mL [...] Status W/U Status Risk Notes Problem Hyperlipidemia (35074833) Hyperlipidemia (E78.5) Active confirmed Her lipids have been stable. The triglycerides are elevated.We discussed weight loss healthy diet today at length. Problem [id number] Obesity (BMI 30.0-34.9) (E66.9) Active confirmed Her insurance does not cover weight loss. At her request we have referred her to the weight loss program at [facility]. Problem Liver mass (737779845) Liver mass (R16.0) Active confirmed There is a 9 mm abnormality in the upper Right lobe of the liver. She declined to have imaging done for another 6 months. Problem 409485153 Acquired hypothyroidism (E03.9) Active confirmed Comprehensive blood work including thyroid function tests will be done. No change in her medication today was necessary. Problem Right upper quadrant pain (603423113) Right upper quadrant abdominal pain (R10.11) Active confirmed The pain has resolved for today. She declined further imaging of any kind.She did agree to have an ultrasound of the abdomen 6 months from today. This was scheduled. Problem 786791800 Morbid obesity (E66.01) Active confirmed Her body mass index is slightly over 40. We have discussed diet and nutrition. We made a plan to lose weight at a rate of one half of a pound per week. She declined any weight loss medications. Problem 035810354 Lactose intolerance (E73.9) Active confirmed She will contin ue with the lactase tablets. Problem 980459520 Acute asthmatic bronchitis (J45.909) Active confirmed She has a new viral syndrome as does her she will use a cough suppressant containing dextromethorphan and an expectorant. He will use Tylenol. She will call me if the fever returns. 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 She is compliant with her phenobarbital and is up-to-date with her neurology visits. Problem 150839008443032 Colonoscopy refused (Z53.20) Active confirmed She has refused this in the past and visit again today. Problem Screening for malignant neoplasm of colon (690197087) Screen for colon cancer (Z12.11) Active confirmed [...] Date Provider Diagnosis Elian Russell III, MD [address] [place] [address] [place] [phone] 06/26/2024 Elian Russell Acute asthmatic bronchitis J45.909 ; Right upper quadrant abdominal pain R10.11 ; Lactose intolerance E73.9 ; Acquired hypothyroidism E03.9 ; Partial symptomatic epilepsy with complex partial seizures, intractable, without status epilepticus G40.219 and Hyperlipidemia E78.5 Elian Russell III, MD [address] [place] [address] [place] [address] 08/17/2024 Elian Russell Right upper quadrant abdominal pain R10.11 ; Acquired hypothyroidism E03.9 ; Lactose intolerance E73.9 ; Hyperlipidemia E78.5 and Obesity (BMI 30.0-34.9) E66.9 Elian Russell III, MD [address] [place] [address] [place] [address] 01/27/2025 Elian Russell Encounter for immunization Z23 ; Liver mass R16.0 ; Right upper quadrant abdominal pain R10.11 ; Screen for colon cancer Z12.11 ; Screening mammogram, encounter for Z12.31 ; Morbid obesity E66.01 ; Partial symptomatic epilepsy with complex partial seizures, intractable, without status epilepticus G40.219 ; Acquired hypothyroidism E03.9 ; Lactose intolerance E73.9 and Hyperlipidemia E78.5 Elian Russell III, MD [address] [place] [address] [place] [address] 11/10/2024 Elian Russell III, MD [address] [place] [address] [place] [address] 03/01/2025 Elian Russell Encounter for screen ing [...] her to the weight loss program at [facility]. 01/27/2025 Screening mammogram, encounter for (ICD-10 - [...] Lipid Panel 08/07/2023 Free T4 (Free Thyroxine) 03/02/2024 Free T4 (Free Thyroxine) 08/07/2023 Free T4 (Free Thyroxine) 01/23/2023 MM tomosynthesis screening BI 01/27/2025 Next Appt Details Provider Name:Elian Russell , 08/17/2025 09:30:00 AM, [address] [place] [address] [address], [place], [address], Provider Name:Elian Russell , 02/01/2026 09:30:00 AM, [address] [place] [address] [address], [place], [address], Insurance Providers Payer Name Payer Address Payer Phone Subscriber Number Group Number Insured Name Patient Relationship to Insured Coverage Start Date Coverage End Date [facility] [address] [place], [place] [id number] [phone] [id number] Barbara Alas Self - patient is the insured MEDICARE NGS [address] [place] [address] [id number] Barbara Alas Self - patient is the [...]
== END 2025-03-29 10:31 | disposition home or self-care (01) ==
LOC: HO.ENCR 10:01
PROVIDERS: PCP Internal Medicine Medical Oncology; Visit Provider Internal Medicine Endocrinology, Diabetes & Metabolism
DX: E03.9 Hypothyroidism, unspecified (principal)
CPT/HCPCS: 99213; G2211

== ENCOUNTER → 2025-03-29 10:01 | Outpatient (BNVA) | payer MEDICARE, SELFPAY | PROVIDERS: PCP Internal Medicine Medical Oncology; Visit Provider Internal Medicine Endocrinology, Diabetes & Metabolism | DX: E03.9 Hypothyroidism, unspecified (principal); R63.5 Abnormal weight gain; Z68.41 Body mass index [BMI] 40.0-44.9, adult | CPT/HCPCS: 99212 ==